=== PATIENT | female | born 1955 | race Caucasian/White ===

== ENCOUNTER 2024-08-12 08:19 | Inpatient (IN) | payer MEDICARE, MEDICAID, SELFPAY ==
[2024-08-12] VITALS (15 sets, daily range): BP systolic 136–162; BP diastolic 64–93; PULSE 72–91; RESP 16–100; TEMP 36.2–39.1; O2SAT 92–100; BMI 40.4
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
--- NOTE | 2024-08-12 08:38 | EKG_ITS ---
[facility] Test Date: 2024-08-12 Pat Name: LUCILLE BLANCO Department: Room: - Gender: Female Insurance Claims Clerk: : 1955 Requested By: Siva Cornejo Order Number: [id number] Reading MD: Siva Cornejo Measurements Intervals [place] Rate: 79 P: 49 CO: 168 QRS: 55 QRSD: 128 T: 1 QT: 400 QTc: 460 Interpretive Statements SINUS RHYTHM RIGHT BUNDLE BRANCH BLOCK [120+ ms QRS DURATION, UPRIGHT V1, 40+ ms S IN I/aVL/V4/V5/V6] MODERATE T-WAVE ABNORMALITY, CONSIDER LATERAL ISCHEMIA [-0.1+ mV T-WAVE IN I/aVL/V5/V6] Compared to ECG 12/31/2023 14:56:40 T-wave abnormality now present Possible ischemia now present /store/S0/[id number]/[id number].pdf
--- NOTE | 2024-08-12 08:55 | XR_ITS ---
Examination: AP chest single view Technique one AP portable upright chest single view Exam date and time: August 12, 2024 0929 hrs. Comparison April 22, 2020 Indications: Chest pain beginning one week ago Findings: Mild to moderate CHF Mild enlargement cardiac contour Prominent vascular congestion Perihilar edema Prominent osteopenia Impression: Mild to moderate CHF
--- NOTE | 2024-08-12 09:15 | PD.EDSYNC ---
ED Syncope RME/HPI General Chief Complaint: Syncope / Near Syncope Stated Complaint: SYNCOPAL, HYPOTENSION WHILE SEATED Arrival date/time: 08/12/24 08:19 RME / HPI RME / HPI narrative: 69 year old female with history of cerebral palsy, seizures, CHF, hypertension presents to the ED BIBA from detention for evaluation of syncopal episode today. Per wafer line worker, the patient was found slumped over in the chair. Evidently blood pressure was taken at that time and was 65/40. 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 Per medics report, on scene patients blood pressure had normalized SBP 135. No falls or trauma reported. Caregiver denies any history of syncope although does report previous episodes of lethargy. Additionally reports they consulted with patients PCP last week for vaginal pain and was prescribed antibiotics for UTI although no urine was collected. Related Data Home Medications ?Medication ?Instructions ?Recorded ?Confirmed carbamazepine 200 mg tablet 200 mg PO BID \ days ##0 04/04/09 12/31/23 (Tegretol) furosemide 40 mg tablet (Lasix) 20 mg PO QAM ##0 04/04/09 12/31/23 simvastatin 20 mg tablet 20 mg PO QDAY ##0 04/04/09 12/31/23 docusate sodium 100 mg capsule 100 mg PO BID ##0 06/05/17 12/31/23 levetiracetam 500 mg tablet 500 mg PO BID Seizures ##0 06/05/17 12/31/23 potassium chloride 8 mEq 8 PO QAM 02/23/20 04/21/20 tablet,extended release acetaminophen 325 mg tablet 650 mg PO Q4H PRN pain/fever 04/21/20 12/31/23 bisacodyl 10 mg rectal suppository 10 mg AR Q8H PRN Constipation 04/21/20 12/31/23 calcium carbonate 600 mg PO BID 04/21/20 12/31/23 cholecalciferol (vitamin D3) 10 400 unit PO BID 04/21/20 12/31/23 mcg (400 unit) tablet (Vitamin D3) ferrous sulfate 325 mg (65 mg 325 mg PO QDAY 04/21/20 12/31/23 iron) tablet ketoconazole 2 % topical cream 1 applic topical PRN PRN Rash 04/21/20 12/31/23 lactulose 10 gram/15 mL oral 30 ml PO QDAY 04/21/20 12/31/23 solution metoprolol succinate 25 mg 25 mg PO QDAY 12/31/23 12/31/23 tablet,extended release 24 hr omeprazole 20 mg tablet,delayed 20 mg PO QDAY 12/31/23 12/31/23 release Previous Rx's ?Medication ?Instructions ?Recorded apixaban 2.5 mg tablet (Eliquis) 2.5 mg PO BID #70 tabs 02/26/20 hydralazine 25 mg tablet 25 mg PO TID #90 tabs 01/03/24 losartan 100 mg tablet 100 mg PO QDAY #30 tabs 01/03/24 Allergies Allergy/AdvReac Type Severity Reaction Status Date / Time theophylline Allergy Intermediate unknown Verified 04/21/20 19:56 promethazine Allergy Unknown UNKNOWN Verified 04/17/17 11:12 amoxicillin Allergy Verified 04/21/20 19:56 ciprofloxacin (From Cipro) Allergy Verified 04/21/20 19:56 Review of Systems Review of Systems ROS Unobtainable: unobtainable due to medical condition Past Medical History Past Medical History NEUROLOGIC: Positive Neurological Disorders, Seizures and Cerebral Palsy CARDIAC: Positive Cardiac Disorders, Peripheral Vascular Disease, Hypercholesterolemia, Edema and Hypertension GASTROINTESTINAL: Positive Gastrointestinal Disorders GENITOURINARY: Negative Genitourinary Disorders MUSCULOSKELETAL: Positive Musculoskeletal Disorders and Fractures ENDOCRINE: Positive Endocrine Disorders and Hypoglycemia Surgical History SURGICAL: Positive Abdominal Surgery Social History SMOKING STATUS: Unknown if ever smoked SECOND HAND EXPOSURE: No SUBSTANCE USE: does not use ED Exam Narrative Physical exam: Physical Exam: General: The vital signs were reviewed. Has audible wheezes obvious developmental delays cordial and talks with her usual self. The patient is non-toxic, in no apparent distress and appears healthy with a patent airway, no respiratory distress and has no apparent circulatory problems. Head & Scalp: Normocephalic, atraumatic. Face: Appears normal and is without lesions, deformity. Ears: Left external pinna appears normal. Right external pinna appears normal. Eyes: The sclera is anicteric. No obvious photophobia. The Left and Right Orbit/Lid/Conjunctiva appears normal without swelling, discoloration or injection. Nose: The nose is without deformity, discharge or tenderness; Throat: Appears normal. The mucous membranes are pink and moist without exudates, redness or mass seen. The tongue appears normal. Neck: The neck is supple and no apparent mass or adenopathy. Chest: The chest wall is normal in size and symmetry and has no chest wall tenderness or crepitus. The patient displays normal ventilator effort without retractions, accessory muscle use and has adequate air movement bilaterally with bilateral wheezes and no rales. Cardiovascular: Regular rate and rhythm; No murmurs, rubs, or gallops; Gastrointestinal: The abdomen appears normal. No obvious hernias or mass. The abdomen is soft and benign, non-distended, with no pain, no guarding and no rebound tenderness. Bowel sounds are present and normal sounding. No CVA tenderness. Genitourinary: Back/Spine: Normal inspection Extremities/Musculoskeletal/lymphatic: The bilateral upper and lower extremities are warm. There is no evidence of arterial insufficiency. There is no evidence of venous insufficiency/edema. The patient spontaneously moves bilateral upper and lower extremities with no pain and no limitation of movement. There is no apparent, injury or trauma. Skin: The skin is warm, dry and intact. No rashes. No petechia. No purpura. No abnormal bruising. The color is appropriate with no cyanosis. Mental status/Psychiatric: Mental status is baseline with cognitive delays but is verbal follows commands Neurological: The patient is awake, alert, interactive, cordial, cooperative and is oriented to name and situation. The patient follows commands and answers historical question with no impairment. There is no visual disturbance apparent. The pupils are equal and reactive bilaterally with normal eye movements and no diplopia The bilateral upper and lower extremities have normal strength, normal range of motion and normal functioning. The gait, station and balance were not tested due to acuity Course Course Course Narrative: chest xray ordered to help determine etiology of cough. Quality Measures Current suspected stage: sepsis Possible source: unknown Blood cultures ordered: completed in ED Antibiotic ordered: Yes Pertinent labs: 08/12/24 08/12/24 09:25 12:50 Lactic Acid 2.7 H mMol/L 3.3 H mMol/L (0.4-2.0) (0.4-2.0) Procalcitonin 0.11 ng/ml (0.0-0.49) sepsis Orders Category Date Time Status Admit to Inpatient Status Routine Admission 08/12/24 13:00 Active Patient Condition Routine Admission 08/12/24 13:00 Ordered Activity as Tolerated Routine Care 08/12/24 13:01 Ordered Bedside COVID-19 Antigen Test NOW Care 08/12/24 09:24 Active Bedside Influenza A&B Antigen Test NOW Care 08/12/24 09:23 Completed EKG (ED ONLY) *Do not use* NOW Care 08/12/24 08:38 Completed Miscellaneous Nursing Order X1 Care 08/12/24 09:57 Active Miscellaneous Nursing Order X1 Care 08/12/24 10:17 Active Neuro Check Q4H Care 08/12/24 12:59 Active Notify provider NEEDED Care 08/12/24 13:00 Active Obtain weight daily Care 08/12/24 13:01 Active Vital Signs, Non-Routine Q4H Care 08/12/24 13:00 Ordered Vital Signs, Non-Routine Q4H Care 08/12/24 17:00 Ordered Vital Signs, Non-Routine Q4H Care 08/12/24 21:[address] chest abdomen pelvis w con SEPSIS PROTOCOL Stat Exams 08/12/24 12:22 Taken EKG (ED Only) Stat Exams 08/12/24 08:38 Draft XR chest 1V portable Stat Exams 08/12/24 08:55 Completed B-Type Natriuretic Peptide Stat Lab 08/12/24 09:25 Completed Blood Culture (Lab) Stat Lab 08/12/24 09:25 Received CBC AM DRAW Lab 08/13/24 05:00 Ordered CBC AM DRAW Lab 08/14/24 05:00 Ordered CBC AM DRAW Lab 08/15/24 05:00 Ordered CBC Stat Lab 08/12/24 09:25 Completed Comprehensive Metabolic Panel AM DRAW Lab 08/13/24 05:00 Ordered Comprehensive Metabolic Panel AM DRAW Lab 08/14/24 05:00 Ordered Comprehensive Metabolic Panel AM DRAW Lab 08/15/24 05:00 Ordered Comprehensive Metabolic Panel Stat Lab 08/12/24 09:25 Completed Lactate (Lactic Acid) Stat Lab 08/12/24 09:25 Completed Lactic Acid, 3 HR Stat Lab 08/12/24 12:50 Completed Lipase Stat Lab 08/12/24 09:25 Completed Magnesium AM DRAW Lab 08/13/24 05:00 Ordered Magnesium AM DRAW Lab 08/14/24 05:00 Ordered Magnesium AM DRAW Lab 08/15/24 05:00 Ordered Magnesium Stat Lab 08/12/24 09:25 Completed Procalcitonin Stat Lab 08/12/24 09:25 Completed RSV [Respiratory Syncytial Virus Ag] Stat Lab 08/12/24 09:24 Ordered Thyroid Stimulating Hormone Routine Lab 08/13/24 13:02 Ordered Troponin I Stat Lab 08/12/24 09:25 Completed Urinalysis Stat Lab 08/12/24 09:14 Completed Urinalysis, C/S if Indicated Stat Lab 08/12/24 09:14 Completed Venous Blood Gas Stat Lab 08/12/24 09:25 Completed ALBUTEROL RT 0.5ml [Proventil Rt 0.5ml] Med 08/12/24 09:22 Discontinued 5 mg INH X1 ONE Acetaminophen Tab [Tylenol ES Tab] Med 08/12/24 10:26 Discontinued 1,000 mg PO X1 ONE Acetaminophen Tab [Tylenol Tab] Med 08/12/24 12:59 Active 650 mg PO Q6H PRN Acetaminophen Tab [Tylenol Tab] Med 08/12/24 12:59 Discontinued 650 mg PO Q6H PRN Docusate Sod [Colace] Med 08/13/24 09:00 Active 100 mg PO DAILY Enoxaparin [Lovenox] Med 08/13/24 09:00 Discontinued 40 mg SC QDAY Meropenem Inj [Merrem Inj] 1,000 mg Med 08/12/24 09:59 Discontinued SODIUM CHLORIDE 0.9% (Popper) [NS 0.9% (Popper)] 50 ml IV X1 MethylPREDNISolone.* [SoluMEDROL Inj] Med 08/12/24 09:22 Discontinued 125 mg IVP X1 ONE Milk Of Magnesia Susp [Mom Susp] Med 08/12/24 12:59 Active 30 ml PO QDAY PRN Ondansetron Inj [Zofran Inj] Med 08/12/24 12:59 Active 4 mg IV Q6H PRN Pantoprazole [Protonix] Med 08/13/24 09:00 Active 20 mg PO DAILY Sodium Chloride 0.9% 1000 ml [Ns] 1,000 ml Med 08/12/24 10:19 Discontinued IV 999 mls/hr Sodium Chloride Rt Luba 0.9% [NS Rt Luba 0.9%] Med 08/12/24 09:22 Active 3 ml INH PRN PRN Vancomycin/Ns 1 gm Ivpb 200 ml Med 08/12/24 13:15 Discontinued IV X1 Code Status Routine Oth 08/12/24 12:59 Ordered Oxygen Delivery PRN RT 08/12/24 12:59 Active Vital Signs Vital signs: Vital Signs Temperature 99.8 F 08/12/24 08:28 Pulse Rate 77 08/12/24 08:28 Respiratory Rate 27 H 08/12/24 08:28 Blood Pressure 139/73 H 08/12/24 08:28 Pulse Oximetry (%) 95 08/12/24 08:28 Oxygen Delivery Method Room Air 08/12/24 08:28 Pulse ox is 95% on room air which is adequate. Syncope MDM Narrative MDM Narrative:: Patient is a 69-year-old developmentally from a boarding care facility comes in because she was found slumped over and hypotensive at the facility. When EMS arrived they did a blood pressure blood pressure was evidently normalized but she was also alert and engaging again. They have noted that she is coughing has a history of congestive heart failure On arrival patient has acrocyanosis of her feet with some pitting edema which evidently is chronic for this patient. She is alert and interacting. O2 sats are 95% on room air. She denied any belly pain on my initial evaluation but she was wheezing and we gave her breathing treatments which she is much improved on recheck at 1225 hrs. Labs came back with an elevated white count of 21,000 with 89% neutrophils hemoglobin is 14.2 platelet count was 274,000. Venous blood gas pH is 7 3 a pCO2 of 48. Sodium 132 potassium 3.7 chloride 96 CO2 27.3 BUN 12 creatinine is 0.5. Glucose is 132 lactic acid elevated 2.7. BNP came back at 271. Procalcitonin came back negative. Urinalysis came back negative. Chest x-ray reveals some mild cardiomegaly and there is diffuse interstitial lung markings most likely consistent with congestive heart failure. Couple hours after arrival she spiked a temperature which was checked rectally and was 102.7. And a septic alert was called. The source of the patient's fever is unclear at this time as the urine has no obvious infection a chest x-ray has diffuse interstitial increased fluid most likely. There is no history of neoplasm. Her leg edema is chronic and present and does not appear to be acutely changed per the caregiver. Note there is no evidence of skin infection on her body that was found. In her throat had no complaints of pain or erythema. Should be noted when I came back and rechecked at 1225 hrs. she was complaining of belly pain at that time and her lower diffuse fashion. At this time we will get a CAT scan of her chest abdomen pelvis to see if we can find a source for her fever and further workup her belly Because of the fever tachycardia and leukocytosis we went ahead and gave her meropenem and I just added on vancomycin to extend coverage. Her blood pressures have been normal so far she just got a single fluid bolus as of 1230 hrs. Note this patient is is acrocyanosis elevated lactic acid fever tachycardic leukocytosis present at greater risk. Hospitalist was contacted and Dr. Funk will be admitting. Patient data External records reviewed:: [facility] previous records (I reviewed admission from 12/31/2023 through 01/03/2024) and EMS form Clinical information provided by:: wafer line worker Social determinants that could affect healthcare access:: housing (detention resident ) Patient has the following chronic illnesses:: cerebral palsy, seizures, CHF, hypertension How is presenting disease/condition affected by chronic disease/condition?: exacerbated by Evaluation data The following diagnostics were reviewed and interpreted by me:: lab results, radiology exam(s) and EKG tracing(s) (Sinus rhythm, rate 79, no STEMI. ) Lab and/or radiology exams considered but not ordered:: None Interpretation Summary: Ordering Physician: Siva Cornejo MD Date of Service: 08/12/24 Procedure(s): XR chest 1V portable Accession Number(s): [id number] cc: Solomon Dickson MD; Siva Cornejo MD; Aguila Waldron MD~ Examination: AP chest single view Technique one AP portable upright chest single view Exam date and time: August 12, 2024 0929 hrs. Comparison April 22, 2020 Indications: Chest pain beginning one week ago Findings: Mild to moderate CHF Mild enlargement cardiac contour Prominent vascular congestion Perihilar edema Prominent osteopenia Impression: Mild to moderate CHF Dictated By: Agulia Waldron MD Signed By: <Electronically signed by Aguila Waldron MD in OV> 08/12/24 0943 Medications / Prescriptions Medications or Prescriptions considered but not ordered:: None Medication administrations:: Medication Administration History Acetaminophen (Acetaminophen 325 Mg Tablet) 650 mg PO Q6H PRN PRN Reason: PAIN SCALE 1-3 (mild Stop: 09/11/24 12:58 Acetaminophen (Acetaminophen 500 Mg Tablet) 1,000 mg PO Q6H PRN PRN Reason: Fever >100 Stop: 09/11/24 12:58 Albuterol (Albuterol Inh 8 Gm) 2 puff INH Q2HR PRN; Protocol PRN Reason: wheezing, SOB Stop: 09/11/24 13:59 Albuterol/Ipratropium (Albuterol/Ipratropium (Duoneb) Rt Luba 3 Ml Nebu) 3 ml INH Q4HRRT PRN; Protocol PRN Reason: sob/wheezing Stop: 09/11/24 14:59 Apixaban (Apixaban 2.5 Mg Tablet) 2.5 mg PO BID BHARAT Stop: 09/11/24 20:59 Atorvastatin Calcium (Atorvastatin Calcium 20 Mg Tablet) 20 mg PO HS BHARAT Stop: 09/11/24 20:59 Carbamazepine (Carbamazepine 100 Mg Chew) 200 mg PO BID BHARAT Stop: 09/11/24 20:59 Docusate Sodium (Docusate Sod 100 Mg Capsule) 100 mg PO DAILY BHARAT; Protocol Stop: 09/12/24 08:59 Lactulose (Lactulose Syrup 20 Gm/30 Ml Udc) 20 gm PO DAILY BHARAT; Protocol Stop: 09/12/24 08:59 Levetiracetam (Levetiracetam 250 Mg Tablet) 500 mg PO BID BHARAT Stop: 09/11/24 20:59 Magnesium Hydroxide (Milk Of Magnesia Susp 30 Ml Udc) 30 ml PO QDAY PRN; Protocol PRN Reason: CONSTIPATION Stop: 09/11/24 12:58 Metoprolol Succinate (Metoprolol Succinate Xl 25 Mg Tabcr) 50 mg PO DAILY BHARAT Stop: 09/12/24 08:59 Ondansetron HCl (Ondansetron Inj 2 Mg/Ml Inj 2 Ml) 4 mg IV Q6H PRN; Protocol PRN Reason: NAUSEA OR VOMITING Stop: 09/11/24 12:58 Pantoprazole Sodium (Pantoprazole 20 Mg Tablet) 20 mg PO DAILY [facility] Stop: 09/12/24 08:59 Sodium Chloride (Sodium Chloride Rt [place] 0.9% 3 Ml Nebu) 3 ml INH PRN PRN PRN Reason: SOLN Stop: 09/11/24 09:21 Last Admin: 08/12/24 09:35 Dose: 3 ml Documented By: AA Discontinued Medications Acetaminophen (Acetaminophen 500 Mg Tablet) 1,000 mg PO X1 ONE Stop: 08/12/24 10:27 Last Admin: 08/12/24 10:29 Dose: 1,000 mg Documented By: GM Acetaminophen (Acetaminophen 325 Mg Tablet) 650 mg PO Q6H PRN PRN Reason: Fever >101.5 Stop: 09/11/24 12:58 Albuterol (Albuterol Rt 2.5 Mg/0.5 Ml Nebu) 5 mg INH X1 ONE Stop: 08/12/24 09:23 Last Admin: 08/12/24 09:34 Dose: 5 mg Documented By: AA Enoxaparin Sodium (Enoxaparin Sod Inj 40 Mg/0.4 Ml Syringe) 40 mg SC QDAY BHARAT Stop: 08/27/24 08:59 Meropenem 1,000 mg/ Sodium (Chloride) 50 mls @ 100 mls/hr IV X1 ONE Stop: 08/12/24 10:00 Last Infusion: 08/12/24 10:42 Dose: Infused Documented By: Admin: 08/12/24 10:11 Dose: 100 mls/hr Documented By: GM Sodium Chloride (Ns) 1,000 mls @ 999 mls/hr IV .Q1H1M ONE Stop: 08/12/24 11:19 Last Infusion: 08/12/24 13:29 Dose: Infused Documented By: Admin: 08/12/24 10:33 Dose: 999 mls/hr Documented By: GM Vancomycin/Sodium Chloride (Vancomycin/Ns 1 Gm Ivpb) 200 mls @ 120 mls/hr IV X1 ONE Stop: 08/12/24 14:54 Last Admin: 08/12/24 13:36 Dose: 120 mls/hr Documented By: GM Methylprednisolone Sodium Succinate (Methylprednisolone Sod Succ 62.5 Mg/Ml 2ml Vial) 125 mg IVP X1 ONE Stop: 08/12/24 09:23 Last Admin: 08/12/24 09:44 Dose: 125 mg Documented By: GM See above Consultations Consultation(s) initiated? (list below): Yes Consultation #1 (Physician, Specialty, Details): I spoke with hospitalist Dr. Funk. Discussed patients PMHx, HPI, ED course, exam findings, labs, and radiology results. The hospitalist agree to accept the patient for admission. Diagnosis Syncope Differential Diagnosis: syncope due to orthostatic hypotension, vasovagal syncope and dehydration Most likely diagnosis given after review of the tests above:: shortness of breath congestive heart failure sepsis fever closed intertrochanteric fracture of left femur leukocytosis elevated lactic acid level acrocyanosis Admission Indicated Admission indicated?: indicated Admission Request Was there a request for admission?: Yes Admission Attestation Admission request attestation: Discussed case with [] from Hospitalist service regarding admission. Discussed patients ED course, exam findings, labs, and radiology results. The Hospitalist [agrees,declines] to accept the patient for admission. Disposition Plan Disposition Plan: Admit Critical Care Time Critical Care Time Critical Care Time: Yes Total Critical Care Time (min.): 45 Attestation: The high probability of sudden, clinically significant deterioration in the patient's condition required the highest level of my preparedness to intervene urgently. The services I provided to this patient were to treat and/or prevent clinically significant deterioration. Services included the following: chart data review, reviewing nursing notes and/or old charts, documentation time, product management consultant collaboration regarding findings and treatment options, medication orders and management, direct patient care, vital sign assessments and ordering, interpreting and reviewing diagnostic studies and lab tests. Aggregate critical care time includes only time during which I was engaged in work directly related to the patient's care, as described above, whether at bedside or elsewhere in the Emergency Department. It did not include time spent performing other reported procedures or the services of residents, students, nurses or physician assistants. Discharge Plan Plan Patient Disposition: Admit Acute Care w/in Hospital Disposition Comment: Hospitalist Problem List Clinical Impression: Shortness of breath, Congestive heart failure, Sepsis, Fever, Closed intertrochanteric fracture of left femur, Leukocytosis, Elevated lactic acid level, Acrocyanosis
[2024-08-12 09:31] LABS: Lactate (Lactic Acid) 2.7 mMol/L (0.4-2.0)
[2024-08-12 09:31] LABS: Collection Type, Urine Clean Catch
[2024-08-12 09:32] LABS: Base Excess, Venous 2 (-3-3); O2 Saturation, Venous 45 % (96-97); PCO2, Venous 48 mmHg (36-56); PO2, Venous 26 mmHg (15-58); pH, Venous 7.38 (7.33-7.66)
[2024-08-12] MEDS: ALBUTEROL RT 2.5 MG/0.5 ML NEBU 5 MG INH (09:34)
[2024-08-12 09:35] LABS: Basophils % (Auto) 0 % (0-2.5); Eosinophils # (Auto) 0.1 Thou/mm3 (0.0-0.5); Eosinophils % (Auto) 1 % (0-10); Hematocrit 41.6 % (36.0-46.0); Hemoglobin 14.2 g/dL (12.0-16.0); Immature Granulocytes % (Auto) 1 % (0-0); Immature Granulocytes Auto 0.12 Thou/mm3 (0.00-0.00); Lymphocytes # (Auto) 0.5 Thou/mm3 (1.0-4.8); Lymphocytes % (Auto) 2 % (10-50); Mean Corpuscular HGB Conc 34.1 g/dl (31.0-37.0); Mean Corpuscular Hemoglobin 31.2 pg (25.0-35.0); Mean Corpuscular Volume 91 fL (80-100); Monocytes # (Auto) 1.5 Thou/mm3 (0.0-0.8); Monocytes % (Auto) 7 % (0-12); Neutrophils # (Auto) 18.8 Thou/mm3 (1.8-7.7); Neutrophils % (Auto) 89 % (37-80); Nucleated Red Blood Cell % 0 /100 WBC (0); Platelet Count 274 Thou/mm3 (140-440); RDW Standard Deviation 41.5 fL (36.4-46.3); Red Blood Count 4.55 Miln/mm3 (4.00-5.20); White Blood Count 21.1 Thou/mm3 (3.6-11.0)
[2024-08-12] MEDS: SODIUM CHLORIDE RT SOL 0.9% 3 ML NEBU INH (09:35)
[2024-08-12 09:43] LABS: Bilirubin,Urine Negative (Negative); Blood,Urine Negative (Negative); Clarity,Urine Clear (Clear/Hazy); Color,Urine Yellow (Lt Yel-Yel); Culture Indicated,Urine Not Indicated; Glucose, Urine Negative (Negative); Ketones,Urine Negative (Negative); Leukocyte Esterase,Urine Negative (Negative); Nitrite,Urine Negative (Negative); Protein,Urine Negative (Neg - Trace); RBC,Urine 1 /hpf (0-3); Specific Gravity,Urine 1.016 (1.001-1.035); Squamous Epithelial Cell,Urine < 1 /hpf (0-5); Urobilinogen,Urine Negative mg/dL (0.0-1.0); WBC,Urine 1 /hpf (0-5)
[2024-08-12] MEDS: MethylPREDNISolone SOD SUCC 62.5 MG/ML 2ML VIAL 125 MG IVP (09:44)
[2024-08-12 09:50] LABS: B-Type Natriuretic Peptide 271 pg/mL (0-100)
[2024-08-12] MEDS: MEROPENEM INJ 1,000 MG in SODIUM CHLORIDE 0.9% (Popper) 50 ML 100 MG IV (10:11)
--- NOTE | 2024-08-12 10:20 | PC.NURSE ---
ICE PACKS APPLIED UNDER PT'S KNEES BILATERALLY AND UNDER PT'S AXILLARY BILATERALLY AT THIS TIME.
[2024-08-12 10:29] LABS: Alanine Aminotransferase 16 U/L (10-49); Albumin, Serum 4.5 gm/dL (3.4-4.8); Albumin/Globulin Ratio 1.8 (1.2-2.2); Anion Gap 9 (7-16); Aspartate Amino Transferase 15 U/L (0-34); BUN/Creatinine Ratio 24 Ratio (12-20); Bilirubin,Total 0.5 mg/dL (0.3-1.2); Blood Urea Nitrogen 12 mg/dL (9-23); Calcium 9.3 mg/dL (8.3-10.6); Calcium (Corrected) 9.3 mg/dL (8.5-10.1); Carbon Dioxide 27.3 mMol/L (20.0-31.0); Chloride 96 mMol/L (98-107); Creatinine (Component) 0.5 mg/dL (0.6-1.3); Estimated Creatinine Clearance 89.8 mL/min (>60); Globulin 2.5 gm/dL (2.3-3.5); Glucose 132 mg/dL (74-106); Lipase 31 U/L (12-53); Osmolality,Calculated 266 (275-295); Potassium 3.7 mMol/L (3.4-5.1); Procalcitonin 0.11 ng/ml (0.0-0.49); Sodium 132 mMol/L (136-145); Troponin I < 0.020 ng/mL (0.0-0.045); eGFR > 60 See Note
[2024-08-12] MEDS: ACETAMINOPHEN 500 MG TABLET 1000 MG PO (10:29)
[2024-08-12] MEDS: SODIUM CHLORIDE 0.9% 1000 ML 1,000 ML 999 ML IV (10:33)
[2024-08-12 10:48] LABS: Alkaline Phosphatase 163 U/L (46-116)
--- NOTE | 2024-08-12 12:22 | XR_ITS ---
Examination: CT chest with intravenous contrast CT abdomen with intravenous contrast CT pelvis with intravenous contrast 2-D coronal and sagittal reconstructions Time of exam: August 12, 2024 1447 hrs. Indications: Sepsis alert shortness of breath chest abdominal pain today CTDI: vol (mGy) : 9.01 DLP: (mGycm): 633 Technique: Multiple axial images of the chest, abdomen and pelvis with intravenous contrast, 3.0 mm slice thickness. Images obtained post intravenous injection Isovue 370 60 cc. 2-D sagittal and coronal reconstructions. Low dose protocols were performed. One or more of the following dose reduction techniques were used; automated exposure control, adjustment of the mA and/or KV according to patient size, use of iterative reconstruction technique. Findings: 4 mm right thyroid nodule No thoracic aortic aneurysm dilatation No pulmonary artery emboli on this non-CTA study Mild bilateral hilar lymphadenopathy 4 mm pulmonary nodule right upper lobe image 141 10 mm pulmonary nodule lingular segment image 146 Moderate vascular congestion No lobar pneumonia Tiny low-density anterior right lobe liver lesions image 126 which may represent cysts Gallstones Spleen not enlarged Septated low-density mass, irregular margins, head of the pancreas, 4.3 x 2.2 cm Minimal left hydronephrosis, no renal or ureteral calculi Aortic calcification no aneurysmal dilatation Atrophic calcified uterus Distended urinary bladder with irregular margins Moderate stool in the rectum Impression: 4 mm right thyroid nodule Mild bilateral hilar lymphadenopathy No pneumonia or pulmonary edema Moderate vascular congestion Cholelithiasis Septated low-density mass irregular margins pancreatic head, recommend MRI abdomen pancreas follow-up pre and postcontrast No abdominal or pelvic abscess
[2024-08-12 12:30] LABS: Reflex Lactate? Y
[2024-08-12 13:00] LABS: Lactic Acid, 3 HR 3.3 mMol/L (0.4-2.0)
[2024-08-12] MEDS: VANCOMYCIN/NS 1 GM IVPB 200 ML IV (13:36)
--- NOTE | 2024-08-12 15:05 | ESHP_ITS ---
Documentation for date of: 08/12/24 HPI History of Present Illness History of present illness: HPI is limited as patient is poor historian. History was obtained through chart review and also speaking directly with shelter Emmanuelle is a 69 y/o female with PMHx of cerebral palsy, developmental delay, hypertension, seizures, bedbound since 2020 (takes Eliquis DVT prophylaxis) comes in for an evaluation of generalized weakness and fatigue. When speaking of the shelter, it was noted that patient was having trouble getting out of the shower this morning. She was also complaining of some fatigue, and required assistance to get up from the shower and she usually does not. Of note, her blood pressure had measured while she was at home was 78/62. She says for the past week has been complaining of some pelvic/abdominal pain in which she went to go see her PCP. Her PCP gave her an antibiotic course of Macrobid in which she finished today. She has not been complaining of chest pain or shortness of breath at this time. He has bowel movements every 2 days. She denies any sick contacts patient or recent travel. She has been living in the group since 2020. She is conserved by [facility]. She sees her pig sticker, Dr. Jennings, and was supposed to have a visit today. No other complaints at this time. ED course: Patient arrived with a temperature of 90.8, heart rate of 77, respiratory rate of 27, blood pressure of 137/73, saturating 95% on room air. She was worked up and was found to have a sodium 132, potassium of 3.7, bicarb of 27, BUN/creatinine 12 and 0.5 respectively, glucose of 132, white count of 21, hemoglobin of 14.2. VBG showed pH of 7.38, pCO2 of 48. Chest x-ray was done and showed mild to moderate CHF. Lactate was also done and was initially 2.7 and transfer 3.3. BNP showed 271, Pro-Miguel negative, lipase negative, UA was negative as well. EKG showed bundle branch block was present on previous EKGs. Was given albuterol x 1, Solu-Medrol 125 x1, meropenem 1000 mg x1, Tylenol x 1, normal saline bolus 1L x1, vancomycin x 1. Medicine was consulted and patient was admitted to the floors. Past medical history: As above Surgical history: No known surgeries Allergies: Theophylline, promethazine, amoxicillin, ciprofloxacin Meds: Tylenol, milk of mag, Dulcolax, carbamazepine, Eliquis 5, Lasix 20 mg (as needed for edema) losartan, Keppra, hydralazine, metoprolol succinate 25, omeprazole 20 mg, simvastatin 20 mg Family History: No family history on patient, patient is conserved Social history: Has lived in this moment since 2020, used to be ambulatory, however is mostly bedbound after a fall. She is able to get up at times. No history history of drug use, alcohol use or smoking history. Unsure if patient was born in [place] and is not involved at this point. Review of Systems Review of Systems Narrative Review of Systems: Constitutional: No fever, chills, fatigue, weakness, weight loss HEENT: No eye pain, vision loss, ear pain, hearing loss, dysphagia, Cardiovascular: No chest pain, palpitations, edema, pain with walking Respiratory: No cough, shortness of breath, wheezing GI: No NVD, + abdominal pain, no constipation, blood in stool, loss of appetite, heartburn Extremities: No presence of pitting edema MSK: No back pain, joint pain, joint swelling Neuro: No dizziness, numbness, weakness, headaches, seizures, tremors Psych: No anxiety, depression Exam Vital Signs Temp Pulse Resp BP Pulse Ox O2 Del Method O2 Flow Rate 98.4 F 78 16 157/83 H 97 Room Air 8 08/12/24 14:22 08/12/24 15:00 08/12/24 14:22 08/12/24 14:22 08/12/24 14:22 08/12/24 14:22 08/12/24 10:04 Narrative Exam General: AAOx2, poor historian, developmentally delayed, does not look at you when speaking to her, obese family, bed-bound HEENT: Dry mucous membranes, poor dentition, inward deviation of eyes bilat, Cardiovascular: S1, S2, radial pulses +2 bilat, RRR Pulmonary: + cough, + wheezing mainly in L lung GI: + tenderness to palpitation in lower abdomen, slightly distended, no guarding, rigidity, rebound tenderness or distension Extremities: No presence of trace or pitting edema in lower extremities bilaterally, dorsalis pedis pulses +2 bilaterally Neuro: AAO23, no focal motor or sensory deficits in the UE or LE bilat Psych: Slightly cooperative Results: Labs 08/12/24 09:25 08/12/24 09:25 Labs: Short CBC 08/12/24 Range/Units 09:25 WBC 21.1 H (3.6-11.0) Thou/mm3 Hgb 14.2 (12.0-16.0) g/dL Hct 41.6 (36.0-46.0) % Plt Count 274 (140-440) Thou/mm3 BMP 08/12/24 09:25 Sodium 132 L Potassium 3.7 Chloride 96 L Carbon Dioxide 27.3 BUN 12 Creatinine 0.5 L Glucose 132 H Calcium 9.3 Cardiac Enzymes 08/12/24 Range/Units 09:25 Troponin I < 0.020 (0.0-0.045) ng/mL Liver Function 08/12/24 Range/Units 09:25 Total Bilirubin 0.5 (0.3-1.2) mg/dL AST 15 (0-34) U/L ALT 16 (10-49) U/L Alkaline Phosphatase 163 H (46-116) U/L Albumin 4.5 (3.4-4.8) gm/dL Urine 08/12/24 Range/Units 09:14 Urine Color Yellow (Lt Yel-Yel) Urine Clarity Clear (Clear/Hazy) Urine pH 7.0 (5.0-7.0) Ur Specific [place] 1.016 (1.001-1.035) Urine Protein Negative (Neg - Trace) Urine Glucose (UA) Negative (Negative) ABG Interpretation ABG results: 08/12/24 09:25 VBG pH 7.38 VBG pCO2 48 VBG pO2 26 VBG Base Excess 2 Quality Measures Quality Measures sepsis Current suspected stage: severe sepsis Possible source: GI tract/intra- abdominal Blood cultures ordered: completed in ED Antibiotic ordered: Yes Advance care planning discussed with:: patient Medications Home Medications and Allergies Home Medications ?Medication ?Instructions ?Recorded ?Confirmed ?Type carbamazepine 200 mg tablet 200 mg PO BID \ days ##0 1 12/31/23 History (Tegretol) furosemide 40 mg tablet (Lasix) 20 mg PO QAM ##0 04/0412/31/23 History simvastatin 20 mg tablet 20 mg PO QDAY ##0 04/04/09 0 12/31/23 History docusate sodium 100 mg capsule 100 mg PO BID ##0 06/0512/31/23 History levetiracetam 500 mg tablet 500 mg PO BID Seizures ##0 06/05/17 12/31/23 History potassium chloride 8 mEq 8 PO QAM 02/23/20 04/21/20 H istory tablet,extended release acetaminophen 325 mg tablet 650 mg PO Q4H PRN pain/fev er 04/21/20 12/31/23 History bisacodyl 10 mg rectal suppository 10 mg MO Q8H PRN Co nstipation 04/21/20 12/31/23 History calcium carbonate 600 mg PO BID 04/21/2012/30 History cholecalciferol (vitamin D3) 10 400 unit PO BID 12/31/23 History mcg (400 unit) tablet (Vitamin D3) ferrous sulfate 325 mg (65 mg 325 mg PO QDAY 04/21/20 12/31/23 History iron) tablet ketoconazole 2 % topical cream 1 applic topical PRN MO N Rash 04/21/20 12/31/23 History lactulose 10 gram/15 mL oral 30 ml PO QDAY 04/21/20 History solution metoprolol succinate 25 mg 25 mg PO QDAY 12/31/2312/15 History tablet,extended release 24 hr omeprazole 20 mg tablet,delayed 20 mg PO QDAY 12/31/23 12/31/23 History release Allergies Allergy/AdvReac Type Severity Reaction Status Date / Time theophylline Allergy Intermediate unknown Verified 04/21/20 19:56 promethazine Allergy Unknown UNKNOWN Verified 04/17/17 11:12 amoxicillin Allergy Verified 04/21/20 19:56 ciprofloxacin (From Cipro) Allergy Verified 04/21/20 19:56 Visit Medications Acetaminophen (Acetaminophen 325 Mg Tablet) 650 mg PO Q6H PRN PRN Reason: PAIN SCALE 1-3 (mild Stop: 09/11/24 12:58 Acetaminophen (Acetaminophen 500 Mg Tablet) 1,000 mg PO Q6H PRN PRN Reason: Fever >100 Stop: 09/11/24 12:58 Albuterol (Albuterol Inh 8 Gm) 2 puff INH Q2HR PRN; Protocol PRN Reason: wheezing, SOB Stop: 09/11/24 13:59 Albuterol/Ipratropium (Albuterol/Ipratropium (Duoneb) Rt [place] 3 Ml Nebu) 3 ml INH Q4HRRT PRN; Protocol PRN Reason: sob/wheezing Stop: 09/11/24 14:59 Apixaban (Apixaban 2.5 Mg Tablet) 2.5 mg PO BID BHARAT Stop: 09/11/24 20:59 Atorvastatin Calcium (Atorvastatin Calcium 20 Mg Tablet) 20 mg PO HS BHARAT Stop: 09/11/24 20:59 Carbamazepine (Carbamazepine 100 Mg Chew) 200 mg PO BID BHARAT Stop: 09/11/24 20:59 Docusate Sodium (Docusate Sod 100 Mg Capsule) 100 mg PO DAILY BHARAT; Protocol Stop: 09/12/24 08:59 Lactulose (Lactulose Syrup 20 Gm/30 Ml Udc) 20 gm PO DAILY BHARAT; Protocol Stop: 09/12/24 08:59 Levetiracetam (Levetiracetam 250 Mg Tablet) 500 mg PO BID BHARAT Stop: 09/11/24 20:59 Magnesium Hydroxide (Milk Of Magnesia Susp 30 Ml Udc) 30 ml PO QDAY PRN; Protocol PRN Reason: CONSTIPATION Stop: 09/11/24 12:58 Metoprolol Succinate (Metoprolol Succinate Xl 25 Mg Tabcr) 50 mg PO DAILY [facility] Stop: 09/12/24 08:59 Ondansetron HCl (Ondansetron Inj 2 Mg/Ml Inj 2 Ml) 4 mg IV Q6H PRN; Protocol PRN Reason: NAUSEA OR VOMITING Stop: 09/11/24 12:58 Pantoprazole Sodium (Pantoprazole 20 Mg Tablet) 20 mg PO DAILY [facility] Stop: 09/12/24 08:59 Sodium Chloride (Sodium Chloride Rt [place] 0.9% 3 Ml Nebu) 3 ml INH PRN PRN PRN Reason: SOLN Stop: 09/11/24 09:21 Last Admin: 08/12/24 09:35 Dose: 3 ml Discontinued Medications Acetaminophen (Acetaminophen 500 Mg Tablet) 1,000 mg PO X1 ONE Stop: 08/12/24 10:27 Last Admin: 08/12/24 10:29 Dose: 1,000 mg Acetaminophen (Acetaminophen 325 Mg Tablet) 650 mg PO Q6H PRN PRN Reason: Fever >101.5 Stop: 09/11/24 12:58 Albuterol (Albuterol Rt 2.5 Mg/0.5 Ml Nebu) 5 mg INH X1 ONE Stop: 08/12/24 09:23 Last Admin: 08/12/24 09:34 Dose: 5 mg Enoxaparin Sodium (Enoxaparin Sod Inj 40 Mg/0.4 Ml Syringe) 40 mg SC QDAY BHARAT Stop: 08/27/24 08:59 Meropenem 1,000 mg/ Sodium (Chloride) 50 mls @ 100 mls/hr IV X1 ONE Stop: 08/12/24 10:00 Last Infusion: 08/12/24 10:42 Dose: Infused Sodium Chloride (Ns) 1,000 mls @ 999 mls/hr IV .Q1H1M ONE Stop: 08/12/24 11:19 Last Infusion: 08/12/24 13:29 Dose: Infused Vancomycin/Sodium Chloride (Vancomycin/Ns 1 Gm Ivpb) 200 mls @ 120 mls/hr IV X1 ONE Stop: 08/12/24 14:54 Last Admin: 08/12/24 13:36 Dose: 120 mls/hr Methylprednisolone Sodium Succinate (Methylprednisolone Sod Succ 62.5 Mg/Ml 2ml Vial) 125 mg IVP X1 ONE Stop: 08/12/24 09:23 Last Admin: 08/12/24 09:44 Dose: 125 mg Assessment & Plan Plan Assessment Emmanuelle is a 69 y/o female with PMHx of cerebral palsy, developmental delay, hypertension, seizures, bedbound since 2020 (takes Eliquis DVT prophylaxis) comes in for an evaluation of sepsis. Assessment Emmanuelle is a 69 y/o female with PMHx of cerebral palsy, developmental delay, hypertension, seizures, bedbound since 2020 (takes Eliquis DVT prophylaxis) comes in for an evaluation of sepsis. #?Sepsis, however no source of infection identified as of yet #Urinary retention #Abdominal pain qSOFA: 1 point, not high risk Source: Likely abdomen Patient did have a fever of 102 rectally, tachycardic Lactate 2.7 -> 3.3 White count of 21 Unsure why patient did not have some abdominal flexion at this time No recent surgeries No abdominal wounds visualized on physical exam Will need to further workup Patient was given meropenem in the ED Spoke with care at home, denies any recent sick contacts Patient appears to be distended from a bladder standpoint, could be contributing to abdominal pain Pending to put abx until CT is done Plan: ?Tylenol as needed for fever ?Follow-up blood cultures ?Trend lactate every 6 hours ?CT chest abdomen pelvis ?MRSA ?Follow-up RSV ?Ca catheter #History of hypertension #Hypotension #History of hyperlipidemia Blood pressure was measured to 70 systolic at home [employer] Dr. Jennings Plan: ?Will resume home blood pressure medicines of blood pressure improves ?Will consider doing orthostatics once blood pressure improves ?Resumed Lipitor 20 mg at at bedtime ?Resumed home metoprolol XL 50 mg #History of seizures Chronic Patient did not have seizure in the ED Plan: ?Resumed home Keppra 500 mg twice daily by mouth ?Resumed home carbamazepine 200 mg twice daily by mouth ?Seizure precautions ?Neurochecks every 4 hours #Bedbound #History of cerebral palsy #Developmental delay Patient is conserved, takes Eliquis she is mainly bedbound for DVT prophylaxis Plan: ?Will consider geriatric social worker referral ?Resumed home Eliquis 2.5 mg twice daily #Health Maintenance Disposition: MedSurg DVT prophylaxis: Eliquis 2.5 mg BID GI prophylaxis: Protonix Diet: Cardiac CODE STATUS: Full code Patient seen and care discussed with my senior resident, Dr. Jaffe, and my attending physician, Dr. Good Sanchse, PGY-1 Patient examined and case discussed with the team including attending physician. Note reviewed, I agree with the care plan as documented. Ms Handley is a 69 y/o female with PMHx of cerebral palsy, developmental delay, hypertension, seizures, bedbound since 2020 (takes Eliquis DVT prophylaxis) comes in for severe sepsis secondary to unknown etiology. CT abdomen/pelvis showed distended urinary bladder, pending final read. She had a temp of 102 and WBC 21 on work up. LA 3.3 at the time of admission. Patient was given Meropenem x1 in the ED. Plan: - Follow up CT abdo/pelvis read - Will consider IV Zosyn 3.3 q6H to be started after final CT read - Trend LA, follow up MRSA Deepak Jaffe MD, PGY 2 Disclaimer: The document below may not be free of grammatical/phonetic/typographic errors due to use of voice recognition software. This does not dissuade from the commitment to providing health care with the patient's best interest in mind. L Attending Provider Attestation/Addendum I have discussed and was present for the essential components of the history, physical examination, diagnosis, and treatment plan with the resident. I agree with the patient's care as documented by the resident and amended herein by me. Donald Funk, . Although this document has been carefully reviewed, there may still be some phonetic and other typographical errors. These errors are purely grammatical due to imperfections in the software program and should not be construed in any way to compromise the substance of the patient's medical care during this visit.
[2024-08-12] MEDS: ALBUTEROL/IPRATROPIUM (Duoneb) RT SOL 3 ML NEBU INH (15:59)
[2024-08-12] MEDS: HALOPERIDOL LACT INJ 5 MG/ML VIAL IV (16:41)
[2024-08-12 17:41] LABS: Amphetamine/Methamp Scrn,U Negative (Negative); Barbiturate Screen,Urine Negative (Negative); Benzodiazepines Screen,Urine Negative (Negative); Benzoylecgonine Screen, Ur Negative (Negative); Fentanyl Screen,Urine Negative (Negative); Opiate Screen,Urine Negative (Negative); THC Screen,Urine Negative (Negative)
[2024-08-12 17:48] LABS: Collection Type, Urine Clean Catch
[2024-08-12] MEDS: cefTRIAXone 1,000 MG in SODIUM CHLORIDE 0.9% (Popper) 50 ML 100 MG IV (17:53)
[2024-08-12] MEDS: metroNIDAZOLE/NS 500 MG IVPB 500 MG/100 ML BAG 200 MG IV (17:53)
[2024-08-12] MEDS: DILTIAZEM CD 180 MG CAPCR PO (17:54)
[2024-08-12] MEDS: PANTOPRAZOLE INJ 40 MG VIAL IV (17:54)
[2024-08-12] MEDS: TAMSULOSIN HCL 0.4 MG CAPSULE PO (17:54)
[2024-08-12 18:45] LABS: Bilirubin,Urine Negative (Negative); Blood,Urine Negative (Negative); Clarity,Urine Clear (Clear/Hazy); Color,Urine Yellow (Lt Yel-Yel); Glucose, Urine Trace (Negative); Ketones,Urine Negative (Negative); Leukocyte Esterase,Urine Negative (Negative); Nitrite,Urine Negative (Negative); Protein,Urine Trace (Neg - Trace); RBC,Urine < 1 /hpf (0-3); Specific Gravity,Urine 1.029 (1.001-1.035); Squamous Epithelial Cell,Urine < 1 /hpf (0-5); Urobilinogen,Urine Negative mg/dL (0.0-1.0); WBC,Urine 1 /hpf (0-5)
--- NOTE | 2024-08-12 19:24 | PC.NURSE ---
Contacted hospitalist and spoke to Dr. Pinto regarding patient. Per MD, bladder scan patient before inerting a in and out cath and if the results are more than 500, notify him regarding the results.
[2024-08-12 19:41] LABS: Lactate (Lactic Acid) 3.5 mMol/L (0.4-2.0)
[2024-08-12] MEDS: carBAMazepine 100 MG CHEW 200 MG PO (21:01)
[2024-08-12] MEDS: levETIRAcetam 250 MG TABLET 500 MG PO (21:01)
[2024-08-12] MEDS: APIXABAN 2.5 MG TABLET PO (21:01)
[2024-08-12 22:36] LABS: Reflex Lactate? Y
[2024-08-12 23:12] LABS: Lactic Acid, 3 HR 1.1 mMol/L (0.4-2.0)
[2024-08-13] VITALS (12 sets, daily range): BP systolic 111–155; BP diastolic 61–85; PULSE 66–94; RESP 17–96; TEMP 36.1–36.4; O2SAT 94–97; BMI 37.4; BMI 12.0
--- NOTE | 2024-08-13 | XR_ITS ---
Examination: MRI abdomen with intravenous contrast. MRI abdomen without intravenous contrast. Date and time of exam: August 13, 2024 1658 hrs. Comparison January 01, 2019 Indications: CT abdomen August 12, 2024 septated low-density mass irregular margins pancreatic head, 4.3 x 3.2 cm which is Technique: Multiple axial, sagittal and coronal sections of the abdomen obtained. Transverse images, TR 6020, TE 107. T1 weighted transverse images, TR 582, TE 9.5. T2-weighted sagittal images, TR 4000, TE 105. T2-weighted sagittal images, TR 4000, TE 5. Coronal images, TR 4210, TE 107. Axial and coronal images are obtained post 19 cc intravenous injection, gadolinium. Findings: Multiple cystic areas in the anterior liver, the largest cystic mass 17 mm Complex cystic mass in the pancreatic head and body at least 8 8 x 4.2 cm This mass shows subtle irregular enhancement on the postcontrast images No abdominal lymphadenopathy No ascites No common hepatic or common bile duct stones Spleen is not enlarged Impression: Complex cystic mass in the pancreatic head and body This mass is amenable to ultrasound-guided fine-needle aspiration for assessment of malignant cytology
[2024-08-13] MEDS: metroNIDAZOLE/NS 500 MG IVPB 500 MG/100 ML BAG 200 MG IV ×3 (05:27→22:54)
[2024-08-13 05:55] LABS: Basophils % (Auto) 0 % (0-2.5); Eosinophils # (Auto) 0.4 Thou/mm3 (0.0-0.5); Eosinophils % (Auto) 4 % (0-10); Hematocrit 31.2 % (36.0-46.0); Hemoglobin 10.8 g/dL (12.0-16.0); Immature Granulocytes % (Auto) 0 % (0-0); Immature Granulocytes Auto 0.04 Thou/mm3 (0.00-0.00); Lymphocytes # (Auto) 0.9 Thou/mm3 (1.0-4.8); Lymphocytes % (Auto) 9 % (10-50); Mean Corpuscular HGB Conc 34.6 g/dl (31.0-37.0); Mean Corpuscular Hemoglobin 31.7 pg (25.0-35.0); Mean Corpuscular Volume 92 fL (80-100); Monocytes # (Auto) 1.1 Thou/mm3 (0.0-0.8); Monocytes % (Auto) 10 % (0-12); Neutrophils # (Auto) 8.3 Thou/mm3 (1.8-7.7); Neutrophils % (Auto) 77 % (37-80); Nucleated Red Blood Cell % 0 /100 WBC (0); Platelet Count 190 Thou/mm3 (140-440); Red Blood Count 3.41 Miln/mm3 (4.00-5.20); White Blood Count 10.7 Thou/mm3 (3.6-11.0)
[2024-08-13 06:28] LABS: Alanine Aminotransferase 12 U/L (10-49); Albumin, Serum 3.4 gm/dL (3.4-4.8); Albumin/Globulin Ratio 1.6 (1.2-2.2); Alkaline Phosphatase 106 U/L (46-116); Anion Gap 9 (7-16); Aspartate Amino Transferase 11 U/L (0-34); BUN/Creatinine Ratio 50 Ratio (12-20); Bilirubin,Total 0.3 mg/dL (0.3-1.2); Blood Urea Nitrogen 15 mg/dL (9-23); Calcium 8.6 mg/dL (8.3-10.6); Calcium (Corrected) 9.1 mg/dL (8.5-10.1); Carbon Dioxide 26.1 mMol/L (20.0-31.0); Chloride 102 mMol/L (98-107); Creatinine (Component) 0.3 mg/dL (0.6-1.3); Estimated Creatinine Clearance 143.4 mL/min (>60); Globulin 2.1 gm/dL (2.3-3.5); Glucose 114 mg/dL (74-106); Magnesium 2.2 mg/dL (1.6-2.6); Osmolality,Calculated 275 (275-295); Potassium 3.4 mMol/L (3.4-5.1); Sodium 137 mMol/L (136-145); Thyroid Stimulating Hormone 2.24 uIU/mL (0.55-4.78); Total Protein 5.5 gm/dL (5.7-8.2); eGFR > 60 See Note
--- NOTE | 2024-08-13 08:28 | ECHO_ITS ---
Transthoracic Echo Report Ht (in): 54 Wt (lb): 155 Exam Location: Echo Lab Status: Inpatient Log Hooker: JILL Castro^^^^ Indications: Procedure Performed: BP: 134 / 73 HR: 85 Technical Quality: Very technically difficult study MEASUREMENTS (Male / Female) Normal Values 2D ECHO LV Diastolic Diameter PLAX 4.6 cm 4.2 - 5.9 / 3.9 - 5.3 cm LV Systolic Diameter PLAX 3.1 cm IVS Diastolic Thickness 1.0 cm 0.6 - 1.0 / 0.6 - 0.9 cm LVPW Diastolic Thickness 0.9 cm 0.6 - 1.0 / 0.6 - 0.9 cm LV Relative Wall Thickness 0.4 LVOT Diameter 2.0 cm Aortic Root Diameter 3.1 cm LA Systolic Diameter LX 3.0 cm 3.0 - 4.0 / 2.7 - 3.8 cm LV Ejection Fraction MOD BP 64.7 % >= 55 % LV Cardiac Index MOD BP 2144.4 cm?/min?m? LV Ejection Fraction MOD 4C 62.5 % LV Cardiac Index MOD 4C 2407.4 cm?/min?m? LV Ejection Fraction 4C AL 63.2 % LV Cardiac Index 4C AL 2511.4 cm?/min?m? LV Ejection Fraction MOD 2C 66.1 % LV Cardiac Index MOD 2C 1810.6 cm?/min?m? LV Ejection Fraction 2C AL 67.6 % LV Cardiac Index 2C AL 1884.8 cm?/min?m? LA Volume Index 16.1 cm?/m? 16 - 28 cm?/m? Ascending Aorta Diameter 3.7 cm DOPPLER AV Peak Velocity 153.0 cm/s AV Peak Gradient 9.4 mmHg AV Mean Gradient 5.0 mmHg AV Velocity Time Integral 32.1 cm LVOT Peak Velocity 135.0 cm/s LVOT Peak Gradient 7.3 mmHg LVOT Velocity Time Integral 22.4 cm LVOT Cardiac Index 3559.0 cm?/min?m? AV Area Cont Eq vti 2.2 cm? AV Area Cont Eq pk 2.8 cm? TR Peak Velocity 251.0 cm/s TR Peak Gradient 25.2 mmHg FINDINGS Left Ventricle Normal left ventricular size, wall thickness, systolic function with no obvious regional wall motion abnormalities. Normal left ventricular diastolic filling pattern for age. The ejection fraction is visually estimated at 55-60 %. Right Ventricle The right ventricle is normal in size and systolic function. The estimated right ventricular systolic pressure, 25 mmHg. Left Atrium The left atrium is normal by two-dimensional, color flow and Doppler imaging with no structural abnormalities, no thrombus formation present. Right Atrium The right atrium is normal by two-dimensional imaging, color flow and Doppler imaging with no structural abnormalities, no thrombus formation present. Atrial Septum The interatrial septum appears normal with no evidence of a shunt. Aorta The aorta is normal by two-dimensional, color flow and Doppler interrogation. Mitral Valve Structurally normal mitral valve. Aortic Valve The aortic valve is trileaflet and normal to two-dimensional, color flow and Doppler interrogation. Tricuspid Valve There is mild tricuspid valve regurgitation. Pulmonic Valve The pulmonic valve is not well visualized. Vessels The pulmonary artery appears normal. The inferior vena cava pulmonary and hepatic veins appear normal. Pericardium The pericardium is normal by two-dimensional imaging. There is no significant pericardial effusion. CONCLUSIONS Indication: CHF Poor quality images. Overall suboptimal study Normal LV size and function. Estimated LVEF 55 to 60%. Diastolic function indeterminate Normal RV size and function. Mild TR. Mild aortic valve sclerosis without stenosis Wade Walker (Electronically Signed) Final Date: 14 August 2024 05:00
[2024-08-13 08:52] LABS: AFP Non-Pregnant < 0.00 ng/mL (<8.10)
[2024-08-13] MEDS: levETIRAcetam 250 MG TABLET 500 MG PO ×2 (09:37→22:53)
[2024-08-13] MEDS: carBAMazepine 100 MG CHEW 200 MG PO ×2 (09:37→22:54)
[2024-08-13] MEDS: APIXABAN 2.5 MG TABLET PO ×2 (09:37→22:53)
[2024-08-13] MEDS: TAMSULOSIN HCL 0.4 MG CAPSULE PO (09:37)
[2024-08-13] MEDS: PANTOPRAZOLE INJ 40 MG VIAL IV (09:38)
[2024-08-13] MEDS: cefTRIAXone 1,000 MG in SODIUM CHLORIDE 0.9% (Popper) 50 ML 100 MG IV (09:38)
[2024-08-13] MEDS: LACTULOSE SYRUP 20 GM/30 ML UDC PO (09:38)
[2024-08-13] MEDS: DILTIAZEM CD 180 MG CAPCR PO (09:38)
[2024-08-13] MEDS: DOCUSATE SOD 100 MG CAPSULE PO (09:39)
[2024-08-13] MEDS: METOPROLOL SUCCINATE XL 25 MG TABCR 50 MG PO (09:39)
--- NOTE | 2024-08-13 12:00 | PC.NURSE ---
Bladder scan done, 250 ml in bladder.
--- NOTE | 2024-08-13 12:08 | PC.SS ---
Patient is alert. She was admitted for syncopal episodes and hypotension. Patient has Cerebral Palsy and devel. delayed. She is bedbound and has hx: seizures. SS confirmed patient resides at [facility] and has 24 hour care. Patient is not conserved per CV. However, they make all healthcare decisions. D/c plan is to return home. PCP: Dr. Dickson @ [facility]. [place] [facility] [place] for further history.
--- NOTE | 2024-08-13 12:25 | PD.ONCCONS ---
HPI Data of Consult Requesting Physician: Blayne Funk DO Primary Care Provider: Solomon Dickson MD Consult Narrative Reason for consult: Suspected pancreatic malignancy History of present illness: 69-year-old development delay cerebral palsy bedbound since 2020 admitted with pelvic abdominal pain. CT chest abdomen pelvis 08/12/2024 reveals septated low-density mass irregular margins pancreatic head. Also noted 4 mm right thyroid nodule mild bilateral hilar lymphadenopathy cholelithiasis. WBC elevated 21.1 LFTs not elevated lactic acid 3.5 which has since come down to 1.1 within several hours. CEA 2.0 CA 19?9 pending. Patient now referred for oncological consultation. cc:: cc: Blayne Funk DO Past Medical History Social History SOCIAL: Lives in a assisted fdc nondrinker non smoker Past Medical History Comments PMH COMMENT: Development delay cerebral palsy history of seizures bedbound. On Eliquis for DVT prophylaxis. Hypertension Meds Home Medications and Allergies Home Medications ?Medication ?Instructions ?Recorded ?Confirmed ?Type carbamazepine 200 mg tablet 200 mg PO BID \ days ##0 04/04/09 12/31/23 History (Tegretol) furosemide 40 mg tablet (Lasix) 20 mg PO QAM ##0 04/04/09 12/31/23 History simvastatin 20 mg tablet 20 mg PO QDAY ##0 04/04/09 12/31/23 History docusate sodium 100 mg capsule 100 mg PO BID ##0 06/05/17 12/31/23 History levetiracetam 500 mg tablet 500 mg PO BID Seizures ##0 06/05/17 12/31/23 History potassium chloride 8 mEq 8 PO QAM 02/23/20 04/21/20 History tablet,extended release acetaminophen 325 mg tablet 650 mg PO Q4H PRN pain/fever 04/21/20 12/31/23 History bisacodyl 10 mg rectal suppository 10 mg NV Q8H PRN Constipation 04/21/20 12/31/23 History calcium carbonate 600 mg PO BID 04/21/20 12/31/23 History cholecalciferol (vitamin D3) 10 400 unit PO BID 04/21/20 12/31/23 History mcg (400 unit) tablet (Vitamin D3) ferrous sulfate 325 mg (65 mg 325 mg PO QDAY 04/21/20 12/31/23 History iron) tablet ketoconazole 2 % topical cream 1 applic topical PRN PRN Rash 04/21/20 12/31/23 History lactulose 10 gram/15 mL oral 30 ml PO QDAY 04/21/20 12/31/23 History solution metoprolol succinate 25 mg 25 mg PO QDAY 12/31/23 12/31/23 History tablet,extended release 24 hr omeprazole 20 mg tablet,delayed 20 mg PO QDAY 12/31/23 12/31/23 History release Allergies Allergy/AdvReac Type Severity Reaction Status Date / Time theophylline Allergy Intermediate unknown Verified 04/21/20 19:56 promethazine Allergy Unknown UNKNOWN Verified 04/17/17 11:12 amoxicillin Allergy Verified 04/21/20 19:56 ciprofloxacin (From Cipro) Allergy Verified 04/21/20 19:56 Exam Vital Signs Temp Pulse Resp BP Pulse Ox O2 Del Method O2 Flow Rate 97.2 F 94 18 132/70 H 96 Room Air 8 08/13/24 11:37 08/13/24 11:37 08/13/24 11:37 08/13/24 11:37 08/13/24 11:37 08/13/24 11:37 08/12/24 10:04 Narrative Exam Appears comfortable sitting up answering basic questions Results Labs 08/13/24 04:33 08/13/24 04:33 Labs: Short CBC 08/13/24 Range/Units 04:33 WBC 10.7 D (3.6-11.0) Thou/mm3 Hgb 10.8 L D (12.0-16.0) g/dL Hct 31.2 L D (36.0-46.0) % Plt Count 190 D (140-440) Thou/mm3 BMP 08/13/24 04:33 Sodium 137 Potassium 3.4 Chloride 102 Carbon Dioxide 26.1 BUN 15 Creatinine 0.3 L Glucose 114 H Calcium 8.6 Liver Function 08/13/24 Range/Units 04:33 Total Bilirubin 0.3 (0.3-1.2) mg/dL AST 11 (0-34) U/L ALT 12 (10-49) U/L Alkaline Phosphatase 106 D (46-116) U/L Albumin 3.4 D (3.4-4.8) gm/dL Urine 08/12/24 Range/Units 17:08 Urine Color Yellow (Lt Yel-Yel) Urine Clarity Clear (Clear/Hazy) Urine pH 7.0 (5.0-7.0) Ur Specific [place] 1.029 (1.001-1.035) Urine Protein Trace (Neg - Trace) Urine Glucose (UA) Trace (Negative) ABG Interpretation ABG results: 08/12/24 09:25 VBG pH 7.38 VBG pCO2 48 VBG pO2 26 VBG Base Excess 2 Assessment and Plan Additional Assessment & Plan Additional Plan: 1. Development disabled cerebral palsy patient admitted with abdominal pain possible sepsis. Receiving antibiotics and supportive care. 2. CT scan abdomen shows irregular margins pancreatic head. CA 19?9 pending. 3. Will check MRI abdomen pancreas prepostcontrast
--- NOTE | 2024-08-13 13:51 | ESPR_ITS ---
<Statement entered by Scotty Walker MD - 08/14/24 08:55> Senior Resident Attestation: I supervised/discussed management plan with manager intern physician Dr. Sanches, and was involved in the care of this patient. I personally saw and examined the patient and discussed the assessment and plan with the entire medicine team, including my attending. I agree with the assessment and plan as documented. Patient's care was discussed with attending physician, Dr. Funk. Scotty Walker MD PGY-2. Documentation for date of: 08/13/24 Subjective Subjective Interval history: Patient examined at bedside today. No acute overnight events. Patient appears to be more awake and alert today and is responding to questions. She does not complain of any abdominal pain at this time. She has no other complaints at this time Exam Vital Signs Temp Pulse Resp BP Pulse Ox O2 Del Method O2 Flow Rate 97.2 F 75 18 132/70 H 95 Room Air 8 08/13/24 11:37 08/13/24 12:53 08/13/24 12:53 08/13/24 11:37 08/13/24 12:53 08/13/24 11:37 08/12/24 10:04 Narrative Exam General: AAOx2, poor historian, developmentally delayed, does not look at you when speaking to her, obese family, bed-bound HEENT: Dry mucous membranes, poor dentition, inward deviation of eyes bilat, Cardiovascular: S1, S2, radial pulses +2 bilat, RRR Pulmonary: + cough, + wheezing mainly in L lung GI: + tenderness to palpitation in lower abdomen, slightly distended, no guarding, rigidity, rebound tenderness or distension Extremities: No presence of trace or pitting edema in lower extremities bilaterally, dorsalis pedis pulses +2 bilaterally Neuro: AAO23, no focal motor or sensory deficits in the UE or LE bilat Psych: Slightly cooperative Objective Labs 08/13/24 04:33 08/13/24 04:33 Labs: Laboratory Results - last 24 hr 08/12/24 08/12/24 08/12/24 17:08 19:17 22:52 WBC RBC Hgb Hct MCV MCH MCHC RDW Std Deviation Plt Count Neut % (Auto) Lymph % (Auto) Andrews % (Auto) Eos % (Auto) Baso % (Auto) Neut # (Auto) Lymph # (Auto) Andrews # (Auto) Eos # (Auto) Baso # (Auto) Immature Gran # (Auto) Absolute Nucleated RBC Immature Gran % Nucleated RBC % Sodium Potassium Chloride Carbon Dioxide Anion Gap BUN Creatinine Estim Creat Clear Calc eGFR BUN/Creatinine Ratio Glucose Calculated Osmolality Lactic Acid 3.5 H 1.1 Calcium Corrected Calcium Magnesium Total Bilirubin AST ALT Alkaline Phosphatase Total Protein Albumin Globulin Albumin/Globulin Ratio Tumor Marker AFP Carcinoembryonic Ag TSH Ur Collection Type Clean Catch Urine Color Yellow Urine Clarity Clear Urine pH 7.0 Ur Specific [place] 1.029 Urine Protein Trace Urine Glucose (UA) Trace Urine Ketones Negative Urine Blood Negative Urine Nitrite Negative Urine Bilirubin Negative Urine Urobilinogen (Auto) Negative Ur Leukocyte Esterase Negative Urine RBC < 1 Urine WBC 1 Ur Squamous Epith Cells < 1 Urine Bacteria None Urine Opiates Screen Negative Urine Fentanyl Screen Negative Ur Barbiturates Screen Negative U Amphetamin/Meth Scrn Negative U Benzodiazepines Scrn Negative U Cocaine Metab Screen Negative U Marijuana (THC) Screen Negative 08/13/24 04:33 WBC 10.7 D RBC 3.41 L Hgb 10.8 L D Hct 31.2 L D MCV 92 MCH 31.7 MCHC 34.6 RDW Std Deviation 42.0 Plt Count 190 D Neut % (Auto) 77 Lymph % (Auto) 9 L Andrews % (Auto) 10 Eos % (Auto) 4 Baso % (Auto) 0 Neut # (Auto) 8.3 H Lymph # (Auto) 0.9 L Andrews # (Auto) 1.1 H Eos # (Auto) 0.4 Baso # (Auto) 0.0 Immature Gran # (Auto) 0.04 H Absolute Nucleated RBC 0.00 Immature Gran % 0 Nucleated RBC % 0 Sodium 137 Potassium 3.4 Chloride 102 Carbon Dioxide 26.1 Anion Gap 9 BUN 15 Creatinine 0.3 L Estim Creat Clear Calc 143.4 eGFR > 60 BUN/Creatinine Ratio 50 H Glucose 114 H Calculated Osmolality 275 Lactic Acid Calcium 8.6 Corrected Calcium 9.1 Magnesium 2.2 Total Bilirubin 0.3 AST 11 ALT 12 Alkaline Phosphatase 106 D Total Protein 5.5 L Albumin 3.4 D Globulin 2.1 L Albumin/Globulin Ratio 1.6 Tumor Marker AFP < 0.00 L Carcinoembryonic Ag 2.0 TSH 2.24 Ur Collection Type Urine Color Urine Clarity Urine pH Ur Specific [place] Urine Protein Urine Glucose (UA) Urine Ketones Urine Blood Urine Nitrite Urine Bilirubin Urine Urobilinogen (Auto) Ur Leukocyte Esterase Urine RBC Urine WBC Ur Squamous Epith Cells Urine Bacteria Urine Opiates Screen Urine Fentanyl Screen Ur Barbiturates Screen U Amphetamin/Meth Scrn U Benzodiazepines Scrn U Cocaine Metab Screen U Marijuana (THC) Screen ABG Interpretation ABG results: 08/12/24 09:25 VBG pH 7.38 VBG pCO2 48 VBG pO2 26 VBG Base Excess 2 Quality Measures Quality Measures sepsis Current suspected stage: ruled out Possible source: GI tract/intra- abdominal Blood cultures ordered: completed in ED Antibiotic ordered: Yes Advance care planning discussed with:: patient Assessment & Plan Assessment Current Active Medications: Generic Name Dose Route Start Last Admin Trade Name Freq PRN Reason Stop Dose Admin Acetaminophen 650 mg 08/12/24 12:59 Acetaminophen 325 Mg Tablet PO 09/11/24 12:58 Q6H PRN PAIN SCALE 1-3 (mild Acetaminophen 1,000 mg 08/12/24 14:27 Acetaminophen 500 Mg Tablet PO 09/11/24 12:58 Q6H PRN Fever >100 Albuterol 2 puff 08/12/24 13:51 Albuterol Inh 8 Gm INH 09/11/24 13:59 Q2HR PRN wheezing, SOB Protocol Albuterol/Ipratropium 3 ml 08/12/24 13:51 08/12/24 15:59 Albuterol/Ipratropium (Duoneb) Rt Luba 3 Ml Nebu INH 09/11/24 14:59 3 ml Q4HRRT PRN Administration sob/wheezing Protocol Apixaban 2.5 mg 08/12/24 21:00 08/13/24 09:37 Apixaban 2.5 Mg Tablet PO 09/11/24 20:59 2.5 mg BID BHARAT Administration Carbamazepine 200 mg 08/12/24 21:00 08/13/24 09:37 Carbamazepine 100 Mg Chew PO 09/11/24 20:59 200 mg BID BHARAT Administration Diltiazem HCl 180 mg 08/12/24 17:30 08/13/24 09:38 Diltiazem Cd 180 Mg Capcr PO 09/11/24 17:29 180 mg QDAY BHARAT Administration Docusate Sodium 100 mg 08/13/24 09:00 08/13/24 09:39 Docusate Sod 100 Mg Capsule PO 09/12/24 08:59 100 mg DAILY BHARAT Administration Protocol Furosemide 40 mg 08/12/24 17:15 08/12/24 17:44 Furosemide Inj 10 Mg/Ml 4ml Vial IVP 09/11/24 17:14 Not Given QDAY BHARAT Haloperidol Lactate 5 mg 08/12/24 17:40 Haloperidol Lact Inj 5 Mg/Ml Vial IM 09/11/24 17:39 X1 PRN AGITATION Ceftriaxone Sodium 1,000 mg/ 50 mls @ 100 mls/hr 08/12/24 16:49 08/13/24 09:38 Sodium Chloride IV 08/19/24 16:48 100 mls/hr QDAY BHARAT Administration Metronidazole 500 mg in 100 mls @ 200 mls/hr 08/12/24 16:49 08/13/24 05:27 Flagyl 500 Mg Iv IV 08/19/24 16:48 200 mls/hr Q8HR BHARAT Administration Lactulose 20 gm 08/13/24 09:00 08/13/24 09:38 Lactulose Syrup 20 Gm/30 Ml Udc PO 09/12/24 08:59 20 gm DAILY BHARAT Administration Protocol Levetiracetam 500 mg 08/12/24 21:00 08/13/24 09:37 Levetiracetam 250 Mg Tablet PO 09/11/24 20:59 500 mg BID BHARAT Administration Magnesium Hydroxide 30 ml 08/12/24 12:59 Milk Of Magnesia Susp 30 Ml Udc PO 09/11/24 12:58 QDAY PRN CONSTIPATION Protocol Metoprolol Succinate 50 mg 08/13/24 09:00 08/13/24 09:39 Metoprolol Succinate Xl 25 Mg Tabcr PO 09/12/24 08:59 50 mg DAILY BHARAT Administration Ondansetron HCl 4 mg 08/12/24 12:59 Ondansetron Inj 2 Mg/Ml Inj 2 Ml IV 09/11/24 12:58 Q6H PRN NAUSEA OR VOMITING Protocol Pantoprazole Sodium 40 mg 08/12/24 17:00 08/13/24 09:38 Pantoprazole Inj 40 Mg Vial IV 09/11/24 16:59 40 mg QDAY BHARAT Administration Sodium Chloride 3 ml 08/12/24 09:22 08/12/24 09:35 Sodium Chloride Rt Luba 0.9% 3 Ml Nebu INH 09/11/24 09:21 3 ml PRN PRN Administration SOLN Tamsulosin HCl 0.4 mg 08/12/24 17:45 08/13/24 09:37 Tamsulosin Hcl 0.4 Mg Capsule PO 09/11/24 17:44 0.4 mg QDAY BHARAT Administration Plan Assessment Emmanuelle is a 69 y/o female with PMHx of cerebral palsy, developmental delay, hypertension, seizures, bedbound since 2020 (takes Eliquis DVT prophylaxis) comes in for an evaluation of sepsis. # Sepsis, ruled out #Urinary retention #Abdominal pain qSOFA: 1 point, not high risk Source: Likely abdomen Patient did have a fever of 102 rectally, tachycardic Lactate 2.7 -> 3.3 White count of 21 Unsure why patient did not have some abdominal flexion at this time No recent surgeries No abdominal wounds visualized on physical exam Will need to further workup Patient was given meropenem in the ED Spoke with care at home, denies any recent sick contacts Patient appears to be distended from a bladder standpoint, could be contributing to abdominal pain Pending to put abx until CT is done Patient came in and found to have 2 or more SIRS criteria and was evaluated for sepsis. 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 Oncology consulted, appreciate recs ? Consider ultrasound-guided FNA #History of hypertension #Hypotension #History of hyperlipidemia Blood pressure was measured to 70 systolic at home Manager Wound Care Dr. Jennings Plan: ?Will resume home blood pressure medicines of blood pressure improves ?Will consider doing orthostatics once blood pressure improves ?Continue Lipitor 20 mg at at bedtime ?Continue home metoprolol XL 50 mg ?Continue with home Cardizem 180 CD #History of seizures Chronic Patient did not have seizure in the ED Plan: ?Continue home Keppra 500 mg twice daily by mouth ?Continue home carbamazepine 200 mg twice daily by mouth ?Seizure precautions ?Neurochecks every 4 hours #Bedbound #History of cerebral palsy #Developmental delay Patient is conserved, takes Eliquis she is mainly bedbound for DVT prophylaxis Plan: ?Will consider social worker aide referral ?Continue home Eliquis 2.5 mg twice daily #Health Maintenance Disposition: MedSurg DVT prophylaxis: Eliquis 2.5 mg BID GI prophylaxis: Protonix Diet: Cardiac CODE STATUS: Full code Patient seen and care discussed with my senior resident, Dr. Jaffe, and my attending physician, Dr. Good Sanches, PGY-1 Attending Provider Attestation/Addendum I have discussed and was present for the essential components of the history, physical examination, diagnosis, and treatment plan with the resident. I agree with the patient's care as documented by the resident and amended herein by me. Donald Funk, DO. Patient seen and evaluated this AM. No acute events overnight, vital signs stable, patient afebrile, patient continues to receive straight caths, I/O20 425/4365. Patient started on tamsulosin yesterday. Large drop in hemoglobin, 10.8 today, WBC also down trended to 10.7. Fecal occult ordered and pending, will continue ceftriaxone and Flagyl for now for possible intra-abdominal infection versus pneumonia. Oncology, Dr. Bhakta also consulted for suspicious mass on the pancreatic head, MRI ordered and pending, of note, pancreatic mass is also found in 2019 and were likely present per radiology notes in 2016 or sooner. Will compare results once imaging has resulted. Appreciate specialist recommendations. Urine and blood cultures also pending, will continue to monitor closely. Although this document has been carefully reviewed, there may still be some phonetic and other typographical errors. These errors are purely grammatical due to imperfections in the software program and should not be construed in any way to compromise the substance of the patient's medical care during this visit.
--- NOTE | 2024-08-13 15:46 | PC.NURSE ---
notified Dr. Brown [id number] that pt's occult stool was negative. Slip sent to lab and charted.
--- NOTE | 2024-08-13 18:05 | PC.NURSE ---
bladder scanned pt, 350 ml noted.
[2024-08-14] VITALS (13 sets, daily range): BP systolic 158–173; BP diastolic 78–98; PULSE 65–79; RESP 16–98; TEMP 36.1–36.6; O2SAT 94–98; BMI 37.5
--- NOTE | 2024-08-14 05:36 | PC.NURSE ---
mrsa nasal swab specimen sent to lab.
[2024-08-14] MEDS: metroNIDAZOLE/NS 500 MG IVPB 500 MG/100 ML BAG 200 MG IV ×3 (05:40→21:14)
[2024-08-14 06:57] LABS: Basophils % (Auto) 0 % (0-2.5); Eosinophils # (Auto) 0.9 Thou/mm3 (0.0-0.5); Eosinophils % (Auto) 14 % (0-10); Hematocrit 32.8 % (36.0-46.0); Hemoglobin 11.2 g/dL (12.0-16.0); Immature Granulocytes % (Auto) 0 % (0-0); Immature Granulocytes Auto 0.01 Thou/mm3 (0.00-0.00); Lymphocytes # (Auto) 1.2 Thou/mm3 (1.0-4.8); Lymphocytes % (Auto) 19 % (10-50); Mean Corpuscular HGB Conc 34.1 g/dl (31.0-37.0); Mean Corpuscular Hemoglobin 30.8 pg (25.0-35.0); Mean Corpuscular Volume 90 fL (80-100); Monocytes # (Auto) 0.7 Thou/mm3 (0.0-0.8); Monocytes % (Auto) 11 % (0-12); Neutrophils # (Auto) 3.6 Thou/mm3 (1.8-7.7); Neutrophils % (Auto) 56 % (37-80); Nucleated Red Blood Cell % 0 /100 WBC (0); Platelet Count 239 Thou/mm3 (140-440); RDW Standard Deviation 42.2 fL (36.4-46.3); Red Blood Count 3.64 Miln/mm3 (4.00-5.20); White Blood Count 6.5 Thou/mm3 (3.6-11.0)
[2024-08-14 07:20] LABS: Alanine Aminotransferase 13 U/L (10-49); Albumin, Serum 3.8 gm/dL (3.4-4.8); Albumin/Globulin Ratio 1.7 (1.2-2.2); Alkaline Phosphatase 106 U/L (46-116); Anion Gap 8 (7-16); Aspartate Amino Transferase 13 U/L (0-34); BUN/Creatinine Ratio 47 Ratio (12-20); Bilirubin,Total 0.3 mg/dL (0.3-1.2); Blood Urea Nitrogen 14 mg/dL (9-23); Calcium 8.9 mg/dL (8.3-10.6); Calcium (Corrected) 9.1 mg/dL (8.5-10.1); Carbon Dioxide 25.9 mMol/L (20.0-31.0); Chloride 101 mMol/L (98-107); Creatinine (Component) 0.3 mg/dL (0.6-1.3); Estimated Creatinine Clearance 143.8 mL/min (>60); Globulin 2.2 gm/dL (2.3-3.5); Glucose 91 mg/dL (74-106); Magnesium 1.9 mg/dL (1.6-2.6); Osmolality,Calculated 270 (275-295); Potassium 3.6 mMol/L (3.4-5.1); Sodium 135 mMol/L (136-145); eGFR > 60 See Note
[2024-08-14] MEDS: cefTRIAXone 1,000 MG in SODIUM CHLORIDE 0.9% (Popper) 50 ML 100 MG IV (09:17)
[2024-08-14] MEDS: DOCUSATE SOD 100 MG CAPSULE PO (09:20)
[2024-08-14] MEDS: APIXABAN 2.5 MG TABLET PO ×2 (09:20→21:14)
[2024-08-14] MEDS: METOPROLOL SUCCINATE XL 25 MG TABCR 50 MG PO (09:21)
[2024-08-14] MEDS: carBAMazepine 100 MG CHEW 200 MG PO ×2 (09:21→21:15)
[2024-08-14] MEDS: TAMSULOSIN HCL 0.4 MG CAPSULE PO (09:22)
[2024-08-14] MEDS: PANTOPRAZOLE INJ 40 MG VIAL IV (09:25)
[2024-08-14] MEDS: LACTULOSE SYRUP 20 GM/30 ML UDC PO (09:26)
[2024-08-14] MEDS: DILTIAZEM CD 180 MG CAPCR PO (09:27)
[2024-08-14] MEDS: ACETAMINOPHEN 325 MG TABLET 650 MG PO (09:29)
--- NOTE | 2024-08-14 10:55 | PD.RESPRO ---
Documentation for date of: 08/14/24 Subjective Subjective Interval history: Patient seen at bedside. Overnight, bladder scan said to have shown, 500 cc of urine in a straight catheter was used to drain bladder. Evaluated by oncologist Dr. Bhakta yesterday, recommended to follow pancreatic mass with MRI. Abdominal MRI was done and showed a complex cystic mass in the pancreatic head and body. To follow-up with radiology/oncology on mass. Echocardiogram was done and showed normal LV size and function ejection fraction 55 to 60%. Otherwise, patient is doing well and has no complaints at this time. Exam Vital Signs Temp Pulse Resp BP Pulse Ox O2 Del Method O2 Flow Rate 97.0 F 70 19 167/89 H 95 Room Air 8 08/14/24 07:38 08/14/24 09:27 08/14/24 07:38 08/14/24 09:27 08/14/24 07:38 08/14/24 07:38 08/13/24 16:00 Narrative Exam GENERAL: Developmentally delayed, answers simple questions and follows simple commands NEURO: Able to move all extremities, no focal neurologic deficits HEENT: Moist mucosa. Eyes open, symmetrical, & clear CARDIO: No chest pain on palpation. Heart RRR, no obvious murmurs PULM: No noted coughing/dyspnea. Lungs CTA B/L GI: Abdomen soft, nondistended, no pain on palpation. BSx4 URO/CO TEACHER:: No further abnormalities noted. SKIN/MSK/EXT: No wounds/rashes/edema/amputations, no pain on palpation. Pedal pulses present B/L Objective Labs 08/14/24 05:05 08/14/24 05:05 Labs: Laboratory Results - last 24 hr 08/14/24 05:05 WBC 6.5 RBC 3.64 L Hgb 11.2 L Hct 32.8 L MCV 90 MCH 30.8 MCHC 34.1 RDW Std Deviation 42.2 Plt Count 239 D Neut % (Auto) 56 Lymph % (Auto) 19 [place] % (Auto) 11 Eos % (Auto) 14 H Baso % (Auto) 0 Neut # (Auto) 3.6 Lymph # (Auto) 1.2 [place] # (Auto) 0.7 Eos # (Auto) 0.9 H Baso # (Auto) 0.0 Immature Gran # (Auto) 0.01 H Absolute Nucleated RBC 0.00 Immature Gran % 0 Nucleated RBC % 0 Sodium 135 L Potassium 3.6 Chloride 101 Carbon Dioxide 25.9 Anion Gap 8 BUN 14 Creatinine 0.3 L Estim Creat Clear Calc 143.8 eGFR > 60 BUN/Creatinine Ratio 47 H Glucose 91 Calculated Osmolality 270 L Calcium 8.9 Corrected Calcium 9.1 Magnesium 1.9 Total Bilirubin 0.3 AST 13 ALT 13 Alkaline Phosphatase 106 Total Protein 6.0 Albumin 3.8 Globulin 2.2 L Albumin/Globulin Ratio 1.7 ABG Interpretation ABG results: 08/12/24 09:25 VBG pH 7.38 VBG pCO2 48 VBG pO2 26 VBG Base Excess 2 Quality Measures Quality Measures sepsis Current suspected stage: ruled out Possible source: GI tract/intra-abdominal Blood cultures ordered: completed in ED Antibiotic ordered: No Advance care planning discussed with:: other Assessment & Plan Assessment Current Active Medications: Generic Name Dose Route Start Last Admin Trade Name Freq PRN Reason Stop Dose Admin Acetaminophen 650 mg 08/12/24 12:59 08/14/24 09:29 Acetaminophen 325 Mg Tablet PO 09/11/24 12:58 650 mg Q6H PRN Administration PAIN SCALE 1-3 (mild Acetaminophen 1,000 mg 08/12/24 14:27 Acetaminophen 500 Mg Tablet PO 09/11/24 12:58 Q6H PRN Fever >100 Albuterol 2 puff 08/12/24 13:51 Albuterol Inh 8 Gm INH 09/11/24 13:59 Q2HR PRN wheezing, SOB Protocol Albuterol/Ipratropium 3 ml 08/12/24 13:51 08/12/24 15:59 Albuterol/Ipratropium (Duoneb) Rt Luba 3 Ml Nebu INH 09/11/24 14:59 3 ml Q4HRRT PRN Administration sob/wheezing Protocol Apixaban 2.5 mg 08/12/24 21:00 08/14/24 09:20 Apixaban 2.5 Mg Tablet PO 09/11/24 20:59 2.5 mg BID BHARAT Administration Carbamazepine 200 mg 08/12/24 21:00 08/14/24 09:21 Carbamazepine 100 Mg Chew PO 09/11/24 20:59 200 mg BID BHARAT Administration Diltiazem HCl 180 mg 08/12/24 17:30 08/14/24 09:27 Diltiazem Cd 180 Mg Capcr PO 09/11/24 17:29 180 mg QDAY BHARAT Administration Docusate Sodium 100 mg 08/13/24 09:00 08/14/24 09:20 Docusate Sod 100 Mg Capsule PO 09/12/24 08:59 100 mg DAILY BHARAT Administration Protocol Furosemide 40 mg 08/12/24 17:15 08/12/24 17:44 Furosemide Inj 10 Mg/Ml 4ml Vial IVP 09/11/24 17:14 Not Given QDAY BHARAT Haloperidol Lactate 5 mg 08/12/24 17:40 Haloperidol Lact Inj 5 Mg/Ml Vial IM 09/11/24 17:39 X1 PRN AGITATION Ceftriaxone Sodium 1,000 mg/ 50 mls @ 100 mls/hr 08/12/24 16:49 08/14/24 09:17 Sodium Chloride IV 08/19/24 16:48 100 mls/hr QDAY BHARAT Administration Metronidazole 500 mg in 100 mls @ 200 mls/hr 08/12/24 16:49 08/14/24 05:40 Flagyl 500 Mg Iv IV 08/19/24 16:48 200 mls/hr Q8HR BHARAT Administration Lactulose 20 gm 08/13/24 09:00 08/14/24 09:26 Lactulose Syrup 20 Gm/30 Ml Udc PO 09/12/24 08:59 20 gm DAILY BHARAT Administration Protocol Levetiracetam 1,500 mg 08/14/24 21:00 Levetiracetam 250 Mg Tablet PO 09/13/24 20:59 BID BHARAT Magnesium Hydroxide 30 ml 08/12/24 12:59 Milk Of Magnesia Susp 30 Ml Udc PO 09/11/24 12:58 QDAY PRN CONSTIPATION Protocol Metoprolol Succinate 50 mg 08/13/24 09:00 08/14/24 09:21 Metoprolol Succinate Xl 25 Mg Tabcr PO 09/12/24 08:59 50 mg DAILY BHARAT Administration Ondansetron HCl 4 mg 08/12/24 12:59 Ondansetron Inj 2 Mg/Ml Inj 2 Ml IV 09/11/24 12:58 Q6H PRN NAUSEA OR VOMITING Protocol Pantoprazole Sodium 40 mg 08/12/24 17:00 08/14/24 09:25 Pantoprazole Inj 40 Mg Vial IV 09/11/24 16:59 40 mg QDAY BHARAT Administration Sodium Chloride 3 ml 08/12/24 09:22 08/12/24 09:35 Sodium Chloride Rt Luba 0.9% 3 Ml Nebu INH 09/11/24 09:21 3 ml PRN PRN Administration SOLN Tamsulosin HCl 0.4 mg 08/12/24 17:45 08/14/24 09:22 Tamsulosin Hcl 0.4 Mg Capsule PO 09/11/24 17:44 0.4 mg QDAY BHARAT Administration Plan Summary: The patient is a 69 y/o female with PMHx of cerebral palsy, developmental delay, hypertension, seizures, bedbound since 2020 (takes Eliquis DVT prophylaxis) comes in for an evaluation of sepsis. #Sepsis, ruled out #Urinary retention #Abdominal pain On admission, Patient did have a fever of 102 taken rectally, she was also tachycardic. Significant labs showed Lactate 2.7 -> 3.3 with a WBC of 21.1 No recent surgeries No abdominal wounds visualized on physical exam Will need to further workup Patient was given meropenem in the ED Spoke with care at home, denies any recent sick contacts .Patient appears to be distended from a bladder standpoint, could be contributing to abdominal pain Patient came in and found to have 2 or more SIRS criteria and was evaluated for sepsis. 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 Unlikely to require biopsy at this time. Plan: ? Oncology consulted, appreciate recs #History of hypertension #Hypotension #History of hyperlipidemia Blood pressure was measured to 70 systolic at home Medical Administrative Specialist Dr. Jennings 08/14: Blood pressure currently elevated, in the 160s, currently holding off on additional antihypertensives will continue metoprolol and Cardizem. Plan: ?Continue Lipitor 20 mg at at bedtime ?Continue home metoprolol XL 50 mg ?Continue with home Cardizem 180 CD #History of seizures Chronic Patient did not have seizure in the ED Plan: ?Continue home Keppra 500 mg twice daily by mouth ?Continue home carbamazepine 200 mg twice daily by mouth ?Seizure precautions ?Neurochecks every 4 hours #Bedbound #History of cerebral palsy #Developmental delay Patient is conserved, takes Eliquis she is mainly bedbound for DVT prophylaxis Plan: ?Will consider certified social workers in health care referral ?Continue home Eliquis 2.5 mg twice daily #Health Maintenance Disposition: MedSurg DVT prophylaxis: Eliquis 2.5 mg BID GI prophylaxis: Protonix Diet: Cardiac CODE STATUS: Full code Case was discussed with Dr Jaffe PGY-2 and attending physician, Dr Good Humphrey MD PGY-1 Disclaimer: This note was dictated by speech recognition. Minor errors in mechanical expert may be present due to voice recognition software. Attending Provider Attestation/Addendum I have discussed and was present for the essential components of the history, physical examination, diagnosis, and treatment plan with the resident. I agree with the patient's care as documented by the resident and amended herein by me. Donald Funk, DO. Patient seen and evaluated this AM. No acute events overnight, vital signs stable, patient afebrile this morning. I/O20 590/575. 1 BM recorded. Significant labs include a hemoglobin stable 11.2, BMP largely unremarkable. Patient appears to be at baseline. Echo performed on 08/13 was a suboptimal study however normal LV size and function, EF 50 to 55%. The abdominal MRI did demonstrate a complex cystic mass in the pancreatic head and body however this was also demonstrated in images from 2019 in reference back to 2016. It does appear as if the mass is grown, and FNA has been ordered for the patient, oncology consulted, Dr. Bhakta. Cancer markers were ordered on admission, CEA within normal limits, CA 19-9/pending, AFP negative. Blood cultures demonstrating NGTD, urine cultures also NGTD. The patient is full code is verified with her facility. The patient did come in with urinary retention, her bladder was significantly distended as demonstrated on imaging. The patient would not tolerate a Ca catheter, several attempts were made to place 1 however she has been tolerating straight caths which has been ordered every 6 hours. We also started the patient on tamsulosin which may help a bit. I do think the patient may need straight catheterizations [facility], we did call today to find out if they could accommodate straight cathing going forward and they would speak to their physician. The social work will follow-up with that query however we have not heard anything back yet. The patient may need SNF placement until she can follow-up with an outpatient urologist. Will continue to monitor closely while she is here. Although this document has been carefully reviewed, there may still be some phonetic and other typographical errors. These errors are purely grammatical due to imperfections in the software program and should not be construed in any way to compromise the substance of the patient's medical care during this visit.
--- NOTE | 2024-08-14 16:14 | PD.ONCPROG ---
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 This mass showed irregular enhancement on the postcontrast images with no abdominal lymphadenopathy ascites. CA 19?9 pending Exam Vital Signs Temp Pulse Resp BP Pulse Ox O2 Del Method O2 Flow Rate 96.9 F 65 17 158/96 H 94 L Room Air 8 08/14/24 15:26 08/14/24 15:26 08/14/24 15:26 08/14/24 15:26 08/14/24 15:26 08/14/24 15:26 08/14/24 15:26 Objective Objective Narrative Objective Narrative: Appears comfortable this p.m. Labs 08/14/24 05:05 08/14/24 05:05 Labs: Laboratory Results - last 24 hr 08/14/24 05:05 WBC 6.5 RBC 3.64 L Hgb 11.2 L Hct 32.8 L MCV 90 MCH 30.8 MCHC 34.1 RDW Std Deviation 42.2 Plt Count 239 D Neut % (Auto) 56 Lymph % (Auto) 19 [place] % (Auto) 11 Eos % (Auto) 14 H Baso % (Auto) 0 Neut # (Auto) 3.6 Lymph # (Auto) 1.2 [place] # (Auto) 0.7 Eos # (Auto) 0.9 H Baso # (Auto) 0.0 Immature Gran # (Auto) 0.01 H Absolute Nucleated RBC 0.00 Immature Gran % 0 Nucleated RBC % 0 Sodium 135 L Potassium 3.6 Chloride 101 Carbon Dioxide 25.9 Anion Gap 8 BUN 14 Creatinine 0.3 L Estim Creat Clear Calc 143.8 eGFR > 60 BUN/Creatinine Ratio 47 H Glucose 91 Calculated Osmolality 270 L Calcium 8.9 Corrected Calcium 9.1 Magnesium 1.9 Total Bilirubin 0.3 AST 13 ALT 13 Alkaline Phosphatase 106 Total Protein 6.0 Albumin 3.8 Globulin 2.2 L Albumin/Globulin Ratio 1.7 ABG Interpretation ABG results: 08/12/24 09:25 VBG pH 7.38 VBG pCO2 48 VBG pO2 26 VBG Base Excess 2 Assessment & Plan A&P Narrative 1. Development disabled cerebral palsy patient admitted with abdominal pain urinary tension possible sepsis. Receiving antibiotics and supportive care. 2. MRI of abdomen shows a large and growing pancreatic mass compared to the one done several years ago. 3. Ultrasound-guided FNA ordered since this appears significantly larger than previous, clearly not the typical malignancy at the site but still may cause increasing symptoms with further growth despite the indolent nature. Time Spent With Patient Time: Total time spent is greater than 50% in coordination of care (as documented) at patient's floor/unit and/or counseling patient:
[2024-08-14] MEDS: levETIRAcetam 250 MG TABLET 1500 MG PO (21:14)
[2024-08-15] VITALS (16 sets, daily range): BP systolic 143–170; BP diastolic 75–91; PULSE 61–77; RESP 16–98; TEMP 36.2–36.5; O2SAT 95–99; BMI 38.0
--- NOTE | 2024-08-15 00:15 | PC.NURSE ---
Notify MD of pt's BP. MD will check chart. No orders made at this time.
[2024-08-15] MEDS: hydrALAZINE HCL 25 MG TABLET PO ×4 (00:54→21:09)
[2024-08-15] MEDS: metroNIDAZOLE/NS 500 MG IVPB 500 MG/100 ML BAG 200 MG IV ×3 (05:13→21:09)
[2024-08-15 06:06] LABS: Basophils % (Auto) 0 % (0-2.5); Eosinophils # (Auto) 0.8 Thou/mm3 (0.0-0.5); Eosinophils % (Auto) 15 % (0-10); Hematocrit 34.9 % (36.0-46.0); Immature Granulocytes % (Auto) 0 % (0-0); Immature Granulocytes Auto 0.01 Thou/mm3 (0.00-0.00); Lymphocytes # (Auto) 1.3 Thou/mm3 (1.0-4.8); Lymphocytes % (Auto) 26 % (10-50); Mean Corpuscular HGB Conc 34.4 g/dl (31.0-37.0); Mean Corpuscular Hemoglobin 31.3 pg (25.0-35.0); Mean Corpuscular Volume 91 fL (80-100); Monocytes # (Auto) 0.5 Thou/mm3 (0.0-0.8); Monocytes % (Auto) 11 % (0-12); Neutrophils # (Auto) 2.4 Thou/mm3 (1.8-7.7); Neutrophils % (Auto) 47 % (37-80); Nucleated Red Blood Cell % 0 /100 WBC (0); Platelet Count 237 Thou/mm3 (140-440); RDW Standard Deviation 41.3 fL (36.4-46.3); Red Blood Count 3.84 Miln/mm3 (4.00-5.20)
[2024-08-15 06:31] LABS: Alanine Aminotransferase 12 U/L (10-49); Albumin, Serum 3.6 gm/dL (3.4-4.8); Albumin/Globulin Ratio 1.6 (1.2-2.2); Alkaline Phosphatase 102 U/L (46-116); Anion Gap 7 (7-16); Aspartate Amino Transferase 14 U/L (0-34); BUN/Creatinine Ratio 27 Ratio (12-20); Bilirubin,Total 0.3 mg/dL (0.3-1.2); Blood Urea Nitrogen 8 mg/dL (9-23); Calcium 8.7 mg/dL (8.3-10.6); Carbon Dioxide 26.1 mMol/L (20.0-31.0); Chloride 104 mMol/L (98-107); Creatinine (Component) 0.3 mg/dL (0.6-1.3); Estimated Creatinine Clearance 144.4 mL/min (>60); Globulin 2.3 gm/dL (2.3-3.5); Glucose 94 mg/dL (74-106); Magnesium 1.9 mg/dL (1.6-2.6); Osmolality,Calculated 272 (275-295); Potassium 3.6 mMol/L (3.4-5.1); Sodium 137 mMol/L (136-145); Total Protein 5.9 gm/dL (5.7-8.2); eGFR > 60 See Note
--- NOTE | 2024-08-15 07:05 | ESPR_ITS ---
Documentation for date of: 08/15/24 Subjective Subjective Interval history: Not overnight acute events This morning at the bedside, saturating well on room air, responding questions properly, tolerating p.o. denies any acute complaints at the moment Oncology was consulted Dr. Bhakta who recommended ultrasound-guided biopsy of pancreas, pending CA 19-9 we will continue to monitor closely. Exam Vital Signs Temp Pulse Resp BP Pulse Ox O2 Del Method O2 Flow Rate 97.3 F 72 16 168/83 H 95 Room Air 8 08/15/24 04:00 08/15/24 05:20 08/15/24 04:00 08/15/24 05:20 08/15/24 04:00 08/15/24 04:00 08/14/24 15:26 Narrative Exam General: No acute distress, developmental delay patient HEENT: NC/AT, moist mucous membranes Neck: Supple, No masses, No adenopathy, carotid pulse 2+ bilaterally without bruits, No JVD, normal range of motion. Chest: Symmetrical, atraumatic, and with equal expansion , Nontender on palpation no deformity and no crepitus. CVS: S1 and S2 present, Regular rate and rhythm, No murmurs, rubs or gallops perceived during auscultation. Lungs: Normal respiratory effort, CTAB, no wheezing, rhonchi or rales perceived during auscultation, No intercostal or subcostal retraction. Abdomen : Soft, no tenderness to palpation, no guarding ,no rebound, +BS Extremities: No edema, warm well perfused, normal tone and ROM, strength and sensation intact, cap refill less than 2, +2 dp equal bilaterally, able to move all 4 extremities spontaneously. Skin: Intact, no rashes, no lesions, no erythema or jaundice noted Neuro: Difficult to assess due to patient mentation baseline Psych: Appropriate mood and affect. Objective Labs 08/15/24 05:15 08/15/24 05:15 Labs: Laboratory Results - last 24 hr 08/14/24 08/15/24 05:05 05:15 WBC 6.5 5.0 RBC 3.64 L 3.84 L Hgb 11.2 L 12.0 Hct 32.8 L 34.9 L MCV 90 91 MCH 30.8 31.3 MCHC 34.1 34.4 RDW Std Deviation 42.2 41.3 Plt Count 239 D 237 Neut % (Auto) 56 47 Lymph % (Auto) 19 26 [place] % (Auto) 11 11 Eos % (Auto) 14 H 15 H Baso % (Auto) 0 0 Neut # (Auto) 3.6 2.4 Lymph # (Auto) 1.2 1.3 [place] # (Auto) 0.7 0.5 Eos # (Auto) 0.9 H 0.8 H Baso # (Auto) 0.0 0.0 Immature Gran # (Auto) 0.01 H 0.01 H Absolute Nucleated RBC 0.00 0.00 Immature Gran % 0 0 Nucleated RBC % 0 0 Sodium 135 L 137 Potassium 3.6 3.6 Chloride 101 104 Carbon Dioxide 25.9 26.1 Anion Gap 8 7 BUN 14 8 L Creatinine 0.3 L 0.3 L Estim Creat Clear Calc 143.8 144.4 eGFR > 60 > 60 BUN/Creatinine Ratio 47 H 27 H Glucose 91 94 Calculated Osmolality 270 L 272 L Calcium 8.9 8.7 Corrected Calcium 9.1 9.0 Magnesium 1.9 1.9 Total Bilirubin 0.3 0.3 AST 13 14 ALT 13 12 Alkaline Phosphatase 106 102 Total Protein 6.0 5.9 Albumin 3.8 3.6 Globulin 2.2 L 2.3 Albumin/Globulin Ratio 1.7 1.6 ABG Interpretation ABG results: 08/12/24 09:25 VBG pH 7.38 VBG pCO2 48 VBG pO2 26 VBG Base Excess 2 Quality Measures Quality Measures sepsis Current suspected stage: ruled out Possible source: GI tract/intra- abdominal Blood cultures ordered: completed in ED Antibiotic ordered: No Advance care planning discussed with:: legal surragate Assessment & Plan Assessment Current Active Medications: Generic Name Dose Route Start Last Admin Trade Name Freq PRN Reason Stop Dose Admin Acetaminophen 650 mg 08/12/24 12:59 08/14/24 09:29 Acetaminophen 325 Mg Tablet PO 09/11/24 12:58 650 mg Q6H PRN Administration PAIN SCALE 1-3 (mild Acetaminophen 1,000 mg 08/12/24 14:27 Acetaminophen 500 Mg Tablet PO 09/11/24 12:58 Q6H PRN Fever >100 Albuterol 2 puff 08/12/24 13:51 Albuterol Inh 8 Gm INH 09/11/24 13:59 Q2HR PRN wheezing, SOB Protocol Albuterol/Ipratropium 3 ml 08/12/24 13:51 08/12/24 15:59 Albuterol/Ipratropium (Duoneb) Rt [place] 3 Ml Nebu INH 09/11/24 14:59 3 ml Q4HRRT PRN Administration sob/wheezing Protocol Apixaban 2.5 mg 08/12/24 21:00 08/14/24 21:14 Apixaban 2.5 Mg Tablet PO 09/11/24 20:59 2.5 mg BID BHARAT Administration Carbamazepine 200 mg 08/12/24 21:00 08/14/24 21:15 Carbamazepine 100 Mg Chew PO 09/11/24 20:59 200 mg BID BHARAT Administration Diltiazem HCl 180 mg 08/12/24 17:30 08/14/24 09:27 Diltiazem Cd 180 Mg Capcr PO 09/11/24 17:29 180 mg QDAY BHARAT Administration Docusate Sodium 100 mg 08/13/24 09:00 08/14/24 09:20 Docusate Sod 100 Mg Capsule PO 09/12/24 08:59 100 mg DAILY BHARAT Administration Protocol Furosemide 40 mg 08/12/24 17:15 08/12/24 17:44 Furosemide Inj 10 Mg/Ml 4ml Vial IVP 09/11/24 17:14 Not Given QDAY BHARAT Haloperidol Lactate 5 mg 08/12/24 17:40 Haloperidol Lact Inj 5 Mg/Ml Vial IM 09/11/24 17:39 X1 PRN AGITATION Hydralazine HCl 25 mg 08/15/24 00:30 08/15/24 05:20 Hydralazine Hcl 25 Mg Tablet PO 09/14/24 00:29 25 mg TID BHARAT Administration Ceftriaxone Sodium 1,000 mg/ 50 mls @ 100 mls/hr 08/12/24 16:49 08/14/24 09:17 Sodium Chloride IV 08/19/24 16:48 100 mls/hr QDAY BHARAT Administration Metronidazole 500 mg in 100 mls @ 200 mls/hr 08/12/24 16:49 08/15/24 05:13 Flagyl 500 Mg Iv IV 08/19/24 16:48 200 mls/hr Q8HR BHARAT Administration Lactulose 20 gm 08/13/24 09:00 08/14/24 09:26 Lactulose Syrup 20 Gm/30 Ml Udc PO 09/12/24 08:59 20 gm DAILY BHARAT Administration Protocol Levetiracetam 1,500 mg 08/14/24 21:00 08/14/24 21:14 Levetiracetam 250 Mg Tablet PO 09/13/24 20:59 1,500 mg BID BHARAT Administration Magnesium Hydroxide 30 ml 08/12/24 12:59 Milk Of Magnesia Susp 30 Ml Udc PO 09/11/24 12:58 QDAY PRN CONSTIPATION Protocol Metoprolol Succinate 50 mg 08/13/24 09:00 08/14/24 09:21 Metoprolol Succinate Xl 25 Mg Tabcr PO 09/12/24 08:59 50 mg DAILY BHARAT Administration Ondansetron HCl 4 mg 08/12/24 12:59 Ondansetron Inj 2 Mg/Ml Inj 2 Ml IV 09/11/24 12:58 Q6H PRN NAUSEA OR VOMITING Protocol Pantoprazole Sodium 40 mg 08/12/24 17:00 08/14/24 09:25 Pantoprazole Inj 40 Mg Vial IV 09/11/24 16:59 40 mg QDAY BHARAT Administration Sodium Chloride 3 ml 08/12/24 09:22 08/12/24 09:35 Sodium Chloride Rt [place] 0.9% 3 Ml Nebu INH 09/11/24 09:21 3 ml PRN PRN Administration SOLN Tamsulosin HCl 0.4 mg 08/12/24 17:45 08/14/24 09:22 Tamsulosin Hcl 0.4 Mg Capsule PO 09/11/24 17:44 0.4 mg QDAY BHARAT Administration Plan The patient is a 69 y/o female with PMHx of cerebral palsy, developmental delay, hypertension, seizures, bedbound since 2020 (takes Eliquis DVT prophylaxis) comes in for an evaluation of sepsis. #Sepsis, ruled out #Urinary retention #Abdominal pain On admission, Patient did have a fever of 102 taken rectally, she was also tachycardic. Significant labs showed Lactate 2.7 -> 3.3 with a WBC of 21.1 No recent surgeries No abdominal wounds visualized on physical exam Will need to further workup Patient was given meropenem in the ED Spoke with care at home, denies any recent sick contacts .Patient appears to be distended from a bladder standpoint, could be contributing to abdominal pain Patient came in and found to have 2 or more SIRS criteria and was evaluated for sepsis. However, based upon further work-up, sepsis was ruled out Blood and urine cultures were negative CT showed no abscesses, no renal or ureter stones at this point Plan: -Patient will likely benefit from intermittent straight cath upon discharge -Continue tamsulosin #Pancreatic mass MRI shows complex cystic mass in pancreatic head and body Will consider ultrasound-guided fine-needle aspiration for possible malignancy This was also seen on previous scans in 2019 08/14: Following up with radiology/oncology on cystic mass as this really has been present since 2019. Unlikely to require biopsy at this time. Oncology consulted who recommended ultrasound-guided biopsy of pancreas Plan: ? Pending ultrasound-guided biopsy of pancreas #History of hypertension #Hypotension #History of hyperlipidemia Blood pressure was measured to 70 systolic at home [employer] Dr. Jennings 08/14: Blood pressure currently elevated, in the 160s, currently holding off on additional antihypertensives will continue metoprolol and Cardizem. Plan: ?Continue Lipitor 20 mg at at bedtime ?Continue home metoprolol XL 50 mg ?Continue with home Cardizem 180 CD #History of seizures Chronic Patient did not have seizure in the ED Plan: ?Continue home Keppra 500 mg twice daily by mouth ?Continue home carbamazepine 200 mg twice daily by mouth ?Seizure precautions ?Neurochecks every 4 hours #Bedbound #History of cerebral palsy #Developmental delay Patient is conserved, takes Eliquis she is mainly bedbound for DVT prophylaxis Plan: ?Will consider child protective services social worker referral ?Continue home Eliquis 2.5 mg twice daily #Health Maintenance Disposition: MedSurg DVT prophylaxis: Eliquis 2.5 mg BID GI prophylaxis: Protonix Diet: Cardiac CODE STATUS: Full code Patient discussed with my attending Dr Lenora Hines MD PGY-3 Disclaimer: Despite multiple revisions, due to the dictation software being used, the document bellow may not be free of grammatical errors including phonetic/typographic errors. However, this does not deter from our commitment to providing health care in the patient's best interest in mind. Attending Provider Attestation/Addendum Patient was admitted for abdominal pain. She has enlarging pancreatic mass. Cancer markers pending. Patient is being followed with Dr. Mainor Bhakta oncologist. I discussed with and supervised the resident physician who took care of this patient. I agree with the assessment and plan as above.
[2024-08-15] MEDS: TAMSULOSIN HCL 0.4 MG CAPSULE PO (08:42)
[2024-08-15] MEDS: APIXABAN 2.5 MG TABLET PO ×2 (08:43→20:09)
[2024-08-15] MEDS: levETIRAcetam 250 MG TABLET 1500 MG PO ×2 (08:43→20:08)
[2024-08-15] MEDS: DILTIAZEM CD 180 MG CAPCR PO (08:43)
[2024-08-15] MEDS: METOPROLOL SUCCINATE XL 25 MG TABCR 50 MG PO (08:44)
[2024-08-15] MEDS: carBAMazepine 100 MG CHEW 200 MG PO ×2 (08:44→20:08)
[2024-08-15] MEDS: DOCUSATE SOD 100 MG CAPSULE PO (08:44)
[2024-08-15] MEDS: LACTULOSE SYRUP 20 GM/30 ML UDC PO (08:45)
[2024-08-15] MEDS: PANTOPRAZOLE INJ 40 MG VIAL IV (08:45)
[2024-08-15] MEDS: cefTRIAXone 1,000 MG in SODIUM CHLORIDE 0.9% (Popper) 50 ML 100 MG IV (08:45)
[2024-08-16] VITALS (16 sets, daily range): BP systolic 124–172; BP diastolic 63–89; PULSE 66–76; RESP 16–99; TEMP 36.1–36.4; O2SAT 94–99
[2024-08-16] MEDS: metroNIDAZOLE/NS 500 MG IVPB 500 MG/100 ML BAG 200 MG IV ×3 (05:23→21:08)
[2024-08-16] MEDS: hydrALAZINE HCL 25 MG TABLET PO ×3 (05:23→21:06)
[2024-08-16 05:42] LABS: Alanine Aminotransferase 18 U/L (10-49); Albumin, Serum 3.5 gm/dL (3.4-4.8); Albumin/Globulin Ratio 1.6 (1.2-2.2); Alkaline Phosphatase 103 U/L (46-116); Anion Gap 9 (7-16); Aspartate Amino Transferase 18 U/L (0-34); BUN/Creatinine Ratio 20 Ratio (12-20); Bilirubin,Total 0.4 mg/dL (0.3-1.2); Blood Urea Nitrogen 6 mg/dL (9-23); Calcium 8.6 mg/dL (8.3-10.6); Carbon Dioxide 26.2 mMol/L (20.0-31.0); Chloride 103 mMol/L (98-107); Creatinine (Component) 0.3 mg/dL (0.6-1.3); Estimated Creatinine Clearance 144.4 mL/min (>60); Globulin 2.2 gm/dL (2.3-3.5); Glucose 92 mg/dL (74-106); Osmolality,Calculated 273 (275-295); Potassium 3.4 mMol/L (3.4-5.1); Sodium 138 mMol/L (136-145); Total Protein 5.7 gm/dL (5.7-8.2); eGFR > 60 See Note
[2024-08-16 05:53] LABS: Basophils % (Auto) 1 % (0-2.5); Eosinophils # (Auto) 0.7 Thou/mm3 (0.0-0.5); Eosinophils % (Auto) 11 % (0-10); Hematocrit 35.4 % (36.0-46.0); Immature Granulocytes % (Auto) 0 % (0-0); Immature Granulocytes Auto 0.02 Thou/mm3 (0.00-0.00); Lymphocytes # (Auto) 1.4 Thou/mm3 (1.0-4.8); Lymphocytes % (Auto) 21 % (10-50); Mean Corpuscular HGB Conc 33.9 g/dl (31.0-37.0); Mean Corpuscular Hemoglobin 30.9 pg (25.0-35.0); Mean Corpuscular Volume 91 fL (80-100); Monocytes # (Auto) 0.8 Thou/mm3 (0.0-0.8); Monocytes % (Auto) 12 % (0-12); Neutrophils # (Auto) 3.6 Thou/mm3 (1.8-7.7); Neutrophils % (Auto) 55 % (37-80); Nucleated Red Blood Cell % 0 /100 WBC (0); Platelet Count 268 Thou/mm3 (140-440); Red Blood Count 3.88 Miln/mm3 (4.00-5.20); White Blood Count 6.6 Thou/mm3 (3.6-11.0)
[2024-08-16] MEDS: levETIRAcetam 250 MG TABLET 1500 MG PO ×2 (08:21→20:23)
[2024-08-16] MEDS: LACTULOSE SYRUP 20 GM/30 ML UDC PO (08:21)
[2024-08-16] MEDS: carBAMazepine 100 MG CHEW 200 MG PO ×2 (08:21→20:23)
[2024-08-16] MEDS: cefTRIAXone 1,000 MG in SODIUM CHLORIDE 0.9% (Popper) 50 ML 100 MG IV (08:22)
[2024-08-16] MEDS: APIXABAN 2.5 MG TABLET PO ×2 (08:22→20:22)
[2024-08-16] MEDS: DOCUSATE SOD 100 MG CAPSULE PO (08:22)
[2024-08-16] MEDS: DILTIAZEM CD 180 MG CAPCR PO (08:22)
[2024-08-16] MEDS: PANTOPRAZOLE INJ 40 MG VIAL IV (08:23)
[2024-08-16] MEDS: METOPROLOL SUCCINATE XL 25 MG TABCR 50 MG PO (08:23)
[2024-08-16] MEDS: TAMSULOSIN HCL 0.4 MG CAPSULE PO (08:24)
[2024-08-16] MEDS: POTASSIUM CHLORIDE 20 mEq TABCR 40 MEQ PO (09:13)
--- NOTE | 2024-08-16 10:36 | ESPR_ITS ---
Documentation for date of: 08/16/24 Subjective Subjective Interval history: Patient seen today at the bedside. No overnight events reported. Vital signs stable at this time, continues to be hypertensive, losartan 25 mg daily. labs unremarkable. Patient is pending biopsy of pancreatic mass. And CA 19-9 levels Exam Vital Signs Temp Pulse Resp BP Pulse Ox O2 Del Method O2 Flow Rate 97.0 F 70 18 172/80 H 99 Room Air 8 08/16/24 08:00 08/16/24 09:23 08/16/24 08:00 08/16/24 08:23 08/16/24 08:00 08/16/24 08:00 08/14/24 15:26 Narrative Exam Physical Exam GENERAL: NAD, AAOx3 HEENT: Moist mucosa. Eyes open, symmetrical, & clear CARDIO: Heart RRR, no obvious murmurs PULM: No noted coughing/dyspnea CTA B/L, no R/W/R GI: Abdomen soft, nondistended, no pain on palpation. BSx4 SKIN/MSK/EXT: No wounds/rashes/edema/amputations, no pain on palpation. Pedal pulses present B/L NEURO: AAOx3, no focal neuro deficits, able to move all 4 extremities Objective Labs 08/16/24 04:37 08/16/24 04:37 Labs: Laboratory Results - last 24 hr 08/16/24 04:37 WBC 6.6 RBC 3.88 L Hgb 12.0 Hct 35.4 L MCV 91 MCH 30.9 MCHC 33.9 RDW Std Deviation 42.0 Plt Count 268 D Neut % (Auto) 55 Lymph % (Auto) 21 [place] % (Auto) 12 Eos % (Auto) 11 H Baso % (Auto) 1 Neut # (Auto) 3.6 Lymph # (Auto) 1.4 [place] # (Auto) 0.8 Eos # (Auto) 0.7 H Baso # (Auto) 0.0 Immature Gran # (Auto) 0.02 H Absolute Nucleated RBC 0.00 Immature Gran % 0 Nucleated RBC % 0 Sodium 138 Potassium 3.4 Chloride 103 Carbon Dioxide 26.2 Anion Gap 9 BUN 6 L Creatinine 0.3 L Estim Creat Clear Calc 144.4 eGFR > 60 BUN/Creatinine Ratio 20 Glucose 92 Calculated Osmolality 273 L Calcium 8.6 Corrected Calcium 9.0 Total Bilirubin 0.4 AST 18 ALT 18 Alkaline Phosphatase 103 Total Protein 5.7 Albumin 3.5 Globulin 2.2 L Albumin/Globulin Ratio 1.6 ABG Interpretation ABG results: 08/12/24 09:25 VBG pH 7.38 VBG pCO2 48 VBG pO2 26 VBG Base Excess 2 Quality Measures Quality Measures sepsis Current suspected stage: sepsis Possible source: GI tract/intra-abdominal Blood cultures ordered: completed in ED Antibiotic ordered: Yes Advance care planning discussed with:: patient Assessment & Plan Assessment Current Active Medications: Generic Name Dose Route Start Last Admin Trade Name Freq PRN Reason Stop Dose Admin Acetaminophen 650 mg 08/12/24 12:59 08/14/24 09:29 Acetaminophen 325 Mg Tablet PO 09/11/24 12:58 650 mg Q6H PRN Administration PAIN SCALE 1-3 (mild Acetaminophen 1,000 mg 08/12/24 14:27 Acetaminophen 500 Mg Tablet PO 09/11/24 12:58 Q6H PRN Fever >100 Albuterol 2 puff 08/12/24 13:51 Albuterol Inh 8 Gm INH 09/11/24 13:59 Q2HR PRN wheezing, SOB Protocol Albuterol/Ipratropium 3 ml 08/12/24 13:51 08/12/24 15:59 Albuterol/Ipratropium (Duoneb) Rt [place] 3 Ml Nebu INH 09/11/24 14:59 3 ml Q4HRRT PRN Administration sob/wheezing Protocol Apixaban 2.5 mg 08/12/24 21:00 08/16/24 08:22 Apixaban 2.5 Mg Tablet PO 09/11/24 20:59 2.5 mg BID BHARAT Administration Carbamazepine 200 mg 08/12/24 21:00 08/16/24 08:21 Carbamazepine 100 Mg Chew PO 09/11/24 20:59 200 mg BID BHARAT Administration Diltiazem HCl 180 mg 08/12/24 17:30 08/16/24 08:22 Diltiazem Cd 180 Mg Capcr PO 09/11/24 17:29 180 mg QDAY BHARAT Administration Docusate Sodium 100 mg 08/13/24 09:00 08/16/24 08:22 Docusate Sod 100 Mg Capsule PO 09/12/24 08:59 100 mg DAILY BHARAT Administration Protocol Haloperidol Lactate 5 mg 08/12/24 17:40 Haloperidol Lact Inj 5 Mg/Ml Vial IM 09/11/24 17:39 X1 PRN AGITATION Hydralazine HCl 25 mg 08/15/24 00:30 08/16/24 05:23 Hydralazine Hcl 25 Mg Tablet PO 09/14/24 00:29 25 mg TID BHARAT Administration Ceftriaxone Sodium 1,000 mg/ 50 mls @ 100 mls/hr 08/12/24 16:49 08/16/24 08:22 Sodium Chloride IV 08/19/24 16:48 100 mls/hr QDAY BHARAT Administration Metronidazole 500 mg in 100 mls @ 200 mls/hr 08/12/24 16:49 08/16/24 05:23 Flagyl 500 Mg Iv IV 08/19/24 16:48 200 mls/hr Q8HR BHARAT Administration Lactulose 20 gm 08/13/24 09:00 08/16/24 08:21 Lactulose Syrup 20 Gm/30 Ml Udc PO 09/12/24 08:59 20 gm DAILY BHARAT Administration Protocol Levetiracetam 1,500 mg 08/14/24 21:00 08/16/24 08:21 Levetiracetam 250 Mg Tablet PO 09/13/24 20:59 1,500 mg BID BHARAT Administration Magnesium Hydroxide 30 ml 08/12/24 12:59 Milk Of Magnesia Susp 30 Ml Udc PO 09/11/24 12:58 QDAY PRN CONSTIPATION Protocol Metoprolol Succinate 50 mg 08/13/24 09:00 08/16/24 08:23 Metoprolol Succinate Xl 25 Mg Tabcr PO 09/12/24 08:59 50 mg DAILY BHARAT Administration Ondansetron HCl 4 mg 08/12/24 12:59 Ondansetron Inj 2 Mg/Ml Inj 2 Ml IV 09/11/24 12:58 Q6H PRN NAUSEA OR VOMITING Protocol Pantoprazole Sodium 40 mg 08/12/24 17:00 08/16/24 08:23 Pantoprazole Inj 40 Mg Vial IV 09/11/24 16:59 40 mg QDAY BHARAT Administration Sodium Chloride 3 ml 08/12/24 09:22 08/12/24 09:35 Sodium Chloride Rt [place] 0.9% 3 Ml Nebu INH 09/11/24 09:21 3 ml PRN PRN Administration SOLN Tamsulosin HCl 0.4 mg 08/12/24 17:45 08/16/24 08:24 Tamsulosin Hcl 0.4 Mg Capsule PO 09/11/24 17:44 0.4 mg QDAY BHARAT Administration Plan The patient is a 69 y/o female with PMHx of cerebral palsy, developmental delay, hypertension, seizures, bedbound since 2020 (takes Eliquis DVT prophylaxis) comes in for an evaluation of sepsis. #Sepsis, ruled out #Urinary retention #Abdominal pain On admission, Patient did have a fever of 102 taken rectally, she was also tachycardic. Significant labs showed Lactate 2.7 -> 3.3 with a WBC of 21.1 No recent surgeries No abdominal wounds visualized on physical exam Will need to further workup Patient was given meropenem in the ED Spoke with care at home, denies any recent sick contacts .Patient appears to be distended from a bladder standpoint, could be contributing to abdominal pain Patient came in and found to have 2 or more SIRS criteria and was evaluated for sepsis. 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 Unlikely to require biopsy at this time. Oncology consulted who recommended ultrasound-guided biopsy of pancreas ? Pending ultrasound-guided biopsy of pancreas ? Pending CA-19-9 #History of hypertension #Hypotension #History of hyperlipidemia Blood pressure was measured to 70 systolic at home Engineering Team Supervisor Dr. Jennings 08/14: Blood pressure currently elevated, in the 160s, currently holding off on additional antihypertensives will continue metoprolol and Cardizem. ?Continue Lipitor 20 mg at at bedtime ?Continue home metoprolol XL 50 mg ? Started on losartan 25 mg ?Continue with home Cardizem 180 CD #History of seizures Chronic Patient did not have seizure in the ED ?Continue home Keppra 500 mg twice daily by mouth ?Continue home carbamazepine 200 mg twice daily by mouth ?Seizure precautions ?Neurochecks every 4 hours #Bedbound #History of cerebral palsy #Developmental delay Patient is conserved, takes Eliquis she is mainly bedbound for DVT prophylaxis ?Will consider social insurance administrator referral ?Continue home Eliquis 2.5 mg twice daily Case discussed with my attending Dr. Tommy Dickson MD PGY-1 Disposition: MedSurg DVT prophylaxis: Eliquis 2.5 mg BID GI prophylaxis: Protonix Diet: Cardiac CODE STATUS: Full code Attending Provider Attestation/Addendum Patient was admitted for abdominal pain. She has enlarging pancreatic mass. Pending biopsy of pancreatic mass cancer markers pending. Patient is being followed with Dr. Mainor Bhakta oncologist. I discussed with and supervised the resident physician who took care of this patient. I agree with the assessment and plan as above.
--- NOTE | 2024-08-16 16:26 | PC.SS ---
Rounding: Pending BX
[2024-08-16] MEDS: LOSARTAN POTASSIUM 25 MG TABLET PO (16:38)
[2024-08-17] VITALS (16 sets, daily range): BP systolic 139–174; BP diastolic 68–93; PULSE 58–82; RESP 16–99; TEMP 35.9–36.3; O2SAT 92–99
[2024-08-17] MEDS: metroNIDAZOLE/NS 500 MG IVPB 500 MG/100 ML BAG 200 MG IV ×3 (05:24→21:06)
[2024-08-17] MEDS: hydrALAZINE HCL 25 MG TABLET PO ×3 (05:29→21:06)
[2024-08-17] MEDS: DILTIAZEM CD 180 MG CAPCR PO (08:04)
[2024-08-17] MEDS: levETIRAcetam 250 MG TABLET 1500 MG PO ×2 (08:04→20:21)
[2024-08-17] MEDS: TAMSULOSIN HCL 0.4 MG CAPSULE PO (08:06)
[2024-08-17] MEDS: APIXABAN 2.5 MG TABLET PO ×2 (08:06→20:21)
[2024-08-17] MEDS: LACTULOSE SYRUP 20 GM/30 ML UDC PO (08:06)
[2024-08-17] MEDS: DOCUSATE SOD 100 MG CAPSULE PO (08:06)
[2024-08-17] MEDS: LOSARTAN POTASSIUM 25 MG TABLET PO (08:06)
[2024-08-17] MEDS: METOPROLOL SUCCINATE XL 25 MG TABCR 50 MG PO (08:07)
[2024-08-17] MEDS: cefTRIAXone 1,000 MG in SODIUM CHLORIDE 0.9% (Popper) 50 ML 100 MG IV (08:07)
[2024-08-17] MEDS: PANTOPRAZOLE 40 MG TABLET PO (08:07)
[2024-08-17] MEDS: carBAMazepine 100 MG CHEW 200 MG PO ×2 (08:07→20:21)
--- NOTE | 2024-08-17 10:23 | PC.NURSE ---
Per Carline Little diesel stationary engineer at home all consents should be obtained from Dr Arango [facility] medical records auditor at [phone]. Update on todays pts status given to Carline over the phone.
[2024-08-17 10:50] LABS: Basophils % (Auto) 0 % (0-2.5); Eosinophils # (Auto) 0.6 Thou/mm3 (0.0-0.5); Eosinophils % (Auto) 6 % (0-10); Hematocrit 37.9 % (36.0-46.0); Immature Granulocytes % (Auto) 1 % (0-0); Immature Granulocytes Auto 0.05 Thou/mm3 (0.00-0.00); Lymphocytes # (Auto) 1.2 Thou/mm3 (1.0-4.8); Lymphocytes % (Auto) 14 % (10-50); Mean Corpuscular HGB Conc 34.3 g/dl (31.0-37.0); Mean Corpuscular Hemoglobin 31.4 pg (25.0-35.0); Mean Corpuscular Volume 92 fL (80-100); Monocytes # (Auto) 0.7 Thou/mm3 (0.0-0.8); Monocytes % (Auto) 8 % (0-12); Neutrophils # (Auto) 6.3 Thou/mm3 (1.8-7.7); Neutrophils % (Auto) 71 % (37-80); Nucleated Red Blood Cell % 0 /100 WBC (0); Platelet Count 286 Thou/mm3 (140-440); RDW Standard Deviation 41.8 fL (36.4-46.3); Red Blood Count 4.14 Miln/mm3 (4.00-5.20); White Blood Count 8.9 Thou/mm3 (3.6-11.0)
[2024-08-17 11:05] LABS: INR 1.2 (0.9-1.3); Partial Thromboplastin Time 29.5 Seconds (22.0-36.0); Prothrombin Time 12.8 Seconds (9.0-12.2)
[2024-08-17 11:10] LABS: Alanine Aminotransferase 42 U/L (10-49); Albumin, Serum 3.9 gm/dL (3.4-4.8); Albumin/Globulin Ratio 1.7 (1.2-2.2); Alkaline Phosphatase 120 U/L (46-116); Anion Gap 8 (7-16); Aspartate Amino Transferase 44 U/L (0-34); BUN/Creatinine Ratio 20 Ratio (12-20); Bilirubin,Total 0.3 mg/dL (0.3-1.2); Blood Urea Nitrogen 6 mg/dL (9-23); Calcium 8.8 mg/dL (8.3-10.6); Calcium (Corrected) 8.9 mg/dL (8.5-10.1); Carbon Dioxide 26.1 mMol/L (20.0-31.0); Chloride 102 mMol/L (98-107); Creatinine (Component) 0.3 mg/dL (0.6-1.3); Estimated Creatinine Clearance 145.6 mL/min (>60); Globulin 2.3 gm/dL (2.3-3.5); Glucose 85 mg/dL (74-106); Osmolality,Calculated 268 (275-295); Potassium 3.5 mMol/L (3.4-5.1); Sodium 136 mMol/L (136-145); Total Protein 6.2 gm/dL (5.7-8.2); eGFR > 60 See Note
--- NOTE | 2024-08-17 11:25 | ESPR_ITS ---
<Statement entered by Leona Loya MD - 08/17/24 16:56> Patient is a 69-year-old female with past medical history of cerebral palsy, developmental delay, hypertension, seizures, bedbound since 2020 who presented to the ED with urinary retention and abdominal pain and was admitted for further management for rule out sepsis. Patient blood culture and urine culture came back negative. Will continue with tamsulosin for her urinary retention and intermittent straight cath. Patient also found to have a pancreatic mass as seen on MRI. Ultrasound guided biopsy was planned for today to rule out possible malignancy, however after speaking with the radiologist, believes the mass is most likely benign, and can follow-up outpatient within 3 to 6 months including tumor marker CA?19?19 results. Restarted patient's home medications, and patient is stable for discharge tomorrow back to her residential. Otherwise, no acute overnight events reported, and patient is calm at bedside. I discussed with and supervised the international guest coordinator physician who took care of this patient. I personally saw and examined the patient and discussed the assessment and plan with the entire medicine team, including my attending , I agree with most of the assessment and plan as documented below Leona Loya M.D. PGY-2 Disclaimer: Despite multiple revisions, due to the dictation software being used, the document bellow may not be free of grammatical errors including phonetic/typographic errors. However, this does not deter from our commitment to providing health care in the patient's best interest in mind. Documentation for date of: 08/17/24 Subjective Subjective Interval history: Patient evaluated today at the bedside. No overnight events reported. Vital signs stable at this time. Labs unremarkable. Patient still pending CTA 19?9 levels. Patient was scheduled to have pancreatic biopsy today however upon review with radiology department stated mass is most likely benign and can follow-up as outpatient with repeat imaging within 3 to 6 months. Anticipate discharge in the next 24 to 48 hours. Exam Vital Signs Temp Pulse Resp BP Pulse Ox O2 Del Method O2 Flow Rate 96.9 F 71 16 157/93 H 95 Room Air 8 08/17/24 08:00 08/17/24 08:07 08/17/24 08:00 08/17/24 08:07 08/17/24 08:00 08/17/24 08:00 08/14/24 15:26 Narrative Exam Physical Exam GENERAL: NAD, AAOx3 HEENT: Moist mucosa. Eyes open, symmetrical, & clear CARDIO: Heart RRR, no obvious murmurs PULM: No noted coughing/dyspnea CTA B/L, no R/W/R GI: Abdomen soft, nondistended, no pain on palpation. BSx4 SKIN/MSK/EXT: No wounds/rashes/edema/amputations, no pain on palpation. Pedal pulses present B/L NEURO: AAOx3, no focal neuro deficits, able to move all 4 extremities Objective Labs 08/18/24 04:55 08/18/24 04:55 Labs: Laboratory Results - last 24 hr 08/17/24 09:51 WBC 8.9 RBC 4.14 Hgb 13.0 Hct 37.9 MCV 92 MCH 31.4 MCHC 34.3 RDW Std Deviation 41.8 Plt Count 286 Neut % (Auto) 71 Lymph % (Auto) 14 [place] % (Auto) 8 Eos % (Auto) 6 Baso % (Auto) 0 Neut # (Auto) 6.3 Lymph # (Auto) 1.2 [place] # (Auto) 0.7 Eos # (Auto) 0.6 H Baso # (Auto) 0.0 Immature Gran # (Auto) 0.05 H Absolute Nucleated RBC 0.00 Immature Gran % 1 H Nucleated RBC % 0 PT 12.8 H INR 1.2 APTT 29.5 Sodium 136 Potassium 3.5 Chloride 102 Carbon Dioxide 26.1 Anion Gap 8 BUN 6 L Creatinine 0.3 L Estim Creat Clear Calc 145.6 eGFR > 60 BUN/Creatinine Ratio 20 Glucose 85 Calculated Osmolality 268 L Calcium 8.8 Corrected Calcium 8.9 Total Bilirubin 0.3 AST 44 H ALT 42 Alkaline Phosphatase 120 H Total Protein 6.2 Albumin 3.9 Globulin 2.3 Albumin/Globulin Ratio 1.7 ABG Interpretation ABG results: 08/12/24 09:25 VBG pH 7.38 VBG pCO2 48 VBG pO2 26 VBG Base Excess 2 Quality Measures Quality Measures sepsis Current suspected stage: sepsis Possible source: GI tract/intra-abdominal Blood cultures ordered: completed in ED Antibiotic ordered: Yes Advance care planning discussed with:: patient Assessment & Plan Assessment Current Active Medications: Generic Name Dose Route Start Last Admin Trade Name Freq PRN Reason Stop Dose Admin Acetaminophen 650 mg 08/12/24 12:59 08/14/24 09:29 Acetaminophen 325 Mg Tablet PO 09/11/24 12:58 650 mg Q6H PRN Administration PAIN SCALE 1-3 (mild Acetaminophen 1,000 mg 08/12/24 14:27 Acetaminophen 500 Mg Tablet PO 09/11/24 12:58 Q6H PRN Fever >100 Albuterol 2 puff 08/12/24 13:51 Albuterol Inh 8 Gm INH 09/11/24 13:59 Q2HR PRN wheezing, SOB Protocol Albuterol/Ipratropium 3 ml 08/12/24 13:51 08/12/24 15:59 Albuterol/Ipratropium (Duoneb) Rt Luba 3 Ml Nebu INH 09/11/24 14:59 3 ml Q4HRRT PRN Administration sob/wheezing Protocol Apixaban 2.5 mg 08/12/24 21:00 08/17/24 08:06 Apixaban 2.5 Mg Tablet PO 09/11/24 20:59 2.5 mg BID BHARAT Administration Carbamazepine 200 mg 08/12/24 21:00 08/17/24 08:07 Carbamazepine 100 Mg Chew PO 09/11/24 20:59 200 mg BID BHARAT Administration Diltiazem HCl 180 mg 08/12/24 17:30 08/17/24 08:04 Diltiazem Cd 180 Mg Capcr PO 09/11/24 17:29 180 mg QDAY BHARAT Administration Docusate Sodium 100 mg 08/13/24 09:00 08/17/24 08:06 Docusate Sod 100 Mg Capsule PO 09/12/24 08:59 100 mg DAILY BHARAT Administration Protocol Haloperidol Lactate 5 mg 08/12/24 17:40 Haloperidol Lact Inj 5 Mg/Ml Vial IM 09/11/24 17:39 X1 PRN AGITATION Hydralazine HCl 25 mg 08/15/24 00:30 08/17/24 05:29 Hydralazine Hcl 25 Mg Tablet PO 09/14/24 00:29 25 mg TID BHARAT Administration Ceftriaxone Sodium 1,000 mg/ 50 mls @ 100 mls/hr 08/12/24 16:49 08/17/24 08:07 Sodium Chloride IV 08/19/24 16:48 100 mls/hr QDAY BHARAT Administration Metronidazole 500 mg in 100 mls @ 200 mls/hr 08/12/24 16:49 08/17/24 05:24 Flagyl 500 Mg Iv IV 08/19/24 16:48 200 mls/hr Q8HR BHARAT Administration Lactulose 20 gm 08/13/24 09:00 08/17/24 08:06 Lactulose Syrup 20 Gm/30 Ml Udc PO 09/12/24 08:59 20 gm DAILY BHARAT Administration Protocol Levetiracetam 1,500 mg 08/14/24 21:00 08/17/24 08:04 Levetiracetam 250 Mg Tablet PO 09/13/24 20:59 1,500 mg BID BHARAT Administration Losartan Potassium 25 mg 08/16/24 15:15 08/17/24 08:06 Losartan Potassium 25 Mg Tablet PO 09/15/24 15:14 25 mg QDAY BHARAT Administration Magnesium Hydroxide 30 ml 08/12/24 12:59 Milk Of Magnesia Susp 30 Ml Udc PO 09/11/24 12:58 QDAY PRN CONSTIPATION Protocol Metoprolol Succinate 50 mg 08/13/24 09:00 08/17/24 08:07 Metoprolol Succinate Xl 25 Mg Tabcr PO 09/12/24 08:59 50 mg DAILY BHARAT Administration Ondansetron HCl 4 mg 08/12/24 12:59 Ondansetron Inj 2 Mg/Ml Inj 2 Ml IV 09/11/24 12:58 Q6H PRN NAUSEA OR VOMITING Protocol Pantoprazole Sodium 40 mg 08/17/24 09:00 08/17/24 08:07 Pantoprazole 40 Mg Tablet PO 09/16/24 08:59 40 mg QDAY BHARAT Administration Sodium Chloride 3 ml 08/12/24 09:22 08/12/24 09:35 Sodium Chloride Rt Luba 0.9% 3 Ml Nebu INH 09/11/24 09:21 3 ml PRN PRN Administration SOLN Tamsulosin HCl 0.4 mg 08/12/24 17:45 08/17/24 08:06 Tamsulosin Hcl 0.4 Mg Capsule PO 09/11/24 17:44 0.4 mg QDAY BHARAT Administration Plan The patient is a 69 y/o female with PMHx of cerebral palsy, developmental delay, hypertension, seizures, bedbound since 2020 (takes Eliquis DVT prophylaxis) comes in for an evaluation of sepsis. #Sepsis, ruled out #Urinary retention #Abdominal pain On admission, Patient did have a fever of 102 taken rectally, she was also tachycardic. Significant labs showed Lactate 2.7 -> 3.3 with a WBC of 21.1 No recent surgeries No abdominal wounds visualized on physical exam Will need to further workup Patient was given meropenem in the ED Spoke with care at home, denies any recent sick contacts .Patient appears to be distended from a bladder standpoint, could be contributing to abdominal pain Patient came in and found to have 2 or more SIRS criteria and was evaluated for sepsis. 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 Unlikely to require biopsy at this time. Oncology consulted who recommended ultrasound-guided biopsy of pancreas Spoke to radiology they believe mass is most likely benign and patient should follow-up as outpatient with repeat imaging with 3 within 3 to 6 months. ? Pending CA-19-9 #History of hypertension #Hypotension #History of hyperlipidemia Blood pressure was measured to 70 systolic at home Supervisor Clam Bed Dr. Jennings 08/14: Blood pressure currently elevated, in the 160s, currently holding off on additional antihypertensives will continue metoprolol and Cardizem. ?Continue Lipitor 20 mg at at bedtime ?Continue home metoprolol XL 50 mg ? Started on losartan 25 mg ?Continue with home Cardizem 180 CD #History of seizures Chronic Patient did not have seizure in the ED ?Continue home Keppra 500 mg twice daily by mouth ?Continue home carbamazepine 200 mg twice daily by mouth ?Seizure precautions ?Neurochecks every 4 hours #Bedbound #History of cerebral palsy #Developmental delay Patient is conserved, takes Eliquis she is mainly bedbound for DVT prophylaxis ?Will consider social service agency director referral ?Continue home Eliquis 2.5 mg twice daily Case discussed with my senior Dr. Loya PGY-[address] Indira Dickson MD PGY-1 Disposition: MedSurg DVT prophylaxis: Eliquis 2.5 mg BID GI prophylaxis: Protonix Diet: Cardiac CODE STATUS: Full code Attending Provider Attestation/Addendum I have examined the patient, reviewed labs and imaging findings, discussed the case with the resident(s), and reviewed entered orders. I agree with the plan of care as outlined in this note, with these additional summaries/recommendations: Patient seen at bedside. No acute overnight events. Patient was planned for biopsy of pancreatic mass today although was not completed. Case discussed with radiology and although mass is complex cystic it is unchanged from previous imaging and low suspicion for malignancy at this time. Radiology recommends repeat imaging in 4 to 6 months. Case management notified that patient no longer requires biopsy and arranging placement back to [facility]. Continue home antihypertensives. Continue home antiepileptics carbamazepine & keppra. Dr. Indira MD
--- NOTE | 2024-08-17 11:27 | PC.NURSE ---
Per Doctor Waldron patients pancreatic lesion has not changed since 2019 and most likely benign. No biopsy is needed at this time.
[2024-08-18] VITALS (10 sets, daily range): BP systolic 150–163; BP diastolic 68–82; PULSE 67–77; RESP 18–20; TEMP 36.1–36.7; O2SAT 96–97; BMI 38.5
[2024-08-18] MEDS: metroNIDAZOLE/NS 500 MG IVPB 500 MG/100 ML BAG 200 MG IV ×2 (05:06→14:07)
[2024-08-18] MEDS: hydrALAZINE HCL 25 MG TABLET PO ×2 (05:07→14:11)
[2024-08-18 05:39] LABS: Basophils % (Auto) 1 % (0-2.5); Eosinophils # (Auto) 0.6 Thou/mm3 (0.0-0.5); Eosinophils % (Auto) 7 % (0-10); Hematocrit 34.7 % (36.0-46.0); Hemoglobin 11.8 g/dL (12.0-16.0); Immature Granulocytes % (Auto) 1 % (0-0); Immature Granulocytes Auto 0.04 Thou/mm3 (0.00-0.00); Lymphocytes # (Auto) 1.3 Thou/mm3 (1.0-4.8); Lymphocytes % (Auto) 18 % (10-50); Mean Corpuscular Hemoglobin 31.1 pg (25.0-35.0); Mean Corpuscular Volume 91 fL (80-100); Monocytes # (Auto) 0.6 Thou/mm3 (0.0-0.8); Monocytes % (Auto) 9 % (0-12); Neutrophils # (Auto) 4.8 Thou/mm3 (1.8-7.7); Neutrophils % (Auto) 65 % (37-80); Nucleated Red Blood Cell % 0 /100 WBC (0); Platelet Count 253 Thou/mm3 (140-440); RDW Standard Deviation 41.4 fL (36.4-46.3); White Blood Count 7.4 Thou/mm3 (3.6-11.0)
[2024-08-18 06:38] LABS: CA 19-9 Antigen* 57 U/mL (<34)
[2024-08-18 06:39] LABS: Alanine Aminotransferase 43 U/L (10-49); Albumin, Serum 3.4 gm/dL (3.4-4.8); Albumin/Globulin Ratio 1.5 (1.2-2.2); Alkaline Phosphatase 106 U/L (46-116); Anion Gap 9 (7-16); Aspartate Amino Transferase 34 U/L (0-34); BUN/Creatinine Ratio 20 Ratio (12-20); Bilirubin,Total 0.3 mg/dL (0.3-1.2); Blood Urea Nitrogen 6 mg/dL (9-23); Calcium 8.4 mg/dL (8.3-10.6); Calcium (Corrected) 8.9 mg/dL (8.5-10.1); Carbon Dioxide 23.4 mMol/L (20.0-31.0); Chloride 103 mMol/L (98-107); Creatinine (Component) 0.3 mg/dL (0.6-1.3); Estimated Creatinine Clearance 145.5 mL/min (>60); Globulin 2.2 gm/dL (2.3-3.5); Glucose 86 mg/dL (74-106); Magnesium 1.9 mg/dL (1.6-2.6); Osmolality,Calculated 266 (275-295); Potassium 3.7 mMol/L (3.4-5.1); Sodium 135 mMol/L (136-145); Total Protein 5.6 gm/dL (5.7-8.2); eGFR > 60 See Note
[2024-08-18] MEDS: LACTULOSE SYRUP 20 GM/30 ML UDC PO (08:56)
[2024-08-18] MEDS: METOPROLOL SUCCINATE XL 25 MG TABCR 50 MG PO (08:56)
[2024-08-18] MEDS: cefTRIAXone 1,000 MG in SODIUM CHLORIDE 0.9% (Popper) 50 ML 100 MG IV (08:56)
[2024-08-18] MEDS: APIXABAN 2.5 MG TABLET PO (08:57)
[2024-08-18] MEDS: DILTIAZEM CD 180 MG CAPCR PO (08:57)
[2024-08-18] MEDS: LOSARTAN POTASSIUM 25 MG TABLET PO (08:57)
[2024-08-18] MEDS: DOCUSATE SOD 100 MG CAPSULE PO (08:57)
[2024-08-18] MEDS: levETIRAcetam 250 MG TABLET 1500 MG PO (08:57)
[2024-08-18] MEDS: PANTOPRAZOLE 40 MG TABLET PO (08:58)
[2024-08-18] MEDS: carBAMazepine 100 MG CHEW 200 MG PO (08:58)
[2024-08-18] MEDS: TAMSULOSIN HCL 0.4 MG CAPSULE PO (08:58)
--- NOTE | 2024-08-18 10:29 | ESDS_ITS ---
<Statement entered by Indigo Lebron DO - 08/19/24 09:18> I, Indigo Lebron DO, attest that I was physically present for the marie portions of the service and evaluated the patient with the resident and I reviewed and discussed the case with the resident and agree with the resident's findings and plans of care as documented above <Statement entered by Leona Loya MD - 08/19/24 04:37> I discussed with and supervised the geotechnical intern physician who took care of this patient. I personally saw and examined the patient and discussed the assessment and plan with the entire medicine team, including my attending Dr. Lebron, I agree with most of the assessment and plan as documented below Leona Loya M.D. PGY-2 Planned Discharge Date 08/18/24 DS: Providers Provider Date of admission: 08/12/24 13:21 Primary care physician: Solomon Dickson MD Admitting Provider: Blayne Funk DO Attending Provider on Admission: Blayne Funk DO Consults: 08/12/24 15:37 Referral Physical Therapy Routine Comment: Physician Instructions: 08/13/24 08:27 Consult to Oncology Routine Comment: Consulting Provider: Mainor Bhakta Attending Provider on DC: Indigo Lebron DO Discharging Provider: Gadiel Dickson MD Anticipated date of discharge: 08/18/24 DS: Diagnosis Problem List Completed Was Problem List Reviewed/Reconciled?: Yes Hospital Course Hospital Course Hospital course: 69-year-old female with past medical history of cerebral palsy, developmental delay, hypertension, seizures, bedbound since 2020 who presented to the ED with urinary retention and abdominal pain and was admitted for further management for rule out sepsis. Patient blood culture and urine culture came back negative and patient was treated with IVFs and IV antibiotic therapy. Patient came in with urinary retention at the time of admission and tamsulosin was started as well as intermittent straight cath. Patient was also found to have a pancreatic mass on MRI. Ultrasound guided biopsy was planned to rule out possible malignancy, however after speaking with the radiologist, believes the mass is most likely benign, and can follow-up outpatient within 3 to 6 months including tumor marker CA?19?19 results. Patient during admission was found to be hypotensive, however later came back to baseline with hypertension for which home BP medications were started. Patient has history of seizures for which home anti-epileptics were resumed as taken at home. At this time patient is medically stable for discharge. Recommended to follow-up with primary care physician Solomon Dicksno MD @ 3:45pm on 08[facility]20[facility]2024[facility] [address] [facility] [id number] Patient will benefit from daily straight In-N -Out cath for urinary retention as needed. Follow-up with urology for evaluation of urinary retention. Patient will require outpatient follow-up for pancreatic mass with imaging studies in 3 to 6 months. Patient should follow up with primary care physician regarding mild elevation in CA 19-9 as outpatient. Should any symptoms recur or worsen patient is instructed to return to the ED Problem List: #Sepsis-ruled out #Urinary retention #Abdominal pain #Pancreatic mass #History of hypertension #Hypotension #History of hyperlipidemia #History of seizures #Bedbound #History of cerebral palsy #Developmental delay Case discussed with my senior Dr. Loya PGY-[address] Vi Dickson MD PGY-1 Status at Discharge Functional status at discharge: bed bound Overall status at discharge: patient is back to baseline Time Spent with Patient Time attestation: Total time spent providing and/or coordinating discharge services: Time spent: Greater than 30 minutes Exam Vital Signs Temp Pulse Resp BP Pulse Ox O2 Del Method O2 Flow Rate 97.0 F 77 18 157/82 H 96 Room Air 8 08/18/24 07:26 08/18/24 08:57 08/18/24 07:26 08/18/24 08:57 08/18/24 07:26 08/18/24 07:26 08/18/24 04:00 Narrative Exam Physical Exam GENERAL: NAD, developmentally delayed HEENT: Moist mucosa. Eyes open, symmetrical, & clear CARDIO: Heart RRR, no obvious murmurs PULM: No noted coughing/dyspnea CTA B/L, no R/W/R GI: Abdomen soft, nondistended, no pain on palpation. BSx4 SKIN/MSK/EXT: No wounds/rashes/edema/amputations, no pain on palpation. Pedal pulses present B/L NEURO: Developmentally delayed, no focal neuro deficits Discharge Plan Plan Patient Disposition: Xfer Wrapper Counter Acute Disposition Comment: Hospitalist Care Plan Goals: Recommended to follow-up with primary care physician Solomon Dickson MD @ 3:45pm on 08/20/2024, [address] [facility] [id number] within 1 week of discharge Patient will benefit from daily straight In-N-Out cath for urinary retention as needed Follow-up with urology for evaluation of urinary retention Patient will require outpatient follow-up for pancreatic mass with imaging studies in 3 to 6 months Patient should follow up with primary care physician regarding mild elevation in CA 19-9 as outpatient Should any symptoms recur or worsen patient is instructed to return to the ED Prescriptions/Referrals Prescriptions/Med Rec: New tamsulosin [Flomax] 0.4 mg capsule 0.4 mg PO QDAY Qty: 30 0RF Continued furosemide [Lasix] 40 MG tablet 40 mg PO QAM Qty: 0 Rx Instructions: for edema carbamazepine [Tegretol] 200 MG tablet 200 mg PO BID \ Days Qty: 0 simvastatin 20 MG tablet 20 mg PO HS Qty: 0 levetiracetam 500 MG tablet 1,500 mg PO BID Qty: 0 acetaminophen 325 mg Tablet 650 mg PO Q4H PRN (Reason: temp 101 *F) bisacodyl 10 mg Suppository 10 mg ME PRN PRN (Reason: Constipation) Rx Instructions: If no bm in 2 days May repeat in 8 hr if no result ferrous sulfate 325 mg (65 mg iron) Tablet 325 mg PO QDAY cholecalciferol (vitamin D3) [Vitamin D3] 10 mcg (400 unit) Tablet 400 unit PO QDAY lactulose 10 gram/15 mL Solution 30 ml PO QDAY calcium carbonate 260 mg calcium (648 mg) tablet 600 mg PO BID potassium chloride 8 mEq tablet extended release 8 meq PO QAM Rx Instructions: for hypertension Eliquis 2.5 mg Tablet 2.5 mg PO BID Qty: 70 0RF omeprazole 20 mg Tablet,Delayed Release (Dr/Ec) 20 mg PO QDAY hydralazine 25 mg tablet 25 mg PO TID Qty: 90 0RF metoprolol succinate 50 mg tablet extended release 24 hr 50 mg PO QDAY ascorbic acid (vitamin C) [Vitamin C] 500 mg tablet 500 mg PO QDAY triamcinolone acetonide 0.1 % cream 1 applic TOPICAL PRN PRN (Reason: rash) acetaminophen 500 mg tablet 1,000 mg PO Q4H PRN (Reason: pain) dextromethorphan-guaifenesin 10-100 mg/5 mL syrup 10 ml PO Q6H PRN (Reason: cough/congestion) ipratropium-albuterol 0.5 mg-3 mg(2.5 mg base)/3 mL solution for nebulization 3 ml inhalation Q4H PRN (Reason: respiratory relief/congestion) Rx Instructions: q4-6hrs prn docusate sodium 250 mg capsule 250 mg PO BID losartan-hydrochlorothiazide [Hyzaar] 100-12.5 mg tablet 1 tab PO QDAY multivitamin,[id number]-min Tablet 1 tab PO QDAY Rx Instructions: multivitamins with minerals diltiazem HCl 180 mg capsule,extended release 24hr 180 mg PO HS No Action docusate sodium 100 MG capsule 100 mg PO BID Qty: 0 ketoconazole 2 % Cream 1 applic TOPICAL PRN PRN (Reason: Rash) metoprolol succinate 25 mg Tablet Extended Release 24 Hr 25 mg PO QDAY losartan 100 mg tablet 100 mg PO QDAY Qty: 30 0RF Referrals: Solomon Dickson MD [Primary Care Provider] - Patient/Caregiver Discharge Instructions Discharge Activity: resume usual activities Education Materials: Sepsis, Understanding Sepsis Print Language: Luxembourgish Stand Alone Forms: [employer] Award Info., Patient Portal Info Letter Discharge Order Discharge Orders: Discharge (Routine); Ordered 08/18/24 Ordered By: Gadiel Dickson Quality Discharge Quality Measures VTE prophylaxis
[2024-08-18] MEDS: LOSARTAN POTASSIUM 25 MG TABLET 50 MG PO (10:55)
--- NOTE | 2024-08-18 10:55 | PC.NURSE ---
gave pt 1 additional tablet for a total dose of 50 mg po losartan.
== END 2024-08-18 14:37 | DRG 439 ==
LOC: SERX 12:27 → SERHOLD 13:24 → S3NX 13:57
PROVIDERS: Radiology Diagnostic Radiology; Student in an Organized Health Care Education/Training Program; Admitting Provider Student in an Organized Health Care Education/Training Program; Emergency Provider Emergency Medicine; PCP Family Medicine; Visit Provider Student in an Organized Health Care Education/Training Program
DX: K86.9 Disease of pancreas, unspecified (principal); R71.0 Precipitous drop in hematocrit; I11.0 Hypertensive heart disease with heart failure; I50.9 Heart failure, unspecified; I45.4 Nonspecific intraventricular block; G80.9 Cerebral palsy, unspecified; R33.9 Retention of urine, unspecified; R97.0 Elevated carcinoembryonic antigen [CEA]; G40.909 Epilepsy, unspecified, not intractable, without status epilepticus; I95.9 Hypotension, unspecified; E04.1 Nontoxic single thyroid nodule; R59.0 Localized enlarged lymph nodes; I73.89 Other specified peripheral vascular diseases; R50.9 Fever, unspecified; K80.20 Calculus of gallbladder without cholecystitis without obstruction; E78.5 Hyperlipidemia, unspecified; Z74.01 Bed confinement status; Z79.899 Other long term (current) drug therapy; Z79.01 Long term (current) use of anticoagulants; Z88.1 Allergy status to other antibiotic agents; Z87.440 Personal history of urinary (tract) infections
CPT/HCPCS: 36415; 71045; 71260; 74177; 74183; 80053; 80307; 81001; 82105; 82378; 82803; 83605; 83690; 83735; 83880; 84145; 84443; 84484; 85025; 85610; 85730; 86301; 87040; 87081; 87086; 87400; 87634; 87811; 93005; 93225; 93306; 94640; 94644; 96361; 96365; 96366; 96367; 96375; 97162; 99291; A4649; A9270; A9579; J0696; J1630; J2185; J2470; J2919; J3370; J3490; J7030; J7050; Q9967; Z7610; J1836

== ENCOUNTER 2024-08-27 11:50 | Inpatient (IN) | payer MEDICARE, MEDICAID, SELFPAY ==
[2024-08-27 12:08] VITALS: PULSE 62; RESP 18; O2SAT 96; BMI 24.9
[2024-08-27 12:13] VITALS: BP 112/65; PULSE 60; RESP 18; TEMP 36.4; O2SAT 96
--- NOTE | 2024-08-27 12:28 | PD.EDSEIZ ---
ED Seizures RME/HPI General Chief Complaint: Seizure Stated Complaint: SEIZURE Time Seen by Provider: 08/27/24 12:14 Arrival date/time: 08/27/24 11:50 RME / HPI RME / HPI Narrative: 69-year-old female patient with significant history of seizure disorder, no cerebral palsy, developmental delay, hypertension, bedbound was brought in by EMS for witnessed tonic-clonic seizure. Lasting for 30 seconds. On my initial evaluation patient is alert and awake however nonverbal. Patient does not follow command. Patient is currently taking Keppra and Tegretol with good compliance. [facility]. According to EMS patient seizure happened while at the back of the van setting. Related Data Home Medications ?Medication ?Instructions ?Recorded ?Confirmed carbamazepine 200 mg tablet 200 mg PO BID \ days ##0 04/04/09 08/14/24 (Tegretol) furosemide 40 mg tablet (Lasix) 40 mg PO QAM ##0 04/04/09 08/14/24 simvastatin 20 mg tablet 20 mg PO HS ##0 04/04/09 08/14/24 docusate sodium 100 mg capsule 100 mg PO BID ##0 06/05/17 08/14/24 levetiracetam 500 mg tablet 1,500 mg PO BID Seizures ##0 06/05/17 08/14/24 potassium chloride 8 mEq 8 meq PO QAM 02/23/20 08/14/24 tablet,extended release acetaminophen 325 mg tablet 650 mg PO Q4H PRN temp 101 *F 04/21/20 08/14/24 bisacodyl 10 mg rectal suppository 10 mg AL PRN PRN Constipation 04/21/20 08/14/24 calcium carbonate 600 mg PO BID 04/21/20 08/14/24 cholecalciferol (vitamin D3) 10 400 unit PO QDAY 04/21/20 08/14/24 mcg (400 unit) tablet (Vitamin D3) ferrous sulfate 325 mg (65 mg 325 mg PO QDAY 04/21/20 08/14/24 iron) tablet ketoconazole 2 % topical cream 1 applic topical PRN PRN Rash 04/21/20 08/14/24 lactulose 10 gram/15 mL oral 30 ml PO QDAY 04/21/20 08/14/24 solution metoprolol succinate 25 mg 25 mg PO QDAY 12/31/23 08/14/24 tablet,extended release 24 hr omeprazole 20 mg tablet,delayed 20 mg PO QDAY 12/31/23 08/14/24 release acetaminophen 500 mg tablet 1,000 mg PO Q4H PRN pain 08/14/24 08/14/24 ascorbic acid (vitamin C) 500 mg 500 mg PO QDAY 08/14/24 08/14/24 tablet (Vitamin C) dextromethorphan-guaifenesin 10 10 ml PO Q6H PRN cough/congestion 08/14/24 08/14/24 mg-100 mg/5 mL oral syrup diltiazem HCl 180 mg 180 mg PO HS 08/14/24 08/14/24 capsule,extended release 24 hr docusate sodium 250 mg capsule 250 mg PO BID 08/14/24 08/14/24 ipratropium 0.5 mg-albuterol 3 mg 3 ml inhalation Q4H PRN 08/14/24 08/14/24 (2.5 mg base)/3 mL nebulization respiratory relief/congestion soln losartan 100 1 tab PO QDAY 08/14/24 08/14/24 mg-hydrochlorothiazide 12.5 mg tablet (Hyzaar) metoprolol succinate 50 mg 50 mg PO QDAY 08/14/24 08/14/24 tablet,extended release 24 hr multivitamin,ky-wqrf-Qf-FA-min 1 tab PO QDAY nutrition supplement 08/14/24 08/14/24 triamcinolone acetonide 0.1 % 1 applic topical PRN PRN rash 08/14/24 08/14/24 topical cream Previous Rx's ?Medication ?Instructions ?Recorded apixaban 2.5 mg tablet (Eliquis) 2.5 mg PO BID #70 tabs 02/26/20 hydralazine 25 mg tablet 25 mg PO TID #90 tabs 01/03/24 losartan 100 mg tablet 100 mg PO QDAY #30 tabs 01/03/24 tamsulosin 0.4 mg capsule (Flomax) 0.4 mg PO QDAY #30 caps 08/18/24 ibuprofen 600 mg tablet 600 mg PO TID PRN pain #30 tabs 08/27/24 nitrofurantoin 100 mg PO Q12H 7 days #14 caps 08/27/24 monohydrate/macrocrystals 100 mg capsule (Macrobid) Allergies Allergy/AdvReac Type Severity Reaction Status Date / Time theophylline Allergy Intermediate unknown Verified 08/14/24 03:48 promethazine Allergy Unknown UNKNOWN Verified 08/14/24 03:48 amoxicillin Allergy Verified 08/14/24 03:48 ciprofloxacin (From Cipro) Allergy Verified 08/14/24 03:48 Review of Systems Review of Systems Narrative Review of Systems: Review of system reviewed and within normal limits except mentioned in HPI ED Exam Narrative Physical exam: VITAL SIGNS: Reviewed. GENERAL APPEARANCE: Alert and awake, does not follows commands, no acute distress, HEAD AND FACE: Non-traumatic. ENT: PERRL, pink conjunctivitis, eyelid no trauma, Mucous membrane moist. NECK: Supple, nontender, no nuchal rigidity. CHEST: No tenderness, no crepitus, no paradoxical movement, no retractions. LUNGS: Clear, well ventilated, symmetric, no rales, no wheezing, no ronchi, no stridor, good breath sounds bilaterally. HEART: Regular rate, regular rhythm, no murmur, no gallops. ABDOMEN: Soft, positive bowel sounds, nondistended, no guarding, nontender, no rebound, no masses, RECTAL: Deferred. GENITAL: Deferred. NEUROLOGICAL: Gross motor function intact sensory function intact, Appropriate for age. MUSCULOSKELETAL: low back nontender, full range of motion. EXTREMITIES: Swelling noted of the proximal femur with tenderness on the right, limited range of motion. SKIN: Color pink, dry, no rash, no lacerations, no abrasions, no contusions. LYMPHATICS: Deferred. Course Quality Measures none Orders Category Date Time Status COVID-19 Screening Questionnaire NOW Care 08/27/24 21:36 Active Decision to Admit X1 Care 08/27/24 21:36 Active In and Out Catheter X1 Care 08/27/24 12:54 Completed Consult to Orthopedic Stat Cons 08/27/24 21:28 Ordered XR femur RT 2V Stat Exams 08/27/24 20:57 Completed XR knee limited RT 2V Stat Exams 08/27/24 17:24 Completed CBC [CBC] Stat Lab 08/27/24 12:35 Completed CMP [Comprehensive Metabolic Panel] Stat Lab 08/27/24 12:35 Completed UA, C/S IF [Urinalysis, C/S if Indicated] Stat Lab 08/27/24 13:27 Completed Urine Culture Stat Lab 08/27/24 13:27 Received Nitrofurantoin Macro [Macrobid] Med 08/27/24 16:03 Discontinued 100 mg PO X1 ONE Sodium Chloride 0.9% 1000 ml [Ns] 1,000 ml Med 08/27/24 12:47 Discontinued IV 999 mls/hr Vital Signs Vital signs: Vital Signs Temperature 97.6 F 08/27/24 12:13 Pulse Rate 60 08/27/24 12:13 Respiratory Rate 18 08/27/24 12:13 Blood Pressure 112/65 08/27/24 12:13 Pulse Oximetry (%) 96 08/27/24 12:13 Oxygen Delivery Method Room Air 08/27/24 12:13 Seizure MDM Narrative MDM Narrative:: 69-year-old female patient with significant history of seizure disorder, nonverbal, mental retardation, was brought in by EMS for witnessed tonic-clonic seizure. Lasting for 30 seconds. On my initial evaluation patient is alert and awake however nonverbal. Patient does not follow command. Patient is currently taking Keppra and Tegretol with good compliance. Patient lives in a jail. No recurrence of seizure noted in the emergency room. Laboratory Significant for UTI. X-ray of the right knee came back unremarkable. X-ray of the femur including hip showed subtrochanteric fracture of the femur Patient was given Macrobid and IV fluids in the emergency room. Spoke with Dr. Mancia, orthopedic surgeon on-call, who advised me to asked the hospitalist to admit the patient. Patient data External records reviewed:: None Clinical information provided by:: EMS Social determinants that could affect healthcare access:: none Patient has the following chronic illnesses:: Seizure disorder, developmental delayed How is presenting disease/condition affected by chronic disease/condition?: caused by Evaluation data The following diagnostics were reviewed and interpreted by me:: lab results and radiology exam(s) Lab and/or radiology exams considered but not ordered:: None Interpretation Summary: See results in MDM Medications / Prescriptions Medications or Prescriptions considered but not ordered:: None Medication administrations:: Medication Administration History Discontinued Medications Sodium Chloride (Ns) 1,000 mls @ 999 mls/hr IV .Q1H1M ONE Stop: 08/27/24 13:47 Last Infusion: 08/27/24 17:31 Dose: Infused Documented By: Admin: 08/27/24 14:25 Dose: 999 mls/hr Documented By: ARAMIS Nitrofurantoin Macrocrystals (Nitrofurantoin Macro 100 Mg Capsule) 100 mg PO X1 ONE Stop: 08/27/24 16:04 Last Admin: 08/27/24 17:40 Dose: 100 mg Documented By: JUSTIN Macrobid and IV fluids for hydration. Patient was also given morphine IM. Consultations Consultation(s) initiated? (list below): Yes Diagnosis Seizure Differential Diagnosis: focal seizure and generalized seizure Most likely diagnosis given after review of the tests above:: UTI, breakthrough seizure, subtrochanteric fracture femur Admission Indicated Admission indicated?: indicated Explain why admission is indicated or not indicated:: Patient is to be admitted for further management. Admission Request Was there a request for admission?: No Disposition Plan Disposition Plan: Admit Discharge Plan Plan Patient Disposition: Admit Acute Care w/in Hospital Disposition Comment: stable Prescriptions/Referrals Prescriptions/Med Rec: New nitrofurantoin monohyd/m-cryst [Macrobid] 100 mg capsule 100 mg PO Q12H 7 Days Qty: 14 0RF Rx Instructions: must administer with a meal/food ibuprofen 600 mg tablet 600 mg PO TID PRN (Reason: pain) Qty: 30 0RF No Action furosemide [Lasix] 40 MG tablet 40 mg PO QAM Qty: 0 Rx Instructions: for edema carbamazepine [Tegretol] 200 MG tablet 200 mg PO BID \ Days Qty: 0 simvastatin 20 MG tablet 20 mg PO HS Qty: 0 levetiracetam 500 MG tablet 1,500 mg PO BID Qty: 0 docusate sodium 100 MG capsule 100 mg PO BID Qty: 0 acetaminophen 325 mg Tablet 650 mg PO Q4H PRN (Reason: temp 101 *F) bisacodyl 10 mg Suppository 10 mg AL PRN PRN (Reason: Constipation) Rx Instructions: If no bm in 2 days May repeat in 8 hr if no result ferrous sulfate 325 mg (65 mg iron) Tablet 325 mg PO QDAY ketoconazole 2 % Cream 1 applic TOPICAL PRN PRN (Reason: Rash) cholecalciferol (vitamin D3) [Vitamin D3] 10 mcg (400 unit) Tablet 400 unit PO QDAY lactulose 10 gram/15 mL Solution 30 ml PO QDAY calcium carbonate 260 mg calcium (648 mg) tablet 600 mg PO BID potassium chloride 8 mEq tablet extended release 8 meq PO QAM Rx Instructions: for hypertension Eliquis 2.5 mg Tablet 2.5 mg PO BID Qty: 70 0RF metoprolol succinate 25 mg Tablet Extended Release 24 Hr 25 mg PO QDAY omeprazole 20 mg Tablet,Delayed Release (Dr/Ec) 20 mg PO QDAY hydralazine 25 mg tablet 25 mg PO TID Qty: 90 0RF losartan 100 mg tablet 100 mg PO QDAY Qty: 30 0RF metoprolol succinate 50 mg tablet extended release 24 hr 50 mg PO QDAY ascorbic acid (vitamin C) [Vitamin C] 500 mg tablet 500 mg PO QDAY triamcinolone acetonide 0.1 % cream 1 applic TOPICAL PRN PRN (Reason: rash) acetaminophen 500 mg tablet 1,000 mg PO Q4H PRN (Reason: pain) dextromethorphan-guaifenesin 10-100 mg/5 mL syrup 10 ml PO Q6H PRN (Reason: cough/congestion) ipratropium-albuterol 0.5 mg-3 mg(2.5 mg base)/3 mL solution for nebulization 3 ml inhalation Q4H PRN (Reason: respiratory relief/congestion) Rx Instructions: q4-6hrs prn docusate sodium 250 mg capsule 250 mg PO BID losartan-hydrochlorothiazide [Hyzaar] 100-12.5 mg tablet 1 tab PO QDAY multivitamin,cp-tqgz-At-FA-min Tablet 1 tab PO QDAY Rx Instructions: multivitamins with minerals diltiazem HCl 180 mg capsule,extended release 24hr 180 mg PO HS tamsulosin [Flomax] 0.4 mg capsule 0.4 mg PO QDAY Qty: 30 0RF Referrals: No Primary/Family,Physician [Primary Care Provider] - In 1 week Problem List Clinical Impression: UTI (urinary tract infection), Breakthrough seizure, Closed subtrochanteric fracture of femur Patient/Caregiver Discharge Instructions Discharge Activity: activity as tolerated Education Materials: ED Seizure, Recurrent (Adult) Print Language: Mohawk Stand Alone Forms: [facility] Award Info., Patient Portal Info Letter PA/PERIOPERATIVE EDUCATOR Supervising Physician PA/PERIOPERATIVE EDUCATOR Supervising Physician: MD Chau
[2024-08-27 12:55] LABS: Basophils % (Auto) 1 % (0-2.5); Eosinophils # (Auto) 0.2 Thou/mm3 (0.0-0.5); Eosinophils % (Auto) 3 % (0-10); Hematocrit 37.9 % (36.0-46.0); Hemoglobin 12.8 g/dL (12.0-16.0); Immature Granulocytes % (Auto) 0 % (0-0); Immature Granulocytes Auto 0.02 Thou/mm3 (0.00-0.00); Lymphocytes # (Auto) 1.4 Thou/mm3 (1.0-4.8); Lymphocytes % (Auto) 18 % (10-50); Mean Corpuscular HGB Conc 33.8 g/dl (31.0-37.0); Mean Corpuscular Hemoglobin 31.3 pg (25.0-35.0); Mean Corpuscular Volume 93 fL (80-100); Monocytes # (Auto) 0.6 Thou/mm3 (0.0-0.8); Monocytes % (Auto) 8 % (0-12); Neutrophils # (Auto) 5.2 Thou/mm3 (1.8-7.7); Neutrophils % (Auto) 70 % (37-80); Nucleated Red Blood Cell % 0 /100 WBC (0); Platelet Count 308 Thou/mm3 (140-440); RDW Standard Deviation 43.9 fL (36.4-46.3); Red Blood Count 4.09 Miln/mm3 (4.00-5.20); White Blood Count 7.5 Thou/mm3 (3.6-11.0)
[2024-08-27 13:30] LABS: Alanine Aminotransferase 23 U/L (10-49); Albumin, Serum 3.9 gm/dL (3.4-4.8); Albumin/Globulin Ratio 1.4 (1.2-2.2); Alkaline Phosphatase 124 U/L (46-116); Anion Gap 8 (7-16); Aspartate Amino Transferase 22 U/L (0-34); BUN/Creatinine Ratio 23 Ratio (12-20); Bilirubin,Total 0.3 mg/dL (0.3-1.2); Blood Urea Nitrogen 9 mg/dL (9-23); Calcium 9.4 mg/dL (8.3-10.6); Calcium (Corrected) 9.5 mg/dL (8.5-10.1); Carbon Dioxide 26.8 mMol/L (20.0-31.0); Chloride 100 mMol/L (98-107); Creatinine (Component) 0.4 mg/dL (0.6-1.3); Estimated Creatinine Clearance 123.9 mL/min (>60); Globulin 2.7 gm/dL (2.3-3.5); Glucose 112 mg/dL (74-106); Osmolality,Calculated 269 (275-295); Potassium 3.9 mMol/L (3.4-5.1); Sodium 135 mMol/L (136-145); Total Protein 6.6 gm/dL (5.7-8.2); eGFR > 60 See Note
[2024-08-27 13:32] LABS: Collection Type, Urine Clean Catch; Squamous Epithelial Cell,Urine 0 /hpf (0-5)
[2024-08-27 13:41] LABS: Bacteria,Urine Rare; Bilirubin,Urine Negative (Negative); Blood,Urine Negative (Negative); Clarity,Urine Clear (Clear/Hazy); Color,Urine Lt-Yellow (Lt Yel-Yel); Glucose, Urine Negative (Negative); Ketones,Urine Negative (Negative); Leukocyte Esterase,Urine Positive (Negative); Nitrite,Urine Negative (Negative); PH,Urine 6.5 (5.0-7.0); Protein,Urine Negative (Neg - Trace); RBC,Urine 4 /hpf (0-3); Specific Gravity,Urine 1.007 (1.001-1.035); Urobilinogen,Urine Negative mg/dL (0.0-1.0); WBC,Urine 80 /hpf (0-5)
[2024-08-27 13:42] LABS: Culture Indicated,Urine Yes
[2024-08-27 14:03] VITALS: BP 117/58; PULSE 64; RESP 18; TEMP 36.6; O2SAT 99
[2024-08-27] MEDS: SODIUM CHLORIDE 0.9% 1000 ML 1,000 ML 999 ML IV (14:25)
--- NOTE | 2024-08-27 15:10 | PC.NURSE ---
RN spoke with Carline Jones director of patients [facility] and was updated with previous hospitalization and recent discharge from this facility on . Per Carline, patient was admitted for issue of seizure and passing out. RN updated patient with plan of care.
[2024-08-27 16:18] VITALS: BP 145/65; PULSE 62; RESP 18; TEMP 37.1; O2SAT 97
--- NOTE | 2024-08-27 17:24 | XR_ITS ---
EXAMINATION: XR knee limited RT 1-2V ORDERING PROVIDER: NOEMI Fajardo HISTORY: KNEE PAIN TECHNIQUE: 2 radiographs of the right knee were obtained. COMPARISON: 10/11/2010, right knee radiographs. FINDINGS: No acute fracture or dislocation. Moderate medial compartment degenerative changes. No soft tissue swelling. No knee joint effusion. IMPRESSION: No acute bony findings.
[2024-08-27] MEDS: NITROFURANTOIN MACRO 100 MG CAPSULE PO (17:40)
[2024-08-27 18:20] VITALS: BP 168/89; PULSE 66; RESP 16; TEMP 37; O2SAT 96
[2024-08-27 20:08] VITALS: BP 171/80; PULSE 67; RESP 18; TEMP 36.6; O2SAT 95
--- NOTE | 2024-08-27 20:57 | XR_ITS ---
Examination: Right femur 2 views Technique one AP lateral right femur 2 views Exam date and time: August 27, 20242000 hrs. Indications: Seizure today, patient fell with injury to the hip, right hip pain. Findings: Acute intertrochanteric fracture right hip, at least 23 mm offset of the main fracture fragments Shaft of the femur intact Impression: Acute displaced intertrochanteric fracture right hip
--- NOTE | 2024-08-27 22:26 | PD.ORTHCON ---
HPI Consult details Reason for consultation narrative: Patient admitted with a chief complaint of witnessed seizure. Has history of seizure disorder History of present illness: Patient was brought to the emergency room after seizure being observed by snf. When admitted she was noted to have pain in her right hip girdle. I was contacted to evaluate her peritrochanteric right hip fracture Past Medical History Past Medical History NEUROLOGIC: Positive Neurological Disorders, Seizures and Cerebral Palsy CARDIAC: Positive Peripheral Vascular Disease, Hypercholesterolemia, Edema and Hypertension; Negative Cardiac Disorders or Congestive Heart Failure RESPIRATORY: Negative Chronic Obstructive Pulmonary Disease (COPD) or Asthma GASTROINTESTINAL: Positive Gastrointestinal Disorders GENITOURINARY: Negative Genitourinary Disorders or Renal Disease MUSCULOSKELETAL: Positive Musculoskeletal Disorders, Osteoporosis and Fractures ENDOCRINE: Positive Endocrine Disorders and Hypoglycemia; Negative Diabetes Mellitus Type 1 or Diabetes Mellitus Type 2 HEMATOLOGIC: Negative Blood Disorders or Sickle Cell Disease OTHER HISTORY: Negative Blood Transfusions, Blood Transfusion Reaction or Anesthesia Reactions Surgical History SURGICAL: Positive Abdominal Surgery Social History SMOKING STATUS: Unknown if ever smoked SECOND HAND EXPOSURE: No SUBSTANCE USE: does not use Meds Home Medications and Allergies Home Medications ?Medication ?Instructions ?Recorded ?Confirmed ?Type carbamazepine 200 mg tablet 200 mg PO BID \ days ##0 04/04/09 08/14/24 History (Tegretol) furosemide 40 mg tablet (Lasix) 40 mg PO QAM ##0 04/04/09 08/14/24 History simvastatin 20 mg tablet 20 mg PO HS ##0 04/04/09 08/14/24 History docusate sodium 100 mg capsule 100 mg PO BID ##0 06/05/17 08/14/24 History levetiracetam 500 mg tablet 1,500 mg PO BID Seizures ##0 06/05/17 08/14/24 History potassium chloride 8 mEq 8 meq PO QAM 02/23/20 08/14/24 History tablet,extended release acetaminophen 325 mg tablet 650 mg PO Q4H PRN temp 101 *F 04/21/20 08/14/24 History bisacodyl 10 mg rectal suppository 10 mg DE PRN PRN Constipation 04/21/20 08/14/24 History calcium carbonate 600 mg PO BID 04/21/20 08/14/24 History cholecalciferol (vitamin D3) 10 400 unit PO QDAY 04/21/20 08/14/24 History mcg (400 unit) tablet (Vitamin D3) ferrous sulfate 325 mg (65 mg 325 mg PO QDAY 04/21/20 08/14/24 History iron) tablet ketoconazole 2 % topical cream 1 applic topical PRN PRN Rash 04/21/20 08/14/24 History lactulose 10 gram/15 mL oral 30 ml PO QDAY 04/21/20 08/14/24 History solution metoprolol succinate 25 mg 25 mg PO QDAY 12/31/23 08/14/24 History tablet,extended release 24 hr omeprazole 20 mg tablet,delayed 20 mg PO QDAY 12/31/23 08/14/24 History release acetaminophen 500 mg tablet 1,000 mg PO Q4H PRN pain 08/14/24 08/14/24 History ascorbic acid (vitamin C) 500 mg 500 mg PO QDAY 08/14/24 08/14/24 History tablet (Vitamin C) dextromethorphan-guaifenesin 10 10 ml PO Q6H PRN cough/congestion 08/14/24 08/14/24 History mg-100 mg/5 mL oral syrup diltiazem HCl 180 mg 180 mg PO HS 08/14/24 08/14/24 History capsule,extended release 24 hr docusate sodium 250 mg capsule 250 mg PO BID 08/14/24 08/14/24 History ipratropium 0.5 mg-albuterol 3 mg 3 ml inhalation Q4H PRN 08/14/24 08/14/24 History (2.5 mg base)/3 mL nebulization respiratory relief/congestion soln losartan 100 1 tab PO QDAY 08/14/24 08/14/24 History mg-hydrochlorothiazide 12.5 mg tablet (Hyzaar) metoprolol succinate 50 mg 50 mg PO QDAY 08/14/24 08/14/24 History tablet,extended release 24 hr multivitamin,xx-zove-Kf-FA-min 1 tab PO QDAY nutrition supplement 08/14/24 08/14/24 History triamcinolone acetonide 0.1 % 1 applic topical PRN PRN rash 08/14/24 08/14/24 History topical cream Allergies Allergy/AdvReac Type Severity Reaction Status Date / Time theophylline Allergy Intermediate unknown Verified 08/14/24 03:48 promethazine Allergy Unknown UNKNOWN Verified 08/14/24 03:48 amoxicillin Allergy Verified 08/14/24 03:48 ciprofloxacin (From Cipro) Allergy Verified 08/14/24 03:48 Exam Vital Signs Temp Pulse Resp BP Pulse Ox O2 Del Method 98 F 67 18 171/80 H 95 Room Air 08/27/24 20:08 08/27/24 20:08 08/27/24 20:08 08/27/24 20:08 08/27/24 20:08 08/27/24 20:08 Blood pressure 171/80 pulse ox 95% Narrative Exam Patient is alert. She is not oriented. History of developmental delay. She is however able to follow simple commands and when asked to move upper extremities she was able to do so and the sequence requested. When I asked her to turn head [id number]-moos she was able to do so. When I asked her to flex and extend her feet she did so with good comprehension. Her speech is characterized bDysphagia. I could understand easily her yes and noes. She did not speak in complete sentences. She was able to lift her head on command. When I asked her to move her shoulders elbows wrist hands and fingers she did it with quick movements and with no evidence of any pain in her shoulders elbows wrist hands or fingers bilaterally and they were passively moved and there was no pain. No chest wall pain. Abdomen was soft nontender without masses organomegaly she was significantly obese. I palpated her cervical thoracic and lumbar spine and she did not complain of pain. Examination of her lower extremities shows that she has some swelling shortness external rotation right lower extremity. I palpated her right knee over medial and lateral collateral ligaments patellofemoral joint and there was no pain. Both feet are very sensitive with a confluent rosacea and they are very very cold. Results - Ortho Labs 08/27/24 12:35 08/27/24 12:35 Labs: Short CBC 08/27/24 Range/Units 12:35 WBC 7.5 (3.6-11.0) Thou/mm3 Hgb 12.8 (12.0-16.0) g/dL Hct 37.9 (36.0-46.0) % Plt Count 308 D (140-440) Thou/mm3 BMP 08/27/24 12:35 Sodium 135 L Potassium 3.9 Chloride 100 Carbon Dioxide 26.8 BUN 9 Creatinine 0.4 L Glucose 112 H Calcium 9.4 Liver Function 03/13/25 Range/Units 12:35 Total Bilirubin 0.3 (0.3-1.2) mg/dL AST 22 (0-34) U/L ALT 23 (10-49) U/L Alkaline Phosphatase 124 H (46-116) U/L Albumin 3.9 (3.4-4.8) gm/dL Urine 08/27/24 Range/Units 13:27 Urine Color Lt-Yellow (Lt Yel-Yel) Urine Clarity Clear (Clear/Hazy) Urine pH 6.5 (5.0-7.0) Ur Specific [place] 1.007 (1.001-1.035) Urine Protein Negative (Neg - Trace) Urine Glucose (UA) Negative (Negative) Hemoglobin 12.8, electrolytes show a sodium of 135 slightly low. Urine unremarkable. Liver enzymes unremarkable Assessment & Plan Additional Assessment Additional comments: X-rays show a complex peritrochanteric subtrochanteric hip fracture. There is osteopenia. Plan Need Cardiologic evaluation. Consult to neurology on her medications. Will try to get a hold of family. She is very high risk. She is nonambulatory. At this point I am strongly considering conservative management. High risk for surgery. Need vascular evaluation. She does not need to be n.p.o. 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 For this reason consult with GI would be indicated prior to any surgical intervention.
--- NOTE | 2024-08-27 22:36 | XR_ITS ---
Examination: CT pelvis without intravenous contrast. CT right hip without intravenous contrast 2-D sagittal and coronal reconstructions. Date and time of exam:August 27, 2024, 11:37 PM Indications: Patient fell today with injury to the hip, pain CTDI: vol (mGy) :8.74 DLP: (mGycm) : 299 Technique: Multiple 3 mm axial sections of the pelvis right hip have been obtained with the 64 slice high resolution scanner. 2-D sagittal and coronal reconstructions. Low dose protocols were performed. One or more of the following dose reduction techniques were used; automated exposure control, adjustment of the mA and/or KV according to patient size, use of iterative reconstruction technique. Findings: Acute comminuted intertrochanteric fracture right hip At least 19 mm offset of the main fracture fragments No hip dislocation No acute fracture left hip Bones of the pelvis intact Urinary bladder intact Impression: Acute comminuted intertrochanteric fracture right hip
--- NOTE | 2024-08-27 23:35 | ESHP_ITS ---
<Statement entered by Cherry Acosta MD - 08/28/24 04:29> 69-year-old female with cerebral palsy with subsequent developmental delay and seizures who is bedbound who comes for evaluation of generalized tonic-clonic seizures and imaging noted patient to have acute intertrochanteric fracture of the right hip. As a result, orthopedic was consulted and recommended admission. Furthermore, as for generalized tonic-clonic seizure, plan to continue Keppra 1500 mg twice daily, carbamazepine 200 mg twice daily and monitor closely. Patient continues to have seizures on admission plan to consult neurology. Of note, patient also noted to have a pancreatic mass which and was pending ultrasound-guided biopsy however has not been done for which we will consider GI consult however likely will need outpatient workup.I reviewed above note and agree with findings and plans. I have also personally examined the patient with medicine team and went over assessment and plan with medical team including management retail intern and resident physician. Documentation for date of: 08/27/24 HPI History of Present Illness History of present illness: HPI is limited as patient is poor historian. History was obtained through chart review Emmanuelle is a 69 y/o female with PMHx of cerebral palsy, developmental delay, hypertension, seizures, bedbound since 2020 (takes Eliquis DVT prophylaxis) and urinary retention who comes in for evaluation of a witnessed tonic-clonic seizure, lasting for 30 seconds. Pt lives in a nursing home and had a seizure in which EMS was called for. Pt did not fall, however, there was concern for fracture as pt complained of R hip pain. Of note, pt was recently in the hospital for evaluation of UTI. At the time of evaluation, patient denies any chest pain, shortness of breath, nausea, vomiting, hip pain or leg pain. ED course: She came to the ED with a temperature of 112/65, heart rate of 60, respiratory of 18, temperature of 98, saturating 96% on room air. She was worked up and was found to have a sodium 135, potassium 3.9, white count 7.5, hemoglobin 13, BUN/creatinine 9 and 0.4 respectively, platelets 308. Urinalysis shows leukocyte Esterase, 80 white blood cells, and rare bacteria. Femur x-ray was done which showed acute displaced intertrochanteric right hip fracture. Right knee was unremarkable. She was given 1L bolus of NS, and Macrobid x 1. Medicine was consulted in addition to orthopedic surgery for further evaluation of right hip fracture. Past medical history: As above Surgical history: No known surgeries Allergies: Theophylline, promethazine, amoxicillin, ciprofloxacin Meds: Tylenol, milk of mag, Dulcolax, carbamazepine, Eliquis 5, Lasix 20 mg (as needed for edema) losartan, Keppra, hydralazine, metoprolol succinate 25, omeprazole 20 mg, simvastatin 20 mg, Keppra 1500 mg twice daily Family History: No family history on patient, patient is conserved Social history: Has lived in this moment since 2020, used to be ambulatory, however is mostly bedbound after a fall. She is able to get up at times. No history history of drug use, alcohol use or smoking history. Unsure if patient was born in [place] and is not involved at this point. Review of Systems Review of Systems Narrative Review of Systems: Constitutional: No fever, chills, fatigue, weakness, weight loss HEENT: No eye pain, vision loss, ear pain, hearing loss, dysphagia, Cardiovascular: No chest pain, palpitations, edema, pain with walking Respiratory: No cough, shortness of breath, wheezing GI: No NVD, abdominal pain, constipation, blood in stool, loss of appetite, heartburn Extremities: No presence of pitting edema MSK: No back pain, joint pain, joint swelling Neuro: No dizziness, numbness, weakness, headaches, seizures, tremors Psych: No anxiety, depression Exam Vital Signs Temp Pulse Resp BP Pulse Ox O2 Del Method 98 F 67 18 171/80 H 95 Room Air 08/27/24 20:08 08/27/24 20:08 08/27/24 20:08 08/27/24 20:08 08/27/24 20:08 08/27/24 20:08 Narrative Exam General: AAOx2, poor historian, developmentally delayed, does not look at you when speaking to her, obese, bed-bound HEENT: Dry mucous membranes, poor dentition, inward deviation of eyes bilat, Cardiovascular: S1, S2, radial pulses +2 bilat, RRR Pulmonary: No cough, no wheezing, CTAB bilat GI: no tenderness to palpitation in lower abdomen, no guarding, rigidity, rebound tenderness or distension MSK: R hip TTP Extremities: No presence of trace or pitting edema in lower extremities bilaterally, faint dorsalis pedis pulses bilat Neuro: AAO23, no focal motor or sensory deficits in the UE or LE bilat Psych: Slightly cooperative Results: Labs 08/27/24 12:35 08/27/24 12:35 Labs: Short CBC 08/27/24 Range/Units 12:35 WBC 7.5 (3.6-11.0) Thou/mm3 Hgb 12.8 (12.0-16.0) g/dL Hct 37.9 (36.0-46.0) % Plt Count 308 D (140-440) Thou/mm3 BMP 08/27/24 12:35 Sodium 135 L Potassium 3.9 Chloride 100 Carbon Dioxide 26.8 BUN 9 Creatinine 0.4 L Glucose 112 H Calcium 9.4 Liver Function 08/27/24 Range/Units 12:35 Total Bilirubin 0.3 (0.3-1.2) mg/dL AST 22 (0-34) U/L ALT 23 (10-49) U/L Alkaline Phosphatase 124 H (46-116) U/L Albumin 3.9 (3.4-4.8) gm/dL Urine 08/27/24 Range/Units 13:27 Urine Color Lt-Yellow (Lt Yel-Yel) Urine Clarity Clear (Clear/Hazy) Urine pH 6.5 (5.0-7.0) Ur Specific [place] 1.007 (1.001-1.035) Urine Protein Negative (Neg - Trace) Urine Glucose (UA) Negative (Negative) Quality Measures Quality Measures none Advance care planning discussed with:: patient Medications Home Medications and Allergies Home Medications ?Medication ?Instructions ?Recorded ?Confirmed ?Type carbamazepine 200 mg tablet 200 mg PO BID \ days ##0 1 08/14/24 History (Tegretol) furosemide 40 mg tablet (Lasix) 40 mg PO QAM ##0 04/0408/14/24 History simvastatin 20 mg tablet 20 mg PO HS ##0 04/04/09 History docusate sodium 100 mg capsule 100 mg PO BID ##0 06/0508/14/24 History levetiracetam 500 mg tablet 1,500 mg PO BID Seizures # #0 06/05/17 08/14/24 History potassium chloride 8 mEq 8 meq PO QAM 02/23/20 History tablet,extended release acetaminophen 325 mg tablet 650 mg PO Q4H PRN temp 101 *F 04/21/20 08/14/24 History bisacodyl 10 mg rectal suppository 10 mg CA PRN PRN Co nstipation 04/21/20 08/14/24 History calcium carbonate 600 mg PO BID 04/21/2008/14 History cholecalciferol (vitamin D3) 10 400 unit PO QDAY 04/2108/14/24 History mcg (400 unit) tablet (Vitamin D3) ferrous sulfate 325 mg (65 mg 325 mg PO QDAY 04/21/20 08/14/24 History iron) tablet ketoconazole 2 % topical cream 1 applic topical PRN CA N Rash 04/21/20 08/14/24 History lactulose 10 gram/15 mL oral 30 ml PO QDAY 04/21/20 History solution metoprolol succinate 25 mg 25 mg PO QDAY 12/31/2307/19 History tablet,extended release 24 hr omeprazole 20 mg tablet,delayed 20 mg PO QDAY 12/31/23 08/14/24 History release acetaminophen 500 mg tablet 1,000 mg PO Q4H PRN pain 0 08/14/24 08/14/24 History ascorbic acid (vitamin C) 500 mg 500 mg PO QDAY 08/14/24 History tablet (Vitamin C) dextromethorphan-guaifenesin 10 10 ml PO Q6H PRN cough /congestion 08/14/24 08/14/24 History mg-100 mg/5 mL oral syrup diltiazem HCl 180 mg 180 mg PO HS 08/14/24 History capsule,extended release 24 hr docusate sodium 250 mg capsule 250 mg PO BID 08/14/24 08/14/24 History ipratropium 0.5 mg-albuterol 3 mg 3 ml inhalation Q4H PRN 08/14/24 08/14/24 History (2.5 mg base)/3 mL nebulization respiratory relief/con gestion soln losartan 100 1 tab PO QDAY 08/14/2408/14 History mg-hydrochlorothiazide 12.5 mg tablet (Hyzaar) metoprolol succinate 50 mg 50 mg PO QDAY 08/14/2407/19 History tablet,extended release 24 hr multivitamin,ao-lpxa-Ds-FA-min 1 tab PO QDAY nutrition supplement 08/14/24 08/14/24 History triamcinolone acetonide 0.1 % 1 applic topical PRN PRN rash 08/14/24 08/14/24 History topical cream Allergies Allergy/AdvReac Type Severity Reaction Status Date / Time theophylline Allergy Intermediate unknown Verified 08/14/24 03:48 promethazine Allergy Unknown UNKNOWN Verified 08/14/24 03:48 amoxicillin Allergy Verified 08/14/24 03:48 ciprofloxacin (From Cipro) Allergy Verified 08/14/24 03:48 Visit Medications Acetaminophen (Acetaminophen 325 Mg Tablet) 650 mg PO Q6H PRN PRN Reason: Fever >100 or pain 1-3 Stop: 09/26/24 23:23 Hydrocodone Bitart/Acetaminophen (Hydrocodone/Apap 5/325 Tablet) 1 tab PO Q4HR PRN PRN Reason: PAIN SCALE 4-6 (Moderate Stop: 09/01/24 23:29 Ondansetron HCl (Ondansetron Inj 2 Mg/Ml Inj 2 Ml) 4 mg IV Q6H PRN; Protocol PRN Reason: NAUSEA OR VOMITING Stop: 09/26/24 23:23 Pantoprazole Sodium (Pantoprazole Inj 40 Mg Vial) 40 mg IVP QDAY BHARAT Stop: 09/27/24 08:59 Discontinued Medications Heparin Sodium (Porcine) (Heparin Sod Inj 5000 Unit/Ml Vial) 5,000 unit SC Q12H BHARAT Stop: 09/10/24 23:29 Sodium Chloride (Ns) 1,000 mls @ 999 mls/hr IV .Q1H1M ONE Stop: 08/27/24 13:47 Last Infusion: 08/27/24 17:31 Dose: Infused Morphine Sulfate (Morphine Sulf Inj 10 Mg/Ml Vial) 4 mg IVP X1 ONE Stop: 08/27/24 21:51 Last Admin: 08/27/24 22:42 Dose: Not Given Nitrofurantoin Macrocrystals (Nitrofurantoin Macro 100 Mg Capsule) 100 mg PO X1 ONE Stop: 08/27/24 16:04 Last Admin: 08/27/24 17:40 Dose: 100 mg Assessment & Plan Plan Assessment Emmanuelle is a 69 y/o female with PMHx of cerebral palsy, developmental delay, hypertension, seizures, bedbound since 2020 (takes Eliquis DVT prophylaxis) and urinary retention who is admitted for acute intertrochanteric fracture of R hip. #Acute intertrochanteric fracture of the right hip secondary to #Hx of seizures Seen on femur x-ray Knee x-ray unremarkable Follow-up Ortho recs Patient may need cardiac clearance Patient is bedbound Pt had witnessed seizure, could be reason of hip fracture as pt did not fall Echo done in July 2024 shows: Poor quality images. Overall suboptimal study Normal LV size and function. Estimated LVEF 55 to 60%. Diastolic function indeterminate Normal RV size and function. Mild TR. Mild aortic valve sclerosis without stenosis Plan: ? Ortho consult, appreciate recs ? Cardiology consulted, appreciate recs ? Follow up US arterial LE bialt ? Resumed home Keppra 1500 mg twice daily ? Resumed home carbamazepine 200 mg twice daily ? Pain control with Tylenol and [place] 5 ? Seizure precautions ? Neuro checks q4h #? Asymptomatic bacteriuria #Hx of Urinary retention Hx of ESBL E coli LE, pyuria and bacteria seen on UA, however pt is unable to communicate if she is symptomatic at this time Considering pt does not appear to be septic, no white count, no fever, we will hold on treating at this time She was given Macrobid x1 in the ER If urine culture returns to show infection, we will treat Plan: ? Hold on treating at this time ? Follow up urine culture ? 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 Consider GI consult ? Consider ultrasound-guided biopsy #History of hypertension #Hypotension #History of hyperlipidemia Blood pressure was measured to 70 systolic at home [employer]er Dr. Jennings Plan: ? Follow up lipid panel ? Continue with home Cardizem 180 CD #Bedbound #History of cerebral palsy #Developmental delay Patient is conserved, takes Eliquis she is mainly bedbound for DVT prophylaxis Plan: ?Will consider social media director referral ?Continue home Eliquis 2.5 mg twice daily #Health Maintenance Disposition: MedSurg DVT prophylaxis: Eliquis 2.5 mg BID GI prophylaxis: Protonix Diet: Cardiac CODE STATUS: Full code Patient seen and care discussed with my attending physician, Dr. Karla Sanches, PGY-1
[2024-08-28] VITALS (8 sets, daily range): BP systolic 134–191; BP diastolic 61–90; PULSE 68–91; RESP 16–19; TEMP 36.4–37.6; O2SAT 93–96
--- NOTE | 2024-08-28 | XR_ITS ---
Examination: Arterial duplex lower extremity study, right Date and time of exam: August 28, 2024, 0053 hrs. Indications: Right hip fracture August 27, 2024, leg pain and swelling Findings: Duplex sonographic imaging of the lower extremity arteries using B-mode/Fish scale imaging and Doppler spectral analysis and color flow. Ankle brachial indices have been recorded. Right common femoral artery demonstrates triphasic flow. Right superficial femoral artery demonstrates triphasic flow. Right popliteal artery demonstrates triphasic flow. Right posterior tibial artery demonstrated triphasic flow. Right ankle/brachial index is 1.9. Impression: Abnormal ankle-brachial index consistent with obstructive arterial disease Consider correlation with CTA abdominal aorta iliofemoral runoff post intravenous contrast
--- NOTE | 2024-08-28 00:20 | PC.NURSE ---
Called house sup for carbamazepine
[2024-08-28] MEDS: APIXABAN 2.5 MG TABLET PO ×2 (01:18→09:48)
[2024-08-28] MEDS: levETIRAcetam 250 MG TABLET 1500 MG PO ×3 (01:19→20:19)
--- NOTE | 2024-08-28 02:06 | PRELIM_ITS ---
Right lower extremity arterial Doppler ultrasound. August 28, 2024 0053 hours Clinical history: Diminished pulses. Comparison: No prior study is available for comparison. Findings: Fish scale, color and spectral Doppler imaging of the right lower extremity arteries were performed. The common femoral, proximal, mid and distal (superficial) femoral and popliteal arteries demonstrate normal triphasic flow pattern, velocities and good color flow. No evidence of arterial occlusion or thrombus. The posterior tibial, peroneal and dorsal pedis arteries are also unremarkable. Impression: No hemodynamically significant stenosis in the right lower extremity arteries. Report Electronically Signed By: Lewis Leo 08/28/2024 2:05:39 AM [EST]
[2024-08-28] MEDS: carBAMazepine 100 MG CHEW 200 MG PO ×2 (02:41→09:48)
--- NOTE | 2024-08-28 02:48 | PC.NURSE ---
Covering for primary RN's lunch break. Notified admitting MD Dr. Sanches about blood pressure reading of 185 systolic. Verbal order received to give pt cardizem cd 180mg PO x1 now - see AUG.
[2024-08-28] MEDS: DILTIAZEM CD 180 MG CAPCR PO ×2 (04:08→20:20)
[2024-08-28 06:02] LABS: Basophils % (Auto) 0 % (0-2.5); Eosinophils % (Auto) 0 % (0-10); Hemoglobin 11.7 g/dL (12.0-16.0); Immature Granulocytes % (Auto) 0 % (0-0); Immature Granulocytes Auto 0.03 Thou/mm3 (0.00-0.00); Lymphocytes # (Auto) 0.9 Thou/mm3 (1.0-4.8); Lymphocytes % (Auto) 7 % (10-50); Mean Corpuscular HGB Conc 34.4 g/dl (31.0-37.0); Mean Corpuscular Hemoglobin 31.3 pg (25.0-35.0); Mean Corpuscular Volume 91 fL (80-100); Monocytes % (Auto) 9 % (0-12); Neutrophils # (Auto) 9.9 Thou/mm3 (1.8-7.7); Neutrophils % (Auto) 83 % (37-80); Nucleated Red Blood Cell % 0 /100 WBC (0); Platelet Count 290 Thou/mm3 (140-440); RDW Standard Deviation 42.6 fL (36.4-46.3); Red Blood Count 3.74 Miln/mm3 (4.00-5.20); White Blood Count 11.8 Thou/mm3 (3.6-11.0)
[2024-08-28 06:17] LABS: INR 1.1 (0.9-1.3); Partial Thromboplastin Time 30.1 Seconds (22.0-36.0); Prothrombin Time 12.1 Seconds (9.0-12.2)
[2024-08-28 06:34] LABS: Alanine Aminotransferase 17 U/L (10-49); Albumin, Serum 3.6 gm/dL (3.4-4.8); Albumin/Globulin Ratio 1.5 (1.2-2.2); Alkaline Phosphatase 116 U/L (46-116); Anion Gap 10 (7-16); Aspartate Amino Transferase 18 U/L (0-34); BUN/Creatinine Ratio 33 Ratio (12-20); Bilirubin,Total 0.6 mg/dL (0.3-1.2); Blood Urea Nitrogen 10 mg/dL (9-23); Calcium 8.5 mg/dL (8.3-10.6); Calcium (Corrected) 8.8 mg/dL (8.5-10.1); Carbon Dioxide 24.9 mMol/L (20.0-31.0); Cardiac Risk Estimate 2.8 RATIO (3.7-5.6); Chloride 101 mMol/L (98-107); Cholesterol 135 mg/dL (132-200); Creatinine (Component) 0.3 mg/dL (0.6-1.3); Estimated Creatinine Clearance 180.4 mL/min (>60); Globulin 2.4 gm/dL (2.3-3.5); Glucose 119 mg/dL (74-106); HDL Cholesterol 49 mg/dL (40-60); LDL Cholesterol,Calculated 67 mg/dL (0-130); Magnesium 1.8 mg/dL (1.6-2.6); Osmolality,Calculated 271 (275-295); Phosphorous 3.1 mg/dL (2.4-5.1); Potassium 3.8 mMol/L (3.4-5.1); Sodium 136 mMol/L (136-145); Triglycerides 94 mg/dL (30-150); eGFR > 60 See Note
[2024-08-28] MEDS: PANTOPRAZOLE INJ 40 MG VIAL IVP (09:40)
[2024-08-28] MEDS: Magnesium Sulfate 4 GM Ivpb 4 GM/50 ML BAG IV (09:41)
[2024-08-28] MEDS: TAMSULOSIN HCL 0.4 MG CAPSULE PO (09:48)
--- NOTE | 2024-08-28 10:44 | PC.SS ---
Follow up note: On IV antibiotic, Ortho is consulting, and Cardio is following.
--- NOTE | 2024-08-28 13:51 | ESPR_ITS ---
<Statement entered by Louise James MD - 08/29/24 07:09> Patient was seen and examined by me personally. I have directly supervised and reviewed documentation by the team resident and agree with its findings with any exceptions or additional findings as below. Plan of care was discussed with the attending, Dr. Burns. Overnight admission for R hip fracture, patient is developmentally delayed but is interactable and answers some questions with short response. Ortho Dr. Mancia is consulted and requests Cardiac and GI evaluations. Patient herself expresses pain upon palpation of the right hip. Will touch base with Dr. Arango, patient's decision-maker, for surgery. Neuro is consulted as patient has initially been brought in for breakthrough seizure, patient is on home Keppra 1500 mg twice daily and carbamazepine 300 mg twice daily. Louise James, PGY-2 Documentation for date of: 08/28/24 Subjective Subjective Interval history: 08/28/2024: Overnight admission for a 69-year-old female with history of developmental delay, cerebral palsy and history of seizures presenting from a [facility] with a witnessed 30 second seizure. In the ED, patient was found to have a right hip intertrochanteric fracture which was confirmed with imaging studies. Dr Mancia was consulted who now requests cardiac and GI clearance as the patient is high risk for surgery. GI is being consulted because the patient does have a pancreatic mass with reports that it might not be a malignant neoplasm as noted from previous documentation. Neurology is consulted for this breakthrough seizures. We will contact Dr. Arango who is the patient's conservator regarding need for surgical intervention. Patient is bedbound on baseline and verbal; moreover, on examination patient emphatically says no to surgery. Exam Vital Signs Temp Pulse Resp BP Pulse Ox O2 Del Method 98.2 F 77 18 143/61 H 93 L Room Air 08/28/24 12:08/28/24 12:08/28/24 12:08/28/24 12:08/28/24 12:08/28/24 12:00 Narrative Exam Physical exam: General: Awake, developmentally delayed, verbal HEENT: Dry mucous membranes, poor dentition, inward deviation of eyes bilat, Cardiovascular: S1, S2, radial pulses +2 bilat, RRR Pulmonary: No cough, no wheezing, CTAB bilat GI: no tenderness to palpitation in lower abdomen, no guarding, rigidity, rebound tenderness or distension MSK: R hip TTP Extremities: No presence of trace or pitting edema in lower extremities bilaterally, faint dorsalis pedis pulses bilat Neuro: Oriented x 3, no focal motor or sensory deficits in the UE or LE bilat Objective Labs 08/29/24 04:56 08/29/24 04:56 Labs: Laboratory Results - last 24 hr 08/28/24 04:49 WBC 11.8 H D RBC 3.74 L Hgb 11.7 L Hct 34.0 L MCV 91 MCH 31.3 MCHC 34.4 RDW Std Deviation 42.6 Plt Count 290 Neut % (Auto) 83 H Lymph % (Auto) 7 L Love % (Auto) 9 Eos % (Auto) 0 Baso % (Auto) 0 Neut # (Auto) 9.9 H Lymph # (Auto) 0.9 L Love # (Auto) 1.0 H Eos # (Auto) 0.0 Baso # (Auto) 0.0 Immature Gran # (Auto) 0.03 H Absolute Nucleated RBC 0.00 Immature Gran % 0 Nucleated RBC % 0 PT 12.1 INR 1.1 APTT 30.1 Sodium 136 Potassium 3.8 Chloride 101 Carbon Dioxide 24.9 Anion Gap 10 BUN 10 Creatinine 0.3 L Estim Creat Clear Calc 180.4 eGFR > 60 BUN/Creatinine Ratio 33 H Glucose 119 H Calculated Osmolality 271 L Calcium 8.5 Corrected Calcium 8.8 Phosphorus 3.1 Magnesium 1.8 Total Bilirubin 0.6 AST 18 ALT 17 Alkaline Phosphatase 116 Total Protein 6.0 Albumin 3.6 Globulin 2.4 Albumin/Globulin Ratio 1.5 Triglycerides 94 Cholesterol 135 LDL Cholesterol, Calc 67 HDL Cholesterol 49 Cholesterol/HDL Ratio 2.8 L Quality Measures Quality Measures none Advance care planning discussed with:: legal surragate Assessment & Plan Assessment Current Active Medications: Generic Name Dose Route Start Last Admin Trade Name Freq PRN Reason Stop Dose Admin Acetaminophen 650 mg 08/27/24 23:24 Acetaminophen 325 Mg Tablet PO 09/26/24 23:23 Q6H PRN Fever >100 or pain 1-3 Hydrocodone Bitart/Acetaminophen 1 tab 08/27/24 23:30 Hydrocodone/Apap 5/325 Tablet PO 09/01/24 23:29 Q4HR PRN PAIN SCALE 4-6 (Moderate Apixaban 2.5 mg 08/27/24 23:45 08/28/24 09:48 Apixaban 2.5 Mg Tablet PO 09/17/24 23:44 2.5 mg BID BHARAT Administration Carbamazepine 200 mg 08/27/24 23:45 08/28/24 09:48 Carbamazepine 100 Mg Chew PO 09/26/24 23:44 200 mg BID BHARAT Administration Diltiazem HCl 180 mg 08/28/24 21:00 Diltiazem Cd 180 Mg Capcr PO 09/27/24 20:59 HS BHARAT Levetiracetam 1,500 mg 08/27/24 23:45 08/28/24 09:47 Levetiracetam 250 Mg Tablet PO 09/26/24 23:44 1,500 mg BID BHARAT Administration Ondansetron HCl 4 mg 08/27/24 23:24 Ondansetron Inj 2 Mg/Ml Inj 2 Ml IV 09/26/24 23:23 Q6H PRN NAUSEA OR VOMITING Protocol Pantoprazole Sodium 40 mg 08/28/24 09:00 08/28/24 09:40 Pantoprazole Inj 40 Mg Vial IVP 09/27/24 08:59 40 mg QDAY BHARAT Administration Tamsulosin HCl 0.4 mg 08/28/24 09:00 08/28/24 09:48 Tamsulosin Hcl 0.4 Mg Capsule PO 09/27/24 08:59 0.4 mg QDAY BHARAT Administration Plan 69 y/o female with PMHx of cerebral palsy, developmental delay, hypertension, seizures, bedbound since 2020 (takes Eliquis DVT prophylaxis) and urinary retention who is admitted for acute intertrochanteric fracture of R hip. #Acute intertrochanteric fracture of the right hip #Hx of seizures Patient is bedbound and is presenting from a shelter is under conservatorship by Dr. Arango Apparently patient had a witnessed seizure lasting 30 seconds and presented to the ED Patient is on home Keppra 1500 mg twice daily and carbamazepine 300 mg twice daily Femur x-ray and CT of the hip confirm acute intertrochanteric fracture of the right hip Dr Mancia, orthopedic surgery, consulted in the ED Orthopedic surgery is requesting cardiac and GI clearance as the patient is high risk for surgery Echo done in July 2024 shows: Normal LV size and function. Estimated LVEF 55 to 60%. Diastolic function indeterminate. Normal RV size and function. Mild TR. Mild aortic valve sclerosis without stenosis Arterial duplex ultrasound ordered by orthopedic surgery confirms degree of PAD, radiology recommends CTA Plan: Ortho consult, appreciate recs Cardiology consulted, appreciate recs Continue home seizure medications, neurology recommends IV Ativan for breakthrough seizures Pain controlled Seizure precautions Neuro checks q4h Will contact Dr. 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 Jennings Triglycerides 94, cholesterol 135, LDL 67, HDL 49 Plan: Continue with home Cardizem 180 CD #Bedbound #History of cerebral palsy #Developmental delay Patient is conserved, takes Eliquis she is mainly bedbound for DVT prophylaxis Dr. Arango is the patient's conservator Plan: Holding Eliquis 2.5 mg twice daily Will contact Dr. Arango regarding need for surgical intervention Hospital Management: Diet: Cardiac, dysphagia II Lines: PIV Bowel: Senna DVT prophylaxis: Eliquis 2.5 mg BID GI prophylaxis: Protonix Dispo: Pending surgical clearance for trochanteric hip fracture repair versus pain management and conservative treatment based on what conservator wants to do. Code: Full Patient seen and assessed with attending Dr. Burns and senior resident Dr. Erika Reynoso, PGY-1 Attending Provider Attestation/Addendum I reviewed labs, imaging, EKG, home medications and prior available records. Face to face evaluation was performed by me. I have personally examined the patient and discussed assessment and plan with the IM team. I reviewed the resident note and agree with the plan with exceptions as below. Right intertrochanteric hip fracture Seizure disorder Developmental delay/cerebral palsy Pancreatic mass Will touch base with Dr. Arango as the patient is refusing the surgery Management of pain as needed Consulted GI for pancreatic mass workup prior to OR Consulted neurology in the setting of seizure episode. Seizure precautions. Resumed home antiepileptic medications Consulted orthopedic surgery who requested cardiac clearance
--- NOTE | 2024-08-28 14:30 | PD.RESCONSUL ---
HPI Data of Consult Requesting Physician: Maikel Burns MD Admitting Provider: Cherry Acosta MD Attending Provider: Maikel Burns MD Primary Care Provider: Physician No Primary/Family Consult Narrative History of present illness: Patient is a 69-year-old female with PMHx of cerebral palsy, developmental delay, hypertension, seizures, bedbound since 2020 (takes Eliquis DVT prophylaxis) and urinary retention who was brought in due to seizure-like activity. Patient noted to have acute fracture and was admitted for further management. Neurology consulted for management of seizures. Patient seen and assessed at bedside this morning resting comfortably in bed. RN at bedside who manages patient snf states that for the past 2 weeks patient has had 2 breakthrough seizures although taking both carbamazepine and Keppra. cc:: cc: Maikel Burns MD Exam Vital Signs Temp Pulse Resp BP Pulse Ox O2 Del Method 98.2 F 77 18 143/61 H 93 L Room Air 08/28/24 12:00 08/28/24 12:00 08/28/24 12:00 08/28/24 12:00 08/28/24 12:00 08/28/24 12:00 Narrative Exam General: AAOx2, developmentally delayed, resting comfortably in bed. Bruising on nose and right forehead. Cardiovascular: Regular rate and rhythm, no murmurs, rubs, or gallops. Pulmonary: Chest clear to auscultation bilaterally. GI: Nontender to palpitation in lower abdomen, no guarding, active bowel sounds. Extremities: No edema noted lower extremities. Neuro: AAOx2, no focal motor or sensory deficits in the UE or LE bilat Results Labs 08/29/24 04:56 08/29/24 04:56 Labs: Short CBC 08/28/24 Range/Units 04:49 WBC 11.8 H D (3.6-11.0) Thou/mm3 Hgb 11.7 L (12.0-16.0) g/dL Hct 34.0 L (36.0-46.0) % Plt Count 290 (140-440) Thou/mm3 BMP 08/28/24 04:49 Sodium 136 Potassium 3.8 Chloride 101 Carbon Dioxide 24.9 BUN 10 Creatinine 0.3 L Glucose 119 H Calcium 8.5 Liver Function 08/28/24 Range/Units 04:49 Total Bilirubin 0.6 (0.3-1.2) mg/dL AST 18 (0-34) U/L ALT 17 (10-49) U/L Alkaline Phosphatase 116 (46-116) U/L Albumin 3.6 (3.4-4.8) gm/dL Quality Measures Quality Measures none Advance care planning discussed with:: legal surragate Medications Home Medications and Allergies Home Medications ?Medication ?Instructions ?Recorded ?Confirmed ?Type carbamazepine 200 mg tablet 200 mg PO BID \ days ##0 04/04/09 08/14/24 History (Tegretol) furosemide 40 mg tablet (Lasix) 40 mg PO QAM ##0 04/04/09 08/14/24 History simvastatin 20 mg tablet 20 mg PO HS ##0 04/04/09 08/14/24 History docusate sodium 100 mg capsule 100 mg PO BID ##0 06/05/17 08/14/24 History levetiracetam 500 mg tablet 1,500 mg PO BID Seizures ##0 06/05/17 08/14/24 History potassium chloride 8 mEq 8 meq PO QAM 02/23/20 08/14/24 History tablet,extended release acetaminophen 325 mg tablet 650 mg PO Q4H PRN temp 101 *F 04/21/20 08/14/24 History bisacodyl 10 mg rectal suppository 10 mg UT PRN PRN Constipation 04/21/20 08/14/24 History calcium carbonate 600 mg PO BID 04/21/20 08/14/24 History cholecalciferol (vitamin D3) 10 400 unit PO QDAY 04/21/20 08/14/24 History mcg (400 unit) tablet (Vitamin D3) ferrous sulfate 325 mg (65 mg 325 mg PO QDAY 04/21/20 08/14/24 History iron) tablet ketoconazole 2 % topical cream 1 applic topical PRN PRN Rash 04/21/20 08/14/24 History lactulose 10 gram/15 mL oral 30 ml PO QDAY 04/21/20 08/14/24 History solution metoprolol succinate 25 mg 25 mg PO QDAY 12/31/23 08/14/24 History tablet,extended release 24 hr omeprazole 20 mg tablet,delayed 20 mg PO QDAY 12/31/23 08/14/24 History release acetaminophen 500 mg tablet 1,000 mg PO Q4H PRN pain 02/28/25 02/28/25 History ascorbic acid (vitamin C) 500 mg 500 mg PO QDAY 08/14/24 08/14/24 History tablet (Vitamin C) dextromethorphan-guaifenesin 10 10 ml PO Q6H PRN cough/congestion 08/14/24 08/14/24 History mg-100 mg/5 mL oral syrup diltiazem HCl 180 mg 180 mg PO HS 08/14/24 08/14/24 History capsule,extended release 24 hr docusate sodium 250 mg capsule 250 mg PO BID 08/14/24 08/14/24 History ipratropium 0.5 mg-albuterol 3 mg 3 ml inhalation Q4H PRN 08/14/24 08/14/24 History (2.5 mg base)/3 mL nebulization respiratory relief/congestion soln losartan 100 1 tab PO QDAY 08/14/24 08/14/24 History mg-hydrochlorothiazide 12.5 mg tablet (Hyzaar) metoprolol succinate 50 mg 50 mg PO QDAY 08/14/24 08/14/24 History tablet,extended release 24 hr multivitamin,qd-gtga-Dk-FA-min 1 tab PO QDAY nutrition supplement 08/14/24 08/14/24 History triamcinolone acetonide 0.1 % 1 applic topical PRN PRN rash 08/14/24 08/14/24 History topical cream Allergies Allergy/AdvReac Type Severity Reaction Status Date / Time theophylline Allergy Intermediate unknown Verified 08/14/24 03:48 promethazine Allergy Unknown UNKNOWN Verified 08/14/24 03:48 amoxicillin Allergy Verified 08/14/24 03:48 ciprofloxacin (From Cipro) Allergy Verified 08/14/24 03:48 Visit Medications Acetaminophen (Acetaminophen 325 Mg Tablet) 650 mg PO Q6H PRN PRN Reason: Fever >100 or pain 1-3 Stop: 09/26/24 23:23 Hydrocodone Bitart/Acetaminophen (Hydrocodone/Apap 5/325 Tablet) 1 tab PO Q4HR PRN PRN Reason: PAIN SCALE 4-6 (Moderate Stop: 09/01/24 23:29 Apixaban (Apixaban 2.5 Mg Tablet) 2.5 mg PO BID [facility] Stop: 09/17/24 23:44 Last Admin: 08/28/24 09:48 Dose: 2.5 mg Carbamazepine (Carbamazepine 100 Mg Chew) 200 mg PO BID [facility] Stop: 09/26/24 23:44 Last Admin: 08/28/24 09:48 Dose: 200 mg Diltiazem HCl (Diltiazem Cd 180 Mg Capcr) 180 mg PO HS [facility] Stop: 09/27/24 20:59 Levetiracetam (Levetiracetam 250 Mg Tablet) 1,500 mg PO BID [facility] Stop: 09/26/24 23:44 Last Admin: 08/28/24 09:47 Dose: 1,500 mg Ondansetron HCl (Ondansetron Inj 2 Mg/Ml Inj 2 Ml) 4 mg IV Q6H PRN; Protocol PRN Reason: NAUSEA OR VOMITING Stop: 09/26/24 23:23 Pantoprazole Sodium (Pantoprazole Inj 40 Mg Vial) 40 mg IVP QDAY [facility] Stop: 09/27/24 08:59 Last Admin: 08/28/24 09:40 Dose: 40 mg Tamsulosin HCl (Tamsulosin Hcl 0.4 Mg Capsule) 0.4 mg PO QDAY [facility] Stop: 09/27/24 08:59 Last Admin: 08/28/24 09:48 Dose: 0.4 mg Discontinued Medications Diltiazem HCl (Diltiazem Cd 180 Mg Capcr) 180 mg PO X1 ONE Stop: 08/28/24 03:01 Diltiazem HCl (Diltiazem Cd 180 Mg Capcr) 180 mg PO X1 ONE Stop: 08/28/24 02:48 Last Admin: 08/28/24 04:08 Dose: 180 mg Heparin Sodium (Porcine) (Heparin Sod Inj 5000 Unit/Ml Vial) 5,000 unit SC Q12H [facility] Stop: 09/10/24 23:29 Sodium Chloride (Ns) 1,000 mls @ 999 mls/hr IV .Q1H1M ONE Stop: 08/27/24 13:47 Last Infusion: 08/27/24 17:31 Dose: Infused Magnesium Sulfate (Magnesium Sulfate Ivpb) 4 gm in 50 mls @ 12.5 mls/hr IV X1 ONE Stop: 08/28/24 12:25 Last Admin: 08/28/24 09:41 Dose: 12.5 mls/hr Morphine Sulfate (Morphine Sulf Inj 10 Mg/Ml Vial) 4 mg IVP X1 ONE Stop: 08/27/24 21:51 Last Admin: 08/27/24 22:42 Dose: Not Given Nitrofurantoin Macrocrystals (Nitrofurantoin Macro 100 Mg Capsule) 100 mg PO X1 ONE Stop: 08/27/24 16:04 Last Admin: 08/27/24 17:40 Dose: 100 mg Assessment & Plan Plan Patient is a 69 y/o female with PMHx of cerebral palsy, developmental delay, hypertension, seizures, bedbound since 2020 (takes Eliquis DVT prophylaxis) and urinary retention who is admitted for acute intertrochanteric fracture of R hip. #History of cerebral palsy #History of seizures Will increase carbamazepine to 300 mg twice daily Will check carbamazepine level Continue with Keppra 1500 mg twice daily As needed benzo for breakthrough seizures #Acute intertrochanteric fracture of the right hip #Hx of Urinary retention #Pancreatic mass #History of hypertension #Hypotension #History of hyperlipidemia #Bedbound #History of cerebral palsy #Developmental delay Continue management per primary team Case discussed with attending Dr Shalini Clements MD PGY3 Attending Provider Attestation/Addendum I personally have seen and examined the patient at the bedside and I agree with resident findings, assessment and plan of care. Will continue with Keppra at current doses and increase the dose of the Tegretol to 300 mg twice a day. Will check on the Tegretol level
--- NOTE | 2024-08-28 14:45 | PC.SS ---
SS called [facility] office and spoke to Jes who states pt is not conserved.
[2024-08-28 14:59] LABS: Misc Send Out* See Sep Rpt
--- NOTE | 2024-08-28 15:02 | ESCONSULT_ITS ---
<Statement entered by Berhane Perdomo MD - 09/01/24 12:30> I personally examined the patient evaluated the cardiac risk for surgery patient has multiple medical problems clinically appears to be doing stable no cardiac decompensation no cardiac history is low cardiac risk for surgery proceed with surgery as scheduled if necessary all essential components of the consultation report is reviewed and agree with the treatment plan recommendation as documented by PGY 2 Dr.Quresh NEUMANN Data of Consult Requesting Physician: Maikel Burns MD Admitting Provider: Cherry Acosta MD Attending Provider: Maikel Burns MD Primary Care Provider: Physician No Primary/Family Consult Narrative History of present illness: Patient is a 69-year-old female, past medical history of developmental delay, cerebral palsy, history of seizures, patient is oriented to self and person but is only able to provide limited history, though she denies having a fall, though she has bruising on her nose and forehead, does not volunteer any information about how she hurt her hip. So the H&P completed from chart review, patient was found to have witnessed GTC seizures at the back of a van that she was riding in, and brought her to the emergency room, complaining of pain right hip. Imaging studies showed right hip intertrochanteric fracture, orthopedic surgeon Dr. Watkins was consulted for possible surgical intervention. Per orthopedic surgeon Dr. Watkins, cardiac and GI clearance clearance will be required prior to surgery as patient is high risk for surgery due to comorbidities. 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 Past medical history: As noted above. Allergy: Ciprofloxacin, promethazine, amoxicillin, Theophylline Medications: 1. carbamazepine 200mg bid 2. Keppra 1500 mg 3. Eliquis 2.5 mg 4. Lasix 20 mg as needed 5. losartan 100mg qday 6. metoprolol succinate 25 mg 7. diltiazem ER 180 mg Q 8. simvastatin 20 mg 9. Tamsulosin 0.4 mg cc:: cc: Maikel Burns MD Review of Systems Review of Systems Systems Reviewed: All systems reviewed, normal except as documented Past Medical History Past Medical History NEUROLOGIC: Positive Neurological Disorders, Seizures and Cerebral Palsy CARDIAC: Positive Peripheral Vascular Disease, Hypercholesterolemia, Edema and Hypertension; Negative Cardiac Disorders or Congestive Heart Failure RESPIRATORY: Negative Chronic Obstructive Pulmonary Disease (COPD) or Asthma GASTROINTESTINAL: Positive Gastrointestinal Disorders GENITOURINARY: Negative Genitourinary Disorders or Renal Disease MUSCULOSKELETAL: Positive Musculoskeletal Disorders, Osteoporosis and Fractures ENDOCRINE: Positive Endocrine Disorders and Hypoglycemia; Negative Diabetes Mellitus Type 1 or Diabetes Mellitus Type 2 HEMATOLOGIC: Negative Blood Disorders or Sickle Cell Disease OTHER HISTORY: Negative Blood Transfusions, Blood Transfusion Reaction or Anesthesia Reactions Surgical History SURGICAL: Positive Abdominal Surgery Social History SMOKING STATUS: Unknown if ever smoked SECOND HAND EXPOSURE: No SUBSTANCE USE: does not use Exam Vital Signs Temp Pulse Resp BP Pulse Ox O2 Del Method 98.2 F 77 18 143/61 H 93 L Room Air 08/28/24 12:00 08/28/24 12:00 08/28/24 12:00 08/28/24 12:00 08/28/24 12:08/28/24 12:00 Narrative Exam General: AOx2, cooperative, but able to provide limited history Skin: Noted bruising on the nasal bridge and forehead. HEENT: Atraumatic/normocephalic, JOSE CRUZ, neck supple Heart: RRR, S1 and S2 without clicks or murmurs Lungs: Clear on auscultation bilaterally, no difficulty breathing Abdomen: Soft, nontender. Bowel sounds present . Vascular: Peripheral pulses palpable Neuro: No focal neurological deficits noted. Results Labs 08/28/24 04:49 08/28/24 04:49 Labs: Short CBC 08/28/24 Range/Units 04:49 WBC 11.8 H D (3.6-11.0) Thou/mm3 Hgb 11.7 L (12.0-16.0) g/dL Hct 34.0 L (36.0-46.0) % Plt Count 290 (140-440) Thou/mm3 BMP 08/28/24 04:49 Sodium 136 Potassium 3.8 Chloride 101 Carbon Dioxide 24.9 BUN 10 Creatinine 0.3 L Glucose 119 H Calcium 8.5 Liver Function 08/28/24 Range/Units 04:49 Total Bilirubin 0.6 (0.3-1.2) mg/dL AST 18 (0-34) U/L ALT 17 (10-49) U/L Alkaline Phosphatase 116 (46-116) U/L Albumin 3.6 (3.4-4.8) gm/dL Quality Measures Quality Measures none Advance care planning discussed with:: patient Medications Home Medications and Allergies Home Medications ?Medication ?Instructions ?Recorded ?Confirmed ?Type carbamazepine 200 mg tablet 200 mg PO BID \ days ##0 1 08/14/24 History (Tegretol) furosemide 40 mg tablet (Lasix) 40 mg PO QAM ##0 04/0408/14/24 History simvastatin 20 mg tablet 20 mg PO HS ##0 04/04/09 History docusate sodium 100 mg capsule 100 mg PO BID ##0 06/0508/14/24 History levetiracetam 500 mg tablet 1,500 mg PO BID Seizures # #0 06/05/17 08/14/24 History potassium chloride 8 mEq 8 meq PO QAM 02/23/20 History tablet,extended release acetaminophen 325 mg tablet 650 mg PO Q4H PRN temp 101 *F 04/21/20 08/14/24 History bisacodyl 10 mg rectal suppository 10 mg [place] PRN PRN Co nstipation 04/21/20 08/14/24 History calcium carbonate 600 mg PO BID 04/21/2008/14 History cholecalciferol (vitamin D3) 10 400 unit PO QDAY 04/2108/14/24 History mcg (400 unit) tablet (Vitamin D3) ferrous sulfate 325 mg (65 mg 325 mg PO QDAY 04/21/20 08/14/24 History iron) tablet ketoconazole 2 % topical cream 1 applic topical PRN IL N Rash 04/21/20 08/14/24 History lactulose 10 gram/15 mL oral 30 ml PO QDAY 04/21/20 History solution metoprolol succinate 25 mg 25 mg PO QDAY 12/31/2307/19 History tablet,extended release 24 hr omeprazole 20 mg tablet,delayed 20 mg PO QDAY 12/31/23 08/14/24 History release acetaminophen 500 mg tablet 1,000 mg PO Q4H PRN pain 0 08/14/24 08/14/24 History ascorbic acid (vitamin C) 500 mg 500 mg PO QDAY 08/14/24 History tablet (Vitamin C) dextromethorphan-guaifenesin 10 10 ml PO Q6H PRN cough /congestion 08/14/24 08/14/24 History mg-100 mg/5 mL oral syrup diltiazem HCl 180 mg 180 mg PO HS 08/14/24 History capsule,extended release 24 hr docusate sodium 250 mg capsule 250 mg PO BID 08/14/24 08/14/24 History ipratropium 0.5 mg-albuterol 3 mg 3 ml inhalation Q4H PRN 08/14/24 08/14/24 History (2.5 mg base)/3 mL nebulization respiratory relief/con gestion soln losartan 100 1 tab PO QDAY 08/14/2408/14 History mg-hydrochlorothiazide 12.5 mg tablet (Hyzaar) metoprolol succinate 50 mg 50 mg PO QDAY 08/14/2407/19 History tablet,extended release 24 hr multivitamin,xx-zoul-Ox-FA-min 1 tab PO QDAY nutrition supplement 08/14/24 08/14/24 History triamcinolone acetonide 0.1 % 1 applic topical PRN PRN rash 08/14/24 08/14/24 History topical cream Allergies Allergy/AdvReac Type Severity Reaction Status Date / Time theophylline Allergy Intermediate unknown Verified 08/14/24 03:48 promethazine Allergy Unknown UNKNOWN Verified 08/14/24 03:48 amoxicillin Allergy Verified 08/14/24 03:48 ciprofloxacin (From Cipro) Allergy Verified 08/14/24 03:48 Visit Medications Acetaminophen (Acetaminophen 325 Mg Tablet) 650 mg PO Q6H PRN PRN Reason: Fever >100 or pain 1-3 Stop: 09/26/24 23:23 Hydrocodone Bitart/Acetaminophen (Hydrocodone/Apap 5/325 Tablet) 1 tab PO Q4HR PRN PRN Reason: PAIN SCALE 4-6 (Moderate Stop: 09/01/24 23:29 Apixaban (Apixaban 2.5 Mg Tablet) 2.5 mg PO BID [facility] Stop: 09/17/24 23:44 Last Admin: 08/28/24 09:48 Dose: 2.5 mg Carbamazepine (Carbamazepine 100 Mg Chew) 300 mg PO BID [facility] Stop: 09/27/24 20:59 Diltiazem HCl (Diltiazem Cd 180 Mg Capcr) 180 mg PO HS [facility] Stop: 09/27/24 20:59 Levetiracetam (Levetiracetam 250 Mg Tablet) 1,500 mg PO BID [facility] Stop: 09/26/24 23:44 Last Admin: 08/28/24 09:47 Dose: 1,500 mg Ondansetron HCl (Ondansetron Inj 2 Mg/Ml Inj 2 Ml) 4 mg IV Q6H PRN; Protocol PRN Reason: NAUSEA OR VOMITING Stop: 09/26/24 23:23 Pantoprazole Sodium (Pantoprazole Inj 40 Mg Vial) 40 mg IVP QDAY [facility] Stop: 09/27/24 08:59 Last Admin: 08/28/24 09:40 Dose: 40 mg Tamsulosin HCl (Tamsulosin Hcl 0.4 Mg Capsule) 0.4 mg PO QDAY [facility] Stop: 09/27/24 08:59 Last Admin: 08/28/24 09:48 Dose: 0.4 mg Discontinued Medications Carbamazepine (Carbamazepine 100 Mg Chew) 200 mg PO BID [facility] Stop: 09/26/24 23:44 Last Admin: 08/28/24 09:48 Dose: 200 mg Diltiazem HCl (Diltiazem Cd 180 Mg Capcr) 180 mg PO X1 ONE Stop: 08/28/24 03:01 Diltiazem HCl (Diltiazem Cd 180 Mg Capcr) 180 mg PO X1 ONE Stop: 08/28/24 02:48 Last Admin: 08/28/24 04:08 Dose: 180 mg Heparin Sodium (Porcine) (Heparin Sod Inj 5000 Unit/Ml Vial) 5,000 unit SC Q12H [facility] Stop: 09/10/24 23:29 Sodium Chloride (Ns) 1,000 mls @ 999 mls/hr IV .Q1H1M ONE Stop: 08/27/24 13:47 Last Infusion: 08/27/24 17:31 Dose: Infused Magnesium Sulfate (Magnesium Sulfate Ivpb) 4 gm in 50 mls @ 12.5 mls/hr IV X1 ONE Stop: 08/28/24 12:25 Last Admin: 08/28/24 09:41 Dose: 12.5 mls/hr Morphine Sulfate (Morphine Sulf Inj 10 Mg/Ml Vial) 4 mg IVP X1 ONE Stop: 08/27/24 21:51 Last Admin: 08/27/24 22:42 Dose: Not Given Nitrofurantoin Macrocrystals (Nitrofurantoin Macro 100 Mg Capsule) 100 mg PO X1 ONE Stop: 08/27/24 16:04 Last Admin: 08/27/24 17:40 Dose: 100 mg Assessment & Plan Plan Patient is a 69-year-old female, past medical history of developmental delay, cerebral palsy, history of seizures, patient is oriented to self and person but is only able to provide limited history, though she denies having a fall, though she has bruising on her nose and forehead, does not volunteer any information about how she hurt her hip. So the H&P completed from chart review, patient was found to have witnessed GTC seizures at the back of a van that she was riding in, and brought her to the emergency room, complaining of pain right hip. Imaging studies showed right hip intertrochanteric fracture, orthopedic surgeon Dr. Watkins was consulted for possible surgical intervention. Per orthopedic surgeon Dr. Watkins, cardiac and GI clearance clearance will be required prior to surgery as patient is high risk for surgery due to comorbidities. 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 Cardiology consulted for preop clearance prior to surgery. #Preop cardiac assessment Revised cardiac index for preop risk - RCRI score is 0, 3.9% risk of major cardiac event. RICCO score 0.3% risk of major cardiac event IntraOp operatively or immediately postop. Given patient has prior bedbound status, functional capacity is likely <4 METS. poor functional capacity, but orthopedic surgery generally considered low risk. Prior echocardiogram in July was not an adequate study, EF was 55 to 60%, aortic sclerosis. EKG shows sinus rhythm and Rt. bundle-branch block . currently patient stays on Eliquis 2.5 mg for DVT prophylaxis. Per orthopedic surgeon, no plans for immediate or emergency surgery, will wait for GI recommendations ? Low risk for surgery , can proceed if planned. #Peripheral arterial disease Lower extremity duplex scan was done which was reported as consistent with obstructive arterial disease, LUL 1.9 Radiology recommended getting CTA with abdominal aorta iliofemoral runoff . but 1.9 LUL, which is normal, duplex scan shows triphasic flow upto to dorsalis pedis a. pt has no ulcers or discolorations suggestive of arterial occlusion. per cardiology no further interventions or investigations required, #History of hypertension ? Home medications include Cardizem 180 ER daily and metoprolol succinate 25 mg, and losartan 100 mg daily #History of developmental delay #History of seizures #Cerebral palsy ?Management per primary team Plan of care discussed with stained glass glazier Dr. Bee Figueredo MD PGY2
--- NOTE | 2024-08-28 15:10 | PC.SS ---
Pt is developmentally delayed.? Pt is [facility].? SS met with pt and caregiver, Brigida Little regarding patient's d/c plan.? Pt is alert.? Prior to being hospitalized pt transfers into wheelchair with assistance.? Pt requires assistance with ADLs.? Per Brigida, she is uncertain if pt is conserved.? attempted to contact [facility] [employer] [employer] but was only able to leave SS contact information.? SS provided verbal d/c options for home or SNF.? Caregiver, Brigida is requesting pt return home upon dc and HH Services.? SS provided verbal choices for HH Services and Brigida's choice is [facility] (due to being familiar with HH).? Brigida is requesting a hospital bed and everett lift.? Pt will require transportation home.? Pt confirmed with Jes from public [facility] office pt is not conserved.? has placed the Community Resource List at bedside. DC Plan:? Return home with HH Emergency contact is:? [facility], phone#[phone] Address:? Correct on facesheet HH:? [facility]
--- NOTE | 2024-08-28 17:06 | PD.IMCONS ---
HPI Data of Consult Requesting Physician: Maikel Burns MD Primary Care Provider: Physician No Primary/Family Consult Narrative Reason for consult: Evaluation of pancreatic mass History of present illness: 69 years old female asked by the internal medicine team and the orthopedic surgeon for evaluation of the pancreatic mass which was seen on 08/12/[address] scan of the chest abdomen pelvis which showed cholelithiasis and an 8.8 cm mass which was septated mass in the head of the pancreas It was followed by MRI of the abdomen on 08/13/2024 which showed 8.8 x 4.2 cm mass in the head of the pancreas No adjoining lymphadenopathy Patient now admitted with Intertrochanteric fracture of the right hip for which she may or may not need surgical intervention I will leave it up to the orthopedic surgery cc:: cc: Maikel Burns MD Review of Systems Review of Systems ROS Unobtainable: unobtainable due to medical condition Past Medical History Surgical History OTHER SURGICAL HX: Developmentally challenged patient Cerebral palsy Developmental delay Seizure disorder Meds Home Medications and Allergies Home Medications ?Medication ?Instructions ?Recorded ?Confirmed ?Type carbamazepine 200 mg tablet 200 mg PO BID \ days ##0 04/04/09 08/14/24 History (Tegretol) furosemide 40 mg tablet (Lasix) 40 mg PO QAM ##0 04/04/09 08/14/24 History simvastatin 20 mg tablet 20 mg PO HS ##0 04/04/09 08/14/24 History docusate sodium 100 mg capsule 100 mg PO BID ##0 06/05/17 08/14/24 History levetiracetam 500 mg tablet 1,500 mg PO BID Seizures ##0 06/05/17 08/14/24 History potassium chloride 8 mEq 8 meq PO QAM 02/23/20 08/14/24 History tablet,extended release acetaminophen 325 mg tablet 650 mg PO Q4H PRN temp 101 *F 04/21/20 08/14/24 History bisacodyl 10 mg rectal suppository 10 mg CO PRN PRN Constipation 04/21/20 08/14/24 History calcium carbonate 600 mg PO BID 04/21/20 08/14/24 History cholecalciferol (vitamin D3) 10 400 unit PO QDAY 04/21/20 08/14/24 History mcg (400 unit) tablet (Vitamin D3) ferrous sulfate 325 mg (65 mg 325 mg PO QDAY 04/21/20 08/14/24 History iron) tablet ketoconazole 2 % topical cream 1 applic topical PRN PRN Rash 04/21/20 08/14/24 History lactulose 10 gram/15 mL oral 30 ml PO QDAY 04/21/20 08/14/24 History solution metoprolol succinate 25 mg 25 mg PO QDAY 12/31/23 08/14/24 History tablet,extended release 24 hr omeprazole 20 mg tablet,delayed 20 mg PO QDAY 12/31/23 08/14/24 History release acetaminophen 500 mg tablet 1,000 mg PO Q4H PRN pain 08/14/24 08/14/24 History ascorbic acid (vitamin C) 500 mg 500 mg PO QDAY 08/14/24 08/14/24 History tablet (Vitamin C) dextromethorphan-guaifenesin 10 10 ml PO Q6H PRN cough/congestion 08/14/24 08/14/24 History mg-100 mg/5 mL oral syrup diltiazem HCl 180 mg 180 mg PO HS 08/14/24 08/14/24 History capsule,extended release 24 hr docusate sodium 250 mg capsule 250 mg PO BID 08/14/24 08/14/24 History ipratropium 0.5 mg-albuterol 3 mg 3 ml inhalation Q4H PRN 08/14/24 08/14/24 History (2.5 mg base)/3 mL nebulization respiratory relief/congestion soln losartan 100 1 tab PO QDAY 08/14/24 08/14/24 History mg-hydrochlorothiazide 12.5 mg tablet (Hyzaar) metoprolol succinate 50 mg 50 mg PO QDAY 08/14/24 08/14/24 History tablet,extended release 24 hr multivitamin,xr-fpef-Iu-FA-min 1 tab PO QDAY nutrition supplement 08/14/24 08/14/24 History triamcinolone acetonide 0.1 % 1 applic topical PRN PRN rash 08/14/24 08/14/24 History topical cream Allergies Allergy/AdvReac Type Severity Reaction Status Date / Time theophylline Allergy Intermediate unknown Verified 08/14/24 03:48 promethazine Allergy Unknown UNKNOWN Verified 08/14/24 03:48 amoxicillin Allergy Verified 08/14/24 03:48 ciprofloxacin (From Cipro) Allergy Verified 08/14/24 03:48 Exam Vital Signs Temp Pulse Resp BP Pulse Ox O2 Del Method 97.6 F 91 17 134/64 H 93 L Room Air 08/28/24 15:42 08/28/24 15:42 08/28/24 15:42 08/28/24 15:42 08/28/24 15:42 08/28/24 15:42 Constitutional Comments: Chronically ill-appearing Routine Abdominal Exam Comments: Soft nontender Results Labs 08/29/24 04:56 08/29/24 04:56 Labs: Short CBC 08/28/24 Range/Units 04:49 WBC 11.8 H D (3.6-11.0) Thou/mm3 Hgb 11.7 L (12.0-16.0) g/dL Hct 34.0 L (36.0-46.0) % Plt Count 290 (140-440) Thou/mm3 BMP 08/28/24 04:49 Sodium 136 Potassium 3.8 Chloride 101 Carbon Dioxide 24.9 BUN 10 Creatinine 0.3 L Glucose 119 H Calcium 8.5 Liver Function 08/28/24 Range/Units 04:49 Total Bilirubin 0.6 (0.3-1.2) mg/dL AST 18 (0-34) U/L ALT 17 (10-49) U/L Alkaline Phosphatase 116 (46-116) U/L Albumin 3.6 (3.4-4.8) gm/dL Assessment and Plan Additional Assessment & Plan Additional Plan: # Ultrasound-guided pancreatic head mass CA 19?9 level Ultrasound-guided fine-needle biopsy by IR scheduled for Saturday or Saturday Will follow the patient Other medical problems include # Right hip fracture # Grand mal seizure disorder # Cerebral palsy leading to 12 mentally challenged patient Thank you for the opportunity to participate in the care of this patient
[2024-08-28] MEDS: carBAMazepine 100 MG CHEW 300 MG PO (20:20)
--- NOTE | 2024-08-28 23:18 | ESPR_ITS ---
RE: LUCILLE BLANCO : 1955 DATE OF SERVICE: 08/28/2024 TIME: 11:00 p.m. The patient was seen. She is sleeping quietly. Vital signs; blood pressure 138/65, pulse ox 95% on room air. Hemoglobin 11.7, white count 11,800 at 5 this morning, platelet count 290,000. PT 12.1, INR 1.1. Electrolytes within normal limits. Creatinine 0.3, which is the lowest I have ever seen. ASSESSMENT: Peritrochanteric right hip fracture. PLAN: Conservative management for now. Looking forward to echo. She has quite significant peripheral vascular disease. Feet extremely cold, erythematous. No palpable pulse. I will ask Dr. Aydin Perdomo how we can further evaluate her vascular system. Again, right now, conservative management will proceed until additional information. I am waiting for Dr. Zavala to comment on mass, pancreatic head. She has been on Eliquis by history. We will go slow with measured steps. DT: 23:01:22 TT: 23:17:00 Ref: [id number] - TID: [id number]
[2024-08-29] VITALS (7 sets, daily range): BP systolic 141–160; BP diastolic 70–78; PULSE 72–88; RESP 16–19; TEMP 36.3–37.4; O2SAT 94–98
[2024-08-29 06:06] LABS: Basophils # (Auto) 0.1 Thou/mm3 (0.0-0.2); Basophils % (Auto) 0 % (0-2.5); Eosinophils # (Auto) 0.4 Thou/mm3 (0.0-0.5); Eosinophils % (Auto) 3 % (0-10); Hematocrit 31.4 % (36.0-46.0); Hemoglobin 10.6 g/dL (12.0-16.0); Immature Granulocytes % (Auto) 1 % (0-0); Immature Granulocytes Auto 0.08 Thou/mm3 (0.00-0.00); Lymphocytes # (Auto) 0.6 Thou/mm3 (1.0-4.8); Lymphocytes % (Auto) 4 % (10-50); Mean Corpuscular HGB Conc 33.8 g/dl (31.0-37.0); Mean Corpuscular Hemoglobin 31.2 pg (25.0-35.0); Mean Corpuscular Volume 92 fL (80-100); Monocytes # (Auto) 0.9 Thou/mm3 (0.0-0.8); Monocytes % (Auto) 6 % (0-12); Neutrophils # (Auto) 13.2 Thou/mm3 (1.8-7.7); Neutrophils % (Auto) 87 % (37-80); Nucleated Red Blood Cell % 0 /100 WBC (0); Platelet Count 223 Thou/mm3 (140-440); White Blood Count 15.2 Thou/mm3 (3.6-11.0)
[2024-08-29 06:49] LABS: Alanine Aminotransferase 16 U/L (10-49); Albumin, Serum 3.5 gm/dL (3.4-4.8); Albumin/Globulin Ratio 1.5 (1.2-2.2); Alkaline Phosphatase 101 U/L (46-116); Anion Gap 7 (7-16); Aspartate Amino Transferase 15 U/L (0-34); BUN/Creatinine Ratio 28 Ratio (12-20); Bilirubin,Total 0.4 mg/dL (0.3-1.2); Blood Urea Nitrogen 11 mg/dL (9-23); Calcium 8.6 mg/dL (8.3-10.6); Carbon Dioxide 25.7 mMol/L (20.0-31.0); Chloride 102 mMol/L (98-107); Creatinine (Component) 0.4 mg/dL (0.6-1.3); Estimated Creatinine Clearance 135.3 mL/min (>60); Globulin 2.3 gm/dL (2.3-3.5); Glucose 126 mg/dL (74-106); Osmolality,Calculated 271 (275-295); Potassium 3.7 mMol/L (3.4-5.1); Sodium 135 mMol/L (136-145); Total Protein 5.8 gm/dL (5.7-8.2); eGFR > 60 See Note
[2024-08-29] MEDS: carBAMazepine 100 MG CHEW 300 MG PO ×2 (09:19→21:21)
[2024-08-29] MEDS: levETIRAcetam 250 MG TABLET 1500 MG PO ×2 (09:19→21:22)
[2024-08-29] MEDS: PANTOPRAZOLE INJ 40 MG VIAL IVP (09:19)
[2024-08-29] MEDS: TAMSULOSIN HCL 0.4 MG CAPSULE PO (09:20)
[2024-08-29] MEDS: SENNA TABLET 1 TAB PO (09:20)
--- NOTE | 2024-08-29 11:43 | ESPR_ITS ---
Documentation for date of: 08/29/24 Subjective Subjective Interval history: Patient was seen and examined in [facility] today. #2 overnight events and patient feels okay this morning. Patient complains of some right hip pain otherwise denies any other problems. Patient is cleared by cardiology. Pending further GI recommendations. Exam Vital Signs Temp Pulse Resp BP Pulse Ox O2 Del Method 97.4 F 72 18 145/77 H 95 Room Air 08/29/24 08:00 08/29/24 08:00 08/29/24 08:00 08/29/24 08:00 08/29/24 08:00 08/29/24 08:00 Narrative Exam Constitutional: Well nourished and in no acute distress CVS: RRR, S1 and S2 present, no murmurs, rubs or gallops . RESP: CTAB, no SOB, no rales, rhonchi or wheezing. No respiratory Distress GI: Normal BS, Nontender/Nondistended. MSK: Limited motion on the right Hip due to pain Skin: Warm to touch, Dry. No rashes or lesions. No hematomas Neuro: equipment cleaner and tester II-XII grossly intact. Sensation grossly intact. Psych: (AAO) x1 Objective Labs 08/30/24 04:38 08/30/24 04:38 Labs: Laboratory Results - last 24 hr 08/29/24 04:56 WBC 15.2 H RBC 3.40 L Hgb 10.6 L Hct 31.4 L MCV 92 MCH 31.2 MCHC 33.8 RDW Std Deviation 44.0 Plt Count 223 D Neut % (Auto) 87 H Lymph % (Auto) 4 L [place] % (Auto) 6 Eos % (Auto) 3 Baso % (Auto) 0 Neut # (Auto) 13.2 H Lymph # (Auto) 0.6 L [place] # (Auto) 0.9 H Eos # (Auto) 0.4 Baso # (Auto) 0.1 Immature Gran # (Auto) 0.08 H Absolute Nucleated RBC 0.00 Immature Gran % 1 H Nucleated RBC % 0 Sodium 135 L Potassium 3.7 Chloride 102 Carbon Dioxide 25.7 Anion Gap 7 BUN 11 Creatinine 0.4 L Estim Creat Clear Calc 135.3 eGFR > 60 BUN/Creatinine Ratio 28 H Glucose 126 H Calculated Osmolality 271 L Calcium 8.6 Corrected Calcium 9.0 Total Bilirubin 0.4 AST 15 ALT 16 Alkaline Phosphatase 101 Total Protein 5.8 Albumin 3.5 Globulin 2.3 Albumin/Globulin Ratio 1.5 Quality Measures Quality Measures none Advance care planning discussed with:: patient Assessment & Plan Assessment Current Active Medications: Generic Name Dose Route Start Last Admin Trade Name Freq PRN Reason Stop Dose Admin Acetaminophen 650 mg 08/27/24 23:24 Acetaminophen 325 Mg Tablet PO 09/26/24 23:23 Q6H PRN Fever >100 or pain 1-3 Hydrocodone Bitart/Acetaminophen 1 tab 08/27/24 23:30 Hydrocodone/Apap 5/325 Tablet PO 09/01/24 23:29 Q4HR PRN PAIN SCALE 4-6 (Moderate Apixaban 2.5 mg 08/27/24 23:45 08/28/24 09:48 Apixaban 2.5 Mg Tablet PO 09/17/24 23:44 2.5 mg BID BHARAT Administration Carbamazepine 300 mg 08/28/24 21:00 08/29/24 09:19 Carbamazepine 100 Mg Chew PO 09/27/24 20:59 300 mg BID BHARAT Administration Diltiazem HCl 180 mg 08/28/24 21:00 08/28/24 20:20 Diltiazem Cd 180 Mg Capcr PO 09/27/24 20:59 180 mg HS BHARAT Administration Heparin Sodium (Porcine) 5,000 unit 08/29/24 14:00 Heparin Sod Inj 5000 Unit/Ml Vial SC 09/12/24 13:59 Q8HR BHARAT Levetiracetam 1,500 mg 08/27/24 23:45 08/29/24 09:19 Levetiracetam 250 Mg Tablet PO 09/26/24 23:44 1,500 mg BID BHARAT Administration Lorazepam 2 mg 08/28/24 15:28 Lorazepam 2 Mg/Ml Vial IVP 09/02/24 15:27 Q30M PRN SEIZURES Ondansetron HCl 4 mg 08/27/24 23:24 Ondansetron Inj 2 Mg/Ml Inj 2 Ml IV 09/26/24 23:23 Q6H PRN NAUSEA OR VOMITING Protocol Pantoprazole Sodium 40 mg 08/28/24 09:00 08/29/24 09:19 Pantoprazole Inj 40 Mg Vial IVP 09/27/24 08:59 40 mg QDAY BHARAT Administration Sennosides 1 tab 08/29/24 09:00 08/29/24 09:20 Senna Tablet PO 09/28/24 08:59 1 tab QDAY BHARAT Administration Protocol Tamsulosin HCl 0.4 mg 08/28/24 09:00 08/29/24 09:20 Tamsulosin Hcl 0.4 Mg Capsule PO 09/27/24 08:59 0.4 mg QDAY BHARAT Administration Plan 69 y/o female with PMHx of cerebral palsy, developmental delay, hypertension, seizures, bedbound since 2020 (takes Eliquis DVT prophylaxis) and urinary retention who is admitted for acute intertrochanteric fracture of R hip. #Acute intertrochanteric fracture of the right hip #Hx of seizures Patient is bedbound and is presenting from a care home is under conservatorship by Dr. Arango Apparently patient had a witnessed seizure lasting 30 seconds and presented to the ED Patient is on home Keppra 1500 mg twice daily and carbamazepine 300 mg twice daily Femur x-ray and CT of the hip confirm acute intertrochanteric fracture of the right hip Dr Mancia, orthopedic surgery, consulted in the ED Orthopedic surgery is requesting cardiac and GI clearance as the patient is high risk for surgery Echo done in July 2024 shows: Normal LV size and function. Estimated LVEF 55 to 60%. Diastolic function indeterminate. Normal RV size and function. Mild TR. Mild aortic valve sclerosis without stenosis Arterial duplex ultrasound ordered by orthopedic surgery confirms degree of PAD, radiology recommends CTA Plan: Ortho consult, appreciate recs Cardiology consulted, Patient is cleared by cardiology Continue home seizure medications, neurology recommends IV Ativan for breakthrough seizures Pain controlled Seizure precautions Neuro checks q4h Will contact Dr. Arango regarding surgical intervention as the patient emphatically does not want it #Pancreatic mass MRI shows complex cystic mass in pancreatic head and body Ultrasound-guided biopsy was considered for last visit, however does not seem to be done CA 19-9 is elevated at 57 Per previous documentation, radiologist believes this patient does not have concerning lesion and recommended repeat imaging in 3 to 6 months Plan: Dr Mancia consulted GI - pending clearance Repeat imaging of pancreas in 3 to 6 months outpatient #History of hypertension #Hypotension #History of hyperlipidemia Blood pressure was measured to 70 systolic at home D[employer]oth Dr. Jennings Triglycerides 94, cholesterol 135, LDL 67, HDL 49 Plan: Continue with home Cardizem 180 CD #Bedbound #History of cerebral palsy #Developmental delay Patient is conserved, takes Eliquis she is mainly bedbound for DVT prophylaxis Dr. Arango is the patient's conservator Plan: Holding Eliquis 2.5 mg twice daily Will contact Dr. Arango regarding need for surgical intervention Hospital Management: Diet: Cardiac, dysphagia II Lines: PIV Bowel: Senna DVT prophylaxis: Eliquis 2.5 mg BID GI prophylaxis: Protonix Dispo: Pending surgical clearance for trochanteric hip fracture repair versus pain management and conservative treatment based on what conservator wants to do. Code: Full I discussed patient's care with attending physician, Dr Grant Krishnan PGY3 Attending Provider Attestation/Addendum I reviewed labs, imaging, EKG, home medications and prior available records. Face to face evaluation was performed by me. I have personally examined the patient and discussed assessment and plan with the IM team. I reviewed the resident note and agree with the plan with exceptions as below. Right intertrochanteric hip fracture Seizure disorder Developmental delay/cerebral palsy Pancreatic mass Leukocytosis, unspecific Will touch base with Dr. Arango for her decisions Management of pain as needed Consulted GI for pancreatic mass workup prior to OR Consulted neurology in the setting of seizure episode. Seizure precautions. Resumed home antiepileptic medications. Ativan as needed for breakthrough seizures Consulted orthopedic surgery: Conservative management for now Consulted cardiology: Okay to proceed to surgery if indicated. Ordered echocardiogram Trend WBC
--- NOTE | 2024-08-29 11:56 | ESPR_ITS ---
<Statement entered by Berhane Perdomo MD - 09/01/24 12:30> I personally examined the patient evaluated the cardiac risk for surgery patient has multiple medical problems clinically appears to be doing stable no cardiac decompensation no cardiac history is low cardiac risk for surgery proceed with surgery as scheduled if necessary all essential components of the consultation report is reviewed and agree with the treatment plan recommendation as documented by PGY 2 Documentation for date of: 08/29/24 Subjective Subjective Interval history: Patient is evaluated bedside, asymptomatic, denies chest pain. Cardiac clearance for orthopedic surgery given, considered low risk for surgery. Exam Vital Signs Temp Pulse Resp BP Pulse Ox O2 Del Method 97.4 F 72 18 145/77 H 95 Room Air 08/29/24 08:00 08/29/24 08:00 08/29/24 08:00 08/29/24 08:00 08/29/24 08:00 08/29/24 08:00 Narrative Exam General: AOx2, cooperative, but able to provide limited history Skin: Noted bruising on the nasal bridge and forehead. HEENT: Atraumatic/normocephalic, JOSE CRUZ, neck supple Heart: RRR, S1 and S2 without clicks or murmurs Lungs: Clear on auscultation bilaterally, no difficulty breathing Abdomen: Soft, nontender. Bowel sounds present . Vascular: Peripheral pulses palpable Neuro: No focal neurological deficits noted. Objective Labs 08/29/24 04:56 08/29/24 04:56 Labs: Laboratory Results - last 24 hr 08/29/24 04:56 WBC 15.2 H RBC 3.40 L Hgb 10.6 L Hct 31.4 L MCV 92 MCH 31.2 MCHC 33.8 RDW Std Deviation 44.0 Plt Count 223 D Neut % (Auto) 87 H Lymph % (Auto) 4 L [place] % (Auto) 6 Eos % (Auto) 3 Baso % (Auto) 0 Neut # (Auto) 13.2 H Lymph # (Auto) 0.6 L [place] # (Auto) 0.9 H Eos # (Auto) 0.4 Baso # (Auto) 0.1 Immature Gran # (Auto) 0.08 H Absolute Nucleated RBC 0.00 Immature Gran % 1 H Nucleated RBC % 0 Sodium 135 L Potassium 3.7 Chloride 102 Carbon Dioxide 25.7 Anion Gap 7 BUN 11 Creatinine 0.4 L Estim Creat Clear Calc 135.3 eGFR > 60 BUN/Creatinine Ratio 28 H Glucose 126 H Calculated Osmolality 271 L Calcium 8.6 Corrected Calcium 9.0 Total Bilirubin 0.4 AST 15 ALT 16 Alkaline Phosphatase 101 Total Protein 5.8 Albumin 3.5 Globulin 2.3 Albumin/Globulin Ratio 1.5 Quality Measures Quality Measures none Advance care planning discussed with:: patient Assessment & Plan Assessment Current Active Medications: Generic Name Dose Route Start Last Admin Trade Name Freq PRN Reason Stop Dose Admin Acetaminophen 650 mg 08/27/24 23:24 Acetaminophen 325 Mg Tablet PO 09/26/24 23:23 Q6H PRN Fever >100 or pain 1-3 Hydrocodone Bitart/Acetaminophen 1 tab 08/27/24 23:30 Hydrocodone/Apap 5/325 Tablet PO 09/01/24 23:29 Q4HR PRN PAIN SCALE 4-6 (Moderate Apixaban 2.5 mg 08/27/24 23:45 08/28/24 09:48 Apixaban 2.5 Mg Tablet PO 09/17/24 23:44 2.5 mg BID BHARAT Administration Carbamazepine 300 mg 08/28/24 21:00 08/29/24 09:19 Carbamazepine 100 Mg Chew PO 09/27/24 20:59 300 mg BID BHARAT Administration Diltiazem HCl 180 mg 08/28/24 21:00 08/28/24 20:20 Diltiazem Cd 180 Mg Capcr PO 09/27/24 20:59 180 mg HS BHARAT Administration Heparin Sodium (Porcine) 5,000 unit 08/29/24 14:00 Heparin Sod Inj 5000 Unit/Ml Vial SC 09/12/24 13:59 Q8HR BHARAT Levetiracetam 1,500 mg 08/27/24 23:45 08/29/24 09:19 Levetiracetam 250 Mg Tablet PO 09/26/24 23:44 1,500 mg BID BHARAT Administration Lorazepam 2 mg 08/28/24 15:28 Lorazepam 2 Mg/Ml Vial IVP 09/02/24 15:27 Q30M PRN SEIZURES Ondansetron HCl 4 mg 08/27/24 23:24 Ondansetron Inj 2 Mg/Ml Inj 2 Ml IV 09/26/24 23:23 Q6H PRN NAUSEA OR VOMITING Protocol Pantoprazole Sodium 40 mg 08/28/24 09:00 08/29/24 09:19 Pantoprazole Inj 40 Mg Vial IVP 09/27/24 08:59 40 mg QDAY BHARAT Administration Sennosides 1 tab 08/29/24 09:00 08/29/24 09:20 Senna Tablet PO 09/28/24 08:59 1 tab QDAY BHARAT Administration Protocol Tamsulosin HCl 0.4 mg 08/28/24 09:00 08/29/24 09:20 Tamsulosin Hcl 0.4 Mg Capsule PO 09/27/24 08:59 0.4 mg QDAY BHARAT Administration Plan Patient is a 69-year-old female, past medical history of developmental delay, cerebral palsy, history of seizures, patient is oriented to self and person but is only able to provide limited history, though she denies having a fall, though she has bruising on her nose and forehead, does not volunteer any information about how she hurt her hip. So the H&P completed from chart review, patient was found to have witnessed GTC seizures at the back of a van that she was riding in, and brought her to the emergency room, complaining of pain right hip. Imaging studies showed right hip intertrochanteric fracture, orthopedic surgeon Dr. Watkins was consulted for possible surgical intervention. Per orthopedic surgeon Dr. Watkins, cardiac and GI clearance clearance will be required prior to surgery as patient is high risk for surgery due to comorbidities. 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 Cardiology consulted for preop clearance prior to surgery. #Preop cardiac assessment Revised cardiac index for preop risk - RCRI score is 0, 3.9% risk of major cardiac event. RICCO score 0.3% risk of major cardiac event IntraOp operatively or immediately postop. Given patient has prior bedbound status, functional capacity is likely <4 METS. poor functional capacity, but orthopedic surgery generally considered low risk. Prior echocardiogram in July was not an adequate study, EF was 55 to 60%, aortic sclerosis. EKG shows sinus rhythm and Rt. bundle-branch block . currently patient stays on Eliquis 2.5 mg for DVT prophylaxis. Per orthopedic surgeon, no plans for immediate or emergency surgery, will wait for GI recommendations ? Low risk for surgery , can proceed if planned. #Peripheral arterial disease Lower extremity duplex scan was done which was reported as consistent with obstructive arterial disease, LUL 1.9 Radiology recommended getting CTA with abdominal aorta iliofemoral runoff . but 1.9 LUL, which is normal, duplex scan shows triphasic flow upto to dorsalis pedis a. pt has no ulcers or discolorations suggestive of arterial occlusion. per cardiology no further interventions or investigations required, #History of hypertension ? Home medications include Cardizem 180 ER daily and metoprolol succinate 25 mg, and losartan 100 mg daily #History of developmental delay #History of seizures #Cerebral palsy ?Management per primary team Plan of care discussed with business education instructor Dr. Bee Figueredo MD PGY2
[2024-08-29] MEDS: HEPARIN SOD INJ 5000 UNIT/ML VIAL SC ×2 (14:19→21:22)
--- NOTE | 2024-08-29 15:07 | PC.SS ---
Rounding: Pending poss SX
--- NOTE | 2024-08-29 18:18 | ESPR_ITS ---
Documentation for date of: 08/29/24 Subjective Subjective Interval history: Ultrasound-guided biopsy by IR ordered for Saturday or Saturday of this pancreatic mass CA 19?9 level also ordered Exam Vital Signs Temp Pulse Resp BP Pulse Ox O2 Del Method O2 Flow Rate 98.8 F 86 18 142/78 H 96 Nasal Cannula 1 08/29/24 16:00 08/29/24 16:00 08/29/24 16:00 08/29/24 16:00 08/29/24 16:00 08/29/24 16:00 08/29/24 16:00 Objective Labs 08/29/24 04:56 08/29/24 04:56 Labs: Laboratory Results - last 24 hr 08/29/24 04:56 WBC 15.2 H RBC 3.40 L Hgb 10.6 L Hct 31.4 L MCV 92 MCH 31.2 MCHC 33.8 RDW Std Deviation 44.0 Plt Count 223 D Neut % (Auto) 87 H Lymph % (Auto) 4 L [place] % (Auto) 6 Eos % (Auto) 3 Baso % (Auto) 0 Neut # (Auto) 13.2 H Lymph # (Auto) 0.6 L [place] # (Auto) 0.9 H Eos # (Auto) 0.4 Baso # (Auto) 0.1 Immature Gran # (Auto) 0.08 H Absolute Nucleated RBC 0.00 Immature Gran % 1 H Nucleated RBC % 0 Sodium 135 L Potassium 3.7 Chloride 102 Carbon Dioxide 25.7 Anion Gap 7 BUN 11 Creatinine 0.4 L Estim Creat Clear Calc 135.3 eGFR > 60 BUN/Creatinine Ratio 28 H Glucose 126 H Calculated Osmolality 271 L Calcium 8.6 Corrected Calcium 9.0 Total Bilirubin 0.4 AST 15 ALT 16 Alkaline Phosphatase 101 Total Protein 5.8 Albumin 3.5 Globulin 2.3 Albumin/Globulin Ratio 1.5 Impressions Impression: Pancreatic head mass that is significant for a size and most likely malignant IR guided ultrasound biopsy CA 19?9 level Assessment & Plan A&P Narrative # Ultrasound-guided pancreatic head mass CA 19?9 level Ultrasound-guided fine-needle biopsy by IR scheduled for Saturday or Saturday Will follow the patient Other medical problems include # Right hip fracture # 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
[2024-08-29 18:39] LABS: Misc Send Out* See Sep Rpt
--- NOTE | 2024-08-29 21:11 | PD.VPROG1 ---
Telemedicine visit statement This visit was conducted with the use of phone was obtained on 08/29/24 at 2111. Documentation for date of: 08/29/24 Subjective Subjective Interval history: Patient is in medsurg today. No clinical seizures reported, she is refusing to eat any of her meals. She only drinks tea. Virtual exam Vital Signs Temp Pulse Resp BP Pulse Ox O2 Del Method O2 Flow Rate 97.3 F 74 17 160/72 H 94 L Nasal Cannula 1 08/29/24 20:00 08/29/24 20:00 08/29/24 20:00 08/29/24 20:00 08/29/24 20:00 08/29/24 20:00 08/29/24 20:00 Objective Labs 08/29/24 04:56 08/29/24 04:56 Labs: Laboratory Results - last 24 hr 08/29/24 04:56 WBC 15.2 H RBC 3.40 L Hgb 10.6 L Hct 31.4 L MCV 92 MCH 31.2 MCHC 33.8 RDW Std Deviation 44.0 Plt Count 223 D Neut % (Auto) 87 H Lymph % (Auto) 4 L [place] % (Auto) 6 Eos % (Auto) 3 Baso % (Auto) 0 Neut # (Auto) 13.2 H Lymph # (Auto) 0.6 L [place] # (Auto) 0.9 H Eos # (Auto) 0.4 Baso # (Auto) 0.1 Immature Gran # (Auto) 0.08 H Absolute Nucleated RBC 0.00 Immature Gran % 1 H Nucleated RBC % 0 Sodium 135 L Potassium 3.7 Chloride 102 Carbon Dioxide 25.7 Anion Gap 7 BUN 11 Creatinine 0.4 L Estim Creat Clear Calc 135.3 eGFR > 60 BUN/Creatinine Ratio 28 H Glucose 126 H Calculated Osmolality 271 L Calcium 8.6 Corrected Calcium 9.0 Total Bilirubin 0.4 AST 15 ALT 16 Alkaline Phosphatase 101 Total Protein 5.8 Albumin 3.5 Globulin 2.3 Albumin/Globulin Ratio 1.5 Assessment & Plan Assessment Patient is a 69 y/o female with PMHx of cerebral palsy, developmental delay, hypertension, seizures, bedbound since 2020 (takes Eliquis DVT prophylaxis) and urinary retention who is admitted for acute intertrochanteric fracture of R hip. #History of cerebral palsy #History of seizures Will increase carbamazepine to 300 mg twice daily Will check carbamazepine level Continue with Keppra 1500 mg twice daily Check carbamazepine level #Acute intertrochanteric fracture of the right hip #Hx of Urinary retention #Pancreatic mass #History of hypertension #Hypotension #History of hyperlipidemia #Bedbound #History of cerebral palsy #Developmental delay Continue management per primary team
[2024-08-29] MEDS: DILTIAZEM CD 180 MG CAPCR PO (21:21)
[2024-08-30] VITALS (9 sets, daily range): BP systolic 118–161; BP diastolic 61–76; PULSE 76–97; RESP 17–18; TEMP 36.5–37.2; O2SAT 95–99
[2024-08-30] MEDS: HEPARIN SOD INJ 5000 UNIT/ML VIAL SC ×2 (05:11→13:41)
[2024-08-30 05:40] LABS: Basophils % (Auto) 0 % (0-2.5); Eosinophils # (Auto) 0.7 Thou/mm3 (0.0-0.5); Eosinophils % (Auto) 9 % (0-10); Hemoglobin 9.9 g/dL (12.0-16.0); Immature Granulocytes % (Auto) 0 % (0-0); Immature Granulocytes Auto 0.02 Thou/mm3 (0.00-0.00); Lymphocytes # (Auto) 0.9 Thou/mm3 (1.0-4.8); Lymphocytes % (Auto) 13 % (10-50); Mean Corpuscular HGB Conc 34.1 g/dl (31.0-37.0); Mean Corpuscular Hemoglobin 31.4 pg (25.0-35.0); Mean Corpuscular Volume 92 fL (80-100); Monocytes # (Auto) 0.9 Thou/mm3 (0.0-0.8); Monocytes % (Auto) 13 % (0-12); Neutrophils # (Auto) 4.6 Thou/mm3 (1.8-7.7); Neutrophils % (Auto) 64 % (37-80); Nucleated Red Blood Cell % 0 /100 WBC (0); Platelet Count 195 Thou/mm3 (140-440); RDW Standard Deviation 44.2 fL (36.4-46.3); Red Blood Count 3.15 Miln/mm3 (4.00-5.20); White Blood Count 7.2 Thou/mm3 (3.6-11.0)
[2024-08-30 05:51] LABS: Alanine Aminotransferase 10 U/L (10-49); Albumin, Serum 3.2 gm/dL (3.4-4.8); Albumin/Globulin Ratio 1.4 (1.2-2.2); Alkaline Phosphatase 87 U/L (46-116); Anion Gap 8 (7-16); Aspartate Amino Transferase 10 U/L (0-34); BUN/Creatinine Ratio 37 Ratio (12-20); Bilirubin,Total 0.4 mg/dL (0.3-1.2); Blood Urea Nitrogen 11 mg/dL (9-23); Calcium 8.3 mg/dL (8.3-10.6); Calcium (Corrected) 8.9 mg/dL (8.5-10.1); Carbon Dioxide 26.2 mMol/L (20.0-31.0); Chloride 102 mMol/L (98-107); Creatinine (Component) 0.3 mg/dL (0.6-1.3); Estimated Creatinine Clearance 180.4 mL/min (>60); Globulin 2.3 gm/dL (2.3-3.5); Glucose 107 mg/dL (74-106); Osmolality,Calculated 271 (275-295); Potassium 3.5 mMol/L (3.4-5.1); Sodium 136 mMol/L (136-145); Total Protein 5.5 gm/dL (5.7-8.2); eGFR > 60 See Note
[2024-08-30] MEDS: carBAMazepine 100 MG CHEW 300 MG PO ×2 (08:21→21:20)
[2024-08-30] MEDS: levETIRAcetam 250 MG TABLET 1500 MG PO ×2 (08:22→21:21)
[2024-08-30] MEDS: TAMSULOSIN HCL 0.4 MG CAPSULE PO (08:22)
[2024-08-30] MEDS: PANTOPRAZOLE 40 MG TABLET PO (08:22)
[2024-08-30] MEDS: SENNA TABLET 1 TAB PO (08:22)
--- NOTE | 2024-08-30 09:46 | ESPR_ITS ---
<Statement entered by Berhane Perdomo MD - 09/01/24 12:30> I personally examined the patient evaluated the cardiac risk for surgery patient has multiple medical problems clinically appears to be doing stable no cardiac decompensation no cardiac history is low cardiac risk for surgery proceed with surgery as scheduled if necessary all essential components of the consultation report is reviewed and agree with the treatment plan recommendation as documented by PGY 3 Dr ANDERSON Documentation for date of: 08/30/24 Subjective Subjective Interval history: Overnight events, lab/imaging results, and notes reviewed. Patient examined bedside, denies any medical complaints, refusing to answer questions. Has been cleared for orthopedic surgery from cardiology standpoint. Exam Vital Signs Temp Pulse Resp BP Pulse Ox O2 Del Method O2 Flow Rate 99 F 80 18 161/76 H 97 Room Air 1 08/30/24 08:00 08/30/24 08:00 08/30/24 08:00 08/30/24 08:00 08/30/24 08:00 08/30/24 08:00 08/29/24 20:00 Narrative Exam General: AOx2, in no acute distress HEENT: Atraumatic/normocephalic, JOSE CRUZ Heart: RRR, S1 and S2 without clicks or murmurs Lungs: Clear on auscultation bilaterally, no difficulty breathing Abdomen: Soft, nontender. Bowel sounds present on all quadrants Skin: Intact, no cyanosis noted Vascular: Peripheral pulses palpable Neuro: No focal neurological deficits noted on appearance Objective Labs 08/30/24 04:38 08/30/24 04:38 Labs: Laboratory Results - last 24 hr 08/30/24 04:38 WBC 7.2 D RBC 3.15 L Hgb 9.9 L Hct 29.0 L MCV 92 MCH 31.4 MCHC 34.1 RDW Std Deviation 44.2 Plt Count 195 Neut % (Auto) 64 Lymph % (Auto) 13 [place] % (Auto) 13 H Eos % (Auto) 9 Baso % (Auto) 0 Neut # (Auto) 4.6 Lymph # (Auto) 0.9 L [place] # (Auto) 0.9 H Eos # (Auto) 0.7 H Baso # (Auto) 0.0 Immature Gran # (Auto) 0.02 H Absolute Nucleated RBC 0.00 Immature Gran % 0 Nucleated RBC % 0 Sodium 136 Potassium 3.5 Chloride 102 Carbon Dioxide 26.2 Anion Gap 8 BUN 11 Creatinine 0.3 L Estim Creat Clear Calc 180.4 eGFR > 60 BUN/Creatinine Ratio 37 H Glucose 107 H Calculated Osmolality 271 L Calcium 8.3 Corrected Calcium 8.9 Total Bilirubin 0.4 AST 10 ALT 10 Alkaline Phosphatase 87 Total Protein 5.5 L Albumin 3.2 L Globulin 2.3 Albumin/Globulin Ratio 1.4 Quality Measures Quality Measures none Advance care planning discussed with:: patient Assessment & Plan Assessment Current Active Medications: Generic Name Dose Route Start Last Admin Trade Name Freq PRN Reason Stop Dose Admin Acetaminophen 650 mg 08/27/24 23:24 Acetaminophen 325 Mg Tablet PO 09/26/24 23:23 Q6H PRN Fever >100 or pain 1-3 Hydrocodone Bitart/Acetaminophen 1 tab 08/27/24 23:30 Hydrocodone/Apap 5/325 Tablet PO 09/01/24 23:29 Q4HR PRN PAIN SCALE 4-6 (Moderate Carbamazepine 300 mg 08/28/24 21:00 08/30/24 08:21 Carbamazepine 100 Mg Chew PO 09/27/24 20:59 300 mg BID BHARAT Administration Diltiazem HCl 180 mg 08/28/24 21:00 08/29/24 21:21 Diltiazem Cd 180 Mg Capcr PO 09/27/24 20:59 180 mg HS BHARAT Administration Heparin Sodium (Porcine) 5,000 unit 08/29/24 14:00 08/30/24 05:11 Heparin Sod Inj 5000 Unit/Ml Vial SC 09/12/24 13:59 5,000 unit Q8HR BHARAT Administration Levetiracetam 1,500 mg 08/27/24 23:45 08/30/24 08:22 Levetiracetam 250 Mg Tablet PO 09/26/24 23:44 1,500 mg BID BHARAT Administration Lorazepam 2 mg 08/28/24 15:28 Lorazepam 2 Mg/Ml Vial IVP 09/02/24 15:27 Q30M PRN SEIZURES Ondansetron HCl 4 mg 08/27/24 23:24 Ondansetron Inj 2 Mg/Ml Inj 2 Ml IV 09/26/24 23:23 Q6H PRN NAUSEA OR VOMITING Protocol Pantoprazole Sodium 40 mg 08/30/24 09:00 08/30/24 08:22 Pantoprazole 40 Mg Tablet PO 09/27/24 08:59 40 mg QDAY BHARAT Administration Sennosides 1 tab 08/29/24 09:00 08/30/24 08:22 Senna Tablet PO 09/28/24 08:59 1 tab QDAY BHARAT Administration Protocol Tamsulosin HCl 0.4 mg 08/28/24 09:00 08/30/24 08:22 Tamsulosin Hcl 0.4 Mg Capsule PO 09/27/24 08:59 0.4 mg QDAY BHARAT Administration Plan Patient is a 69-year-old female, past medical history of developmental delay, cerebral palsy, history of seizures, patient is oriented to self and person but is only able to provide limited history, though she denies having a fall, though she has bruising on her nose and forehead, does not volunteer any information about how she hurt her hip. So the H&P completed from chart review, patient was found to have witnessed GTC seizures at the back of a van that she was riding in, and brought her to the emergency room, complaining of pain right hip. Imaging studies showed right hip intertrochanteric fracture, orthopedic surgeon Dr. Watkins was consulted for possible surgical intervention. Per orthopedic surgeon Dr. Watkins, cardiac and GI clearance clearance will be required prior to surgery as patient is high risk for surgery due to comorbidities. 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 Cardiology consulted for preop clearance prior to surgery. #Preop cardiac assessment Revised cardiac index for preop risk - RCRI score is 0, 3.9% risk of major cardiac event. RICCO score 0.3% risk of major cardiac event IntraOp operatively or immediately postop. Given patient has prior bedbound status, functional capacity is likely <4 METS. poor functional capacity, but orthopedic surgery generally considered low risk. Prior echocardiogram in July was not an adequate study, EF was 55 to 60%, aortic sclerosis. EKG shows sinus rhythm and Rt. bundle-branch block . Eliquis 2.5mg BID noted in home medication list Per orthopedic surgeon, no plans for immediate or emergency surgery, will wait for GI recommendations ? Currently on DVT prophylaxis with subcutaneous heparin ? Low risk for surgery, cleared for orthopedic surgery from cardiology standpoint #Peripheral arterial disease Lower extremity duplex scan was done which was reported as consistent with obstructive arterial disease, LUL 1.9 Radiology recommended getting CTA with abdominal aorta iliofemoral runoff . but 1.9 LUL, which is normal, duplex scan shows triphasic flow upto to dorsalis pedis a. pt has no ulcers or discolorations suggestive of arterial occlusion. per cardiology no further interventions or investigations required #History of hypertension ? Home medications include Cardizem 180 ER daily and metoprolol succinate 25 mg, and losartan 100 mg daily #History of developmental delay #History of seizures #Cerebral palsy ?Management per primary team Patient case discussed with attending physician Dr. Conor Anderson, DO PGY-3
[2024-08-30] MEDS: LOSARTAN POTASSIUM 25 MG TABLET 100 MG PO (11:15)
[2024-08-30] MEDS: LEVOFLOXACIN/D5W 750MG IVPB 750 MG/150 ML BAG 100 MG IV (12:09)
[2024-08-30] MEDS: hydrALAZINE HCL 25 MG TABLET PO ×2 (13:41→21:21)
--- NOTE | 2024-08-30 14:32 | ESPR_ITS ---
Documentation for date of: 08/30/24 Subjective Subjective Interval history: No acute events overnight.?Patient seen and examined at bedside this AM.?Patient continues to endorse pain of the right hip area. Labs and vitals were reviewed.?WBC downtrended. No further complaints at this time. Cardio gave clearance for surgery. However Dr. Mancia is requesting pancreatic mass workup. IR guided biopsy was ordered by GI. Will await Dr. Mancia's plans for surgery. Review of systems otherwise negative except what is mentioned above. Exam Vital Signs Temp Pulse Resp BP Pulse Ox O2 Del Method O2 Flow Rate 97.7 F 89 17 142/74 H 96 Room Air 1 08/30/24 12:00 08/30/24 13:41 08/30/24 12:00 08/30/24 13:41 08/30/24 12:00 08/30/24 12:00 08/29/24 20:00 Narrative Exam Constitutional: Well nourished and in no acute distress CVS: RRR, S1 and S2 present, no murmurs, rubs or gallops . RESP: CTAB, no SOB, no rales, rhonchi or wheezing. No respiratory Distress GI: Normal BS, Nontender/Nondistended. MSK: Limited motion on the right Hip due to pain Skin: Warm to touch, Dry. No rashes or lesions. 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 Sensation grossly intact. Psych: (AAO) x1 Objective Labs 08/31/24 04:52 08/31/24 04:52 Labs: Laboratory Results - last 24 hr 08/30/24 04:38 WBC 7.2 D RBC 3.15 L Hgb 9.9 L Hct 29.0 L MCV 92 MCH 31.4 MCHC 34.1 RDW Std Deviation 44.2 Plt Count 195 Neut % (Auto) 64 Lymph % (Auto) 13 [place] % (Auto) 13 H Eos % (Auto) 9 Baso % (Auto) 0 Neut # (Auto) 4.6 Lymph # (Auto) 0.9 L [place] # (Auto) 0.9 H Eos # (Auto) 0.7 H Baso # (Auto) 0.0 Immature Gran # (Auto) 0.02 H Absolute Nucleated RBC 0.00 Immature Gran % 0 Nucleated RBC % 0 Sodium 136 Potassium 3.5 Chloride 102 Carbon Dioxide 26.2 Anion Gap 8 BUN 11 Creatinine 0.3 L Estim Creat Clear Calc 180.4 eGFR > 60 BUN/Creatinine Ratio 37 H Glucose 107 H Calculated Osmolality 271 L Calcium 8.3 Corrected Calcium 8.9 Total Bilirubin 0.4 AST 10 ALT 10 Alkaline Phosphatase 87 Total Protein 5.5 L Albumin 3.2 L Globulin 2.3 Albumin/Globulin Ratio 1.4 Quality Measures Quality Measures none Advance care planning discussed with:: patient Assessment & Plan Assessment Current Active Medications: Generic Name Dose Route Start Last Admin Trade Name Freq PRN Reason Stop Dose Admin Acetaminophen 650 mg 08/27/24 23:24 Acetaminophen 325 Mg Tablet PO 09/26/24 23:23 Q6H PRN Fever >100 or pain 1-3 Hydrocodone Bitart/Acetaminophen 1 tab 08/27/24 23:30 Hydrocodone/Apap 5/325 Tablet PO 09/01/24 23:29 Q4HR PRN PAIN SCALE 4-6 (Moderate Carbamazepine 300 mg 08/28/24 21:00 08/30/24 08:21 Carbamazepine 100 Mg Chew PO 09/27/24 20:59 300 mg BID BHARAT Administration Diltiazem HCl 180 mg 08/28/24 21:00 08/29/24 21:21 Diltiazem Cd 180 Mg Capcr PO 09/27/24 20:59 180 mg HS BHARAT Administration Heparin Sodium (Porcine) 5,000 unit 08/29/24 14:00 08/30/24 13:41 Heparin Sod Inj 5000 Unit/Ml Vial SC 09/12/24 13:59 5,000 unit Q8HR BHARAT Administration Hydralazine HCl 25 mg 08/30/24 14:00 08/30/24 13:41 Hydralazine Hcl 25 Mg Tablet PO 09/29/24 13:59 25 mg TID BHARAT Administration Levofloxacin/Dextrose 750 mg in 150 mls @ 100 mls/hr 08/30/24 11:30 08/30/24 12:09 Levaquin Ivpb IV 09/03/24 11:29 100 mls/hr QDAY BHARAT Administration Levetiracetam 1,500 mg 08/27/24 23:45 08/30/24 08:22 Levetiracetam 250 Mg Tablet PO 09/26/24 23:44 1,500 mg BID BHARAT Administration Lorazepam 2 mg 08/28/24 15:28 Lorazepam 2 Mg/Ml Vial IVP 09/02/24 15:27 Q30M PRN SEIZURES Losartan Potassium 100 mg 08/30/24 11:15 08/30/24 11:15 Losartan Potassium 25 Mg Tablet PO 09/29/24 11:14 100 mg QDAY BHARAT Administration Ondansetron HCl 4 mg 08/27/24 23:24 Ondansetron Inj 2 Mg/Ml Inj 2 Ml IV 09/26/24 23:23 Q6H PRN NAUSEA OR VOMITING Protocol Pantoprazole Sodium 40 mg 08/30/24 09:00 08/30/24 08:22 Pantoprazole 40 Mg Tablet PO 09/27/24 08:59 40 mg QDAY BHARAT Administration Sennosides 1 tab 08/29/24 09:00 08/30/24 08:22 Senna Tablet PO 09/28/24 08:59 1 tab QDAY BHARAT Administration Protocol Tamsulosin HCl 0.4 mg 08/28/24 09:00 08/30/24 08:22 Tamsulosin Hcl 0.4 Mg Capsule PO 09/27/24 08:59 0.4 mg QDAY BHARAT Administration Plan 69 y/o female with PMHx of cerebral palsy, developmental delay, hypertension, seizures, bedbound since 2020 (takes Eliquis DVT prophylaxis) and urinary retention who is admitted for acute intertrochanteric fracture of R hip. #Acute intertrochanteric fracture of the right hip #Hx of seizures Patient is bedbound and is presenting from a skilled nursing is under conservatorship by Dr. Arango Apparently patient had a witnessed seizure lasting 30 seconds and presented to the ED Patient is on home Keppra 1500 mg twice daily and carbamazepine 300 mg twice daily Femur x-ray and CT of the hip confirm acute intertrochanteric fracture of the right hip Dr Mancia, orthopedic surgery, consulted in the ED Orthopedic surgery is requesting cardiac and GI clearance as the patient is high risk for surgery Echo done in July 2024 shows: Normal LV size and function. Estimated LVEF 55 to 60%. Diastolic function indeterminate. Normal RV size and function. Mild TR. Mild aortic valve sclerosis without stenosis Arterial duplex ultrasound ordered by orthopedic surgery confirms degree of PAD, radiology recommends CTA Plan: Ortho consult, appreciate recs Cardiology consulted, Patient is cleared by cardiology Continue home seizure medications, neurology recommends IV Ativan for breakthrough seizures Pain controlled Seizure precautions Neuro checks q4h Will contact Dr. 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 Jennings Triglycerides 94, cholesterol 135, LDL 67, HDL 49 Plan: Continue with home Cardizem 180 CD #Bedbound #History of cerebral palsy #Developmental delay Patient is conserved, takes Eliquis she is mainly bedbound for DVT prophylaxis Dr. Arango is the patient's conservator Plan: Holding Eliquis 2.5 mg twice daily Will contact Dr. Arango regarding need for surgical intervention Hospital Management: Diet: Cardiac, dysphagia II Lines: PIV Bowel: Senna DVT prophylaxis: Eliquis 2.5 mg BID GI prophylaxis: Protonix Dispo: Pending surgical clearance for trochanteric hip fracture repair versus pain management and conservative treatment based on what conservator wants to do. Code: Full Patient plan of care was discussed with the attending physician, Dr. Burns. Louise James, PGY-2 Attending Provider Attestation/Addendum I reviewed labs, imaging, EKG, home medications and prior available records. Face to face evaluation was performed by me. I have personally examined the patient and discussed assessment and plan with the IM team. I reviewed the resident note and agree with the plan with exceptions as below. Right intertrochanteric hip fracture Seizure disorder Developmental delay/cerebral palsy Pancreatic mass Leukocytosis, unspecific Will touch base with Dr. Arango for her decisions Management of pain as needed Consulted GI for pancreatic mass workup prior to OR: Recommended to biopsy by IR Consulted neurology in the setting of seizure episode. Seizure precautions. Resumed home antiepileptic medications. Ativan as needed for breakthrough seizures Consulted orthopedic surgery: Conservative management for now Consulted cardiology: Okay to proceed to surgery if indicated. Ordered echocardiogram Resumed BP medications losartan, hydralazine, and Cardizem Trend WBC
--- NOTE | 2024-08-30 18:38 | PD.IMPROG ---
Documentation for date of: 08/30/24 Subjective Subjective Interval history: Patient evaluated Ultrasound-guided biopsy of the pericardial mass ordered for tomorrow Exam Vital Signs Temp Pulse Resp BP Pulse Ox O2 Del Method O2 Flow Rate 98.6 F 97 18 118/65 98 Room Air 1 08/30/24 16:00 08/30/24 16:00 08/30/24 16:00 08/30/24 16:00 08/30/24 16:00 08/30/24 16:00 08/29/24 20:00 Objective Labs 08/30/24 04:38 08/30/24 04:38 Labs: Laboratory Results - last 24 hr 08/30/24 04:38 WBC 7.2 D RBC 3.15 L Hgb 9.9 L Hct 29.0 L MCV 92 MCH 31.4 MCHC 34.1 RDW Std Deviation 44.2 Plt Count 195 Neut % (Auto) 64 Lymph % (Auto) 13 [place] % (Auto) 13 H Eos % (Auto) 9 Baso % (Auto) 0 Neut # (Auto) 4.6 Lymph # (Auto) 0.9 L [place] # (Auto) 0.9 H Eos # (Auto) 0.7 H Baso # (Auto) 0.0 Immature Gran # (Auto) 0.02 H Absolute Nucleated RBC 0.00 Immature Gran % 0 Nucleated RBC % 0 Sodium 136 Potassium 3.5 Chloride 102 Carbon Dioxide 26.2 Anion Gap 8 BUN 11 Creatinine 0.3 L Estim Creat Clear Calc 180.4 eGFR > 60 BUN/Creatinine Ratio 37 H Glucose 107 H Calculated Osmolality 271 L Calcium 8.3 Corrected Calcium 8.9 Total Bilirubin 0.4 AST 10 ALT 10 Alkaline Phosphatase 87 Total Protein 5.5 L Albumin 3.2 L Globulin 2.3 Albumin/Globulin Ratio 1.4 Impressions Impression: Pancreatic mass Ultrasound-guided biopsy ordered tomorrow by IR CA 19?9 gabapentin Assessment & Plan A&P Narrative # Ultrasound-guided pancreatic head mass CA 19?9 level Ultrasound-guided fine-needle biopsy by IR scheduled for Saturday or Saturday Will follow the patient Other medical problems include # Right hip fracture # 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
[2024-08-30] MEDS: DILTIAZEM CD 180 MG CAPCR PO (21:21)
[2024-08-31] VITALS (10 sets, daily range): BP systolic 131–152; BP diastolic 68–81; PULSE 78–92; RESP 17–18; TEMP 36.1–37.4; O2SAT 95–99; BMI 29.9
--- NOTE | 2024-08-31 00:28 | PD.NEUROPROG ---
Documentation for date of: 08/31/24 Subjective Subjective Interval history: Patient was seen and MedSurg today at the bedside. No seizures reported after admission. She is refusing to eat most of the meals. Exam - Neurology Vital Signs Temp Pulse Resp BP Pulse Ox O2 Del Method O2 Flow Rate 98.8 F 92 18 140/74 H 95 Room Air 1 08/31/24 00:00 08/31/24 00:00 08/31/24 00:00 08/31/24 00:00 08/31/24 00:00 08/31/24 00:00 08/29/24 20:00 Narrative Exam General: AAOx2, developmentally delayed, resting comfortably in bed. Bruising on nose and right forehead. Cardiovascular: Regular rate and rhythm, no murmurs, rubs, or gallops. Pulmonary: Chest clear to auscultation bilaterally. GI: Nontender to palpitation in lower abdomen, no guarding, active bowel sounds. Extremities: No edema noted lower extremities. Neuro: AAOx2, no focal motor or sensory deficits in the UE or LE bilat Objective Labs 08/30/24 04:38 08/30/24 04:38 Labs: Laboratory Results - last 24 hr 08/30/24 04:38 WBC 7.2 D RBC 3.15 L Hgb 9.9 L Hct 29.0 L MCV 92 MCH 31.4 MCHC 34.1 RDW Std Deviation 44.2 Plt Count 195 Neut % (Auto) 64 Lymph % (Auto) 13 [place] % (Auto) 13 H Eos % (Auto) 9 Baso % (Auto) 0 Neut # (Auto) 4.6 Lymph # (Auto) 0.9 L [place] # (Auto) 0.9 H Eos # (Auto) 0.7 H Baso # (Auto) 0.0 Immature Gran # (Auto) 0.02 H Absolute Nucleated RBC 0.00 Immature Gran % 0 Nucleated RBC % 0 Sodium 136 Potassium 3.5 Chloride 102 Carbon Dioxide 26.2 Anion Gap 8 BUN 11 Creatinine 0.3 L Estim Creat Clear Calc 180.4 eGFR > 60 BUN/Creatinine Ratio 37 H Glucose 107 H Calculated Osmolality 271 L Calcium 8.3 Corrected Calcium 8.9 Total Bilirubin 0.4 AST 10 ALT 10 Alkaline Phosphatase 87 Total Protein 5.5 L Albumin 3.2 L Globulin 2.3 Albumin/Globulin Ratio 1.4 Assessment & Plan Additional Assessment & Plan Additional Plan: Patient is a 69 y/o female with PMHx of cerebral palsy, developmental delay, hypertension, seizures, bedbound since 2020 (takes Eliquis DVT prophylaxis) and urinary retention who is admitted for acute intertrochanteric fracture of R hip. #History of cerebral palsy #History of seizures Will increase carbamazepine to 300 mg twice daily Will check carbamazepine level Continue with Keppra 1500 mg twice daily As needed benzo for breakthrough seizures #Acute intertrochanteric fracture of the right hip #Hx of Urinary retention #Pancreatic mass #History of hypertension #Hypotension #History of hyperlipidemia #Bedbound #History of cerebral palsy #Developmental delay Continue management per primary team
[2024-08-31 05:59] LABS: Basophils % (Auto) 0 % (0-2.5); Eosinophils # (Auto) 0.5 Thou/mm3 (0.0-0.5); Eosinophils % (Auto) 7 % (0-10); Hemoglobin 9.5 g/dL (12.0-16.0); Immature Granulocytes % (Auto) 0 % (0-0); Immature Granulocytes Auto 0.03 Thou/mm3 (0.00-0.00); Lymphocytes # (Auto) 1.4 Thou/mm3 (1.0-4.8); Lymphocytes % (Auto) 18 % (10-50); Mean Corpuscular HGB Conc 33.9 g/dl (31.0-37.0); Mean Corpuscular Hemoglobin 30.7 pg (25.0-35.0); Mean Corpuscular Volume 91 fL (80-100); Monocytes # (Auto) 0.9 Thou/mm3 (0.0-0.8); Monocytes % (Auto) 12 % (0-12); Neutrophils # (Auto) 4.6 Thou/mm3 (1.8-7.7); Neutrophils % (Auto) 62 % (37-80); Nucleated Red Blood Cell % 0 /100 WBC (0); Platelet Count 256 Thou/mm3 (140-440); RDW Standard Deviation 42.7 fL (36.4-46.3); Red Blood Count 3.09 Miln/mm3 (4.00-5.20); White Blood Count 7.4 Thou/mm3 (3.6-11.0)
[2024-08-31 06:49] LABS: Alanine Aminotransferase 13 U/L (10-49); Albumin, Serum 3.2 gm/dL (3.4-4.8); Albumin/Globulin Ratio 1.5 (1.2-2.2); Alkaline Phosphatase 84 U/L (46-116); Anion Gap 9 (7-16); Aspartate Amino Transferase 13 U/L (0-34); BUN/Creatinine Ratio 27 Ratio (12-20); Bilirubin,Total 0.5 mg/dL (0.3-1.2); Blood Urea Nitrogen 8 mg/dL (9-23); Calcium 8.1 mg/dL (8.3-10.6); Calcium (Corrected) 8.7 mg/dL (8.5-10.1); Carbon Dioxide 24.8 mMol/L (20.0-31.0); Chloride 100 mMol/L (98-107); Creatinine (Component) 0.3 mg/dL (0.6-1.3); Estimated Creatinine Clearance 180.4 mL/min (>60); Globulin 2.2 gm/dL (2.3-3.5); Glucose 106 mg/dL (74-106); Osmolality,Calculated 266 (275-295); Potassium 3.4 mMol/L (3.4-5.1); Sodium 134 mMol/L (136-145); Total Protein 5.4 gm/dL (5.7-8.2); eGFR > 60 See Note
[2024-08-31] MEDS: LOSARTAN POTASSIUM 25 MG TABLET 100 MG PO (09:17)
[2024-08-31] MEDS: levETIRAcetam 250 MG TABLET 1500 MG PO ×2 (09:18→21:13)
[2024-08-31] MEDS: LEVOFLOXACIN/D5W 750MG IVPB 750 MG/150 ML BAG 100 MG IV (09:19)
[2024-08-31] MEDS: carBAMazepine 100 MG CHEW 300 MG PO ×2 (09:19→21:14)
[2024-08-31] MEDS: PANTOPRAZOLE 40 MG TABLET PO (09:19)
[2024-08-31] MEDS: TAMSULOSIN HCL 0.4 MG CAPSULE PO (09:19)
[2024-08-31] MEDS: SENNA TABLET 1 TAB PO (09:19)
--- NOTE | 2024-08-31 09:48 | ESPR_ITS ---
Documentation for date of: 08/31/24 Subjective Subjective Interval history: Patient seen and assessed at bedside this morning. Per nurse patient has been doing well. Patient nodded no to any active complaints. No seizures since admission. Exam Vital Signs Temp Pulse Resp BP Pulse Ox O2 Del Method O2 Flow Rate 97.2 F 79 17 149/76 H 97 Nasal Cannula 1 08/31/24 08:00 08/31/24 09:17 08/31/24 08:00 08/31/24 09:17 08/31/24 08:00 08/31/24 08:00 08/31/24 08:00 Narrative Exam Constitutional: Well nourished and in no acute distress CVS: RRR, S1 and S2 present, no murmurs, rubs or gallops . RESP: CTAB, no SOB, no rales, rhonchi or wheezing. No respiratory Distress GI: Normal BS, Nontender/Nondistended. MSK: Limited motion on the right Hip due to pain Skin: Warm to touch, Dry. No rashes or lesions. 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 Sensation grossly intact. Psych: (AAO) x1 Objective Labs 09/01/24 04:42 09/01/24 04:42 Labs: Laboratory Results - last 24 hr 08/31/24 04:52 WBC 7.4 RBC 3.09 L Hgb 9.5 L Hct 28.0 L MCV 91 MCH 30.7 MCHC 33.9 RDW Std Deviation 42.7 Plt Count 256 D Neut % (Auto) 62 Lymph % (Auto) 18 [place] % (Auto) 12 Eos % (Auto) 7 Baso % (Auto) 0 Neut # (Auto) 4.6 Lymph # (Auto) 1.4 [place] # (Auto) 0.9 H Eos # (Auto) 0.5 Baso # (Auto) 0.0 Immature Gran # (Auto) 0.03 H Absolute Nucleated RBC 0.00 Immature Gran % 0 Nucleated RBC % 0 Sodium 134 L Potassium 3.4 Chloride 100 Carbon Dioxide 24.8 Anion Gap 9 BUN 8 L Creatinine 0.3 L Estim Creat Clear Calc 180.4 eGFR > 60 BUN/Creatinine Ratio 27 H Glucose 106 Calculated Osmolality 266 L Calcium 8.1 L Corrected Calcium 8.7 Total Bilirubin 0.5 AST 13 ALT 13 Alkaline Phosphatase 84 Total Protein 5.4 L Albumin 3.2 L Globulin 2.2 L Albumin/Globulin Ratio 1.5 Quality Measures Quality Measures none Advance care planning discussed with:: patient Assessment & Plan Assessment Current Active Medications: Generic Name Dose Route Start Last Admin Trade Name Freq PRN Reason Stop Dose Admin Acetaminophen 650 mg 08/27/24 23:24 Acetaminophen 325 Mg Tablet PO 09/26/24 23:23 Q6H PRN Fever >100 or pain 1-3 Hydrocodone Bitart/Acetaminophen 1 tab 08/27/24 23:30 Hydrocodone/Apap 5/325 Tablet PO 09/01/24 23:29 Q4HR PRN PAIN SCALE 4-6 (Moderate Carbamazepine 300 mg 08/28/24 21:00 08/31/24 09:19 Carbamazepine 100 Mg Chew PO 09/27/24 20:59 300 mg BID BHARAT Administration Diltiazem HCl 180 mg 08/28/24 21:00 08/30/24 21:21 Diltiazem Cd 180 Mg Capcr PO 09/27/24 20:59 180 mg HS BHARAT Administration Hydralazine HCl 25 mg 08/30/24 14:00 08/31/24 05:18 Hydralazine Hcl 25 Mg Tablet PO 09/29/24 13:59 Not Given TID BHARAT Levofloxacin/Dextrose 750 mg in 150 mls @ 100 mls/hr 08/30/24 11:30 08/31/24 09:19 Levaquin Ivpb IV 09/03/24 11:29 100 mls/hr QDAY BHARAT Administration Levetiracetam 1,500 mg 08/27/24 23:45 08/31/24 09:18 Levetiracetam 250 Mg Tablet PO 09/26/24 23:44 1,500 mg BID BHARAT Administration Lorazepam 2 mg 08/28/24 15:28 Lorazepam 2 Mg/Ml Vial IVP 09/02/24 15:27 Q30M PRN SEIZURES Losartan Potassium 100 mg 08/30/24 11:15 08/31/24 09:17 Losartan Potassium 25 Mg Tablet PO 09/29/24 11:14 100 mg QDAY BHARAT Administration Ondansetron HCl 4 mg 08/27/24 23:24 Ondansetron Inj 2 Mg/Ml Inj 2 Ml IV 09/26/24 23:23 Q6H PRN NAUSEA OR VOMITING Protocol Pantoprazole Sodium 40 mg 08/30/24 09:00 08/31/24 09:19 Pantoprazole 40 Mg Tablet PO 09/27/24 08:59 40 mg QDAY BHARAT Administration Sennosides 1 tab 08/29/24 09:00 08/31/24 09:19 Senna Tablet PO 09/28/24 08:59 1 tab QDAY BHARAT Administration Protocol Tamsulosin HCl 0.4 mg 08/28/24 09:00 08/31/24 09:19 Tamsulosin Hcl 0.4 Mg Capsule PO 09/27/24 08:59 0.4 mg QDAY BHARAT Administration Plan Patient is a 69 y/o female with PMHx of cerebral palsy, developmental delay, hypertension, seizures, bedbound since 2020 (takes Eliquis DVT prophylaxis) and urinary retention who is admitted for acute intertrochanteric fracture of R hip. #History of cerebral palsy #History of seizures Continue carbamazepine to 300 mg twice daily Pending carbamazepine level Continue with Keppra 1500 mg twice daily As needed benzo for breakthrough seizures #Acute intertrochanteric fracture of the right hip #Hx of Urinary retention #Pancreatic mass #History of hypertension #Hypotension #History of hyperlipidemia #Bedbound #History of cerebral palsy #Developmental delay Continue management per primary team Case discussed with attending Dr Shalini Clements MD PGY3 Attending Provider Attestation/Addendum I personally have seen and examined the patient at the bedside and I agree with resident's findings, assessment and plan of care. Continue with the current management including Tegretol and levetiracetam. Follow-up with carbamazepine level.
--- NOTE | 2024-08-31 12:52 | ESPR_ITS ---
<Statement entered by Louise James MD - 09/01/24 07:43> Patient was seen and examined by me personally. I have directly supervised and reviewed documentation by the team resident and agree with its findings with any exceptions or additional findings as below. Plan of care was discussed with the attending, Dr. Burns. Pending goals discussion with Dr. Arango and Dr. Mancia regarding surgery. Louise James, PGY-2 Documentation for date of: 08/31/24 Subjective Subjective Interval history: 08/31/2024: No acute overnight events to report. Patient seen and examined in hospital bed remains awake and answering questions with one-word answers at normal baseline. Spoke with patient's apparent conservator Dr. Arango who stated that he is actually not the patient's conservator but that decision making would be based on medical team and his input. Per Dr. Arango, as the patient is chronically bedbound and apparently sustained a fracture while having a torque like maneuver while sitting in a wheelchair there is very little benefit in going forward with surgery. Dr. Arango states that he will speak with Dr. Mancia and present his concerns. In the meantime, Dr Mancia is requesting GI clearance regarding pancreatic mass which was seen on CT imaging. Cardiology has cleared the patient for surgery if it were to happen. Will continue to monitor the patient and advocate to avoid unnecessary procedures and invasive workup at this time. Exam Vital Signs Temp Pulse Resp BP Pulse Ox O2 Del Method O2 Flow Rate 97.0 F 78 18 152/75 H 96 Nasal Cannula 1 08/31/24 12:08/31/24 12:08/31/24 12:08/31/24 12:08/31/24 12:08/31/24 12:08/31/24 12:00 Narrative Exam Constitutional: Well nourished and in no acute distress CVS: RRR, S1 and S2 present, no murmurs, rubs or gallops . RESP: CTAB, no SOB, no rales, rhonchi or wheezing. No respiratory Distress GI: Normal BS, Nontender/Nondistended. MSK: Limited motion on the right Hip due to pain Skin: Warm to touch, Dry. No rashes or lesions. No hematomas Neuro: vehicle trimmer II-XII grossly intact. Sensation grossly intact. Psych: (AAO) x1 Objective Labs 08/31/24 04:52 08/31/24 04:52 Labs: Laboratory Results - last 24 hr 08/31/24 04:52 WBC 7.4 RBC 3.09 L Hgb 9.5 L Hct 28.0 L MCV 91 MCH 30.7 MCHC 33.9 RDW Std Deviation 42.7 Plt Count 256 D Neut % (Auto) 62 Lymph % (Auto) 18 [place] % (Auto) 12 Eos % (Auto) 7 Baso % (Auto) 0 Neut # (Auto) 4.6 Lymph # (Auto) 1.4 [place] # (Auto) 0.9 H Eos # (Auto) 0.5 Baso # (Auto) 0.0 Immature Gran # (Auto) 0.03 H Absolute Nucleated RBC 0.00 Immature Gran % 0 Nucleated RBC % 0 Sodium 134 L Potassium 3.4 Chloride 100 Carbon Dioxide 24.8 Anion Gap 9 BUN 8 L Creatinine 0.3 L Estim Creat Clear Calc 180.4 eGFR > 60 BUN/Creatinine Ratio 27 H Glucose 106 Calculated Osmolality 266 L Calcium 8.1 L Corrected Calcium 8.7 Total Bilirubin 0.5 AST 13 ALT 13 Alkaline Phosphatase 84 Total Protein 5.4 L Albumin 3.2 L Globulin 2.2 L Albumin/Globulin Ratio 1.5 Quality Measures Quality Measures none Advance care planning discussed with:: other (Dr. Arango) Assessment & Plan Assessment Current Active Medications: Generic Name Dose Route Start Last Admin Trade Name Freq PRN Reason Stop Dose Admin Acetaminophen 650 mg 08/27/24 23:24 Acetaminophen 325 Mg Tablet PO 09/26/24 23:23 Q6H PRN Fever >100 or pain 1-3 Hydrocodone Bitart/Acetaminophen 1 tab 08/27/24 23:30 Hydrocodone/Apap 5/325 Tablet PO 09/01/24 23:29 Q4HR PRN PAIN SCALE 4-6 (Moderate Carbamazepine 300 mg 08/28/24 21:00 08/31/24 09:19 Carbamazepine 100 Mg Chew PO 09/27/24 20:59 300 mg BID BHARAT Administration Diltiazem HCl 180 mg 08/28/24 21:00 08/30/24 21:21 Diltiazem Cd 180 Mg Capcr PO 09/27/24 20:59 180 mg HS BHARAT Administration Hydralazine HCl 25 mg 08/30/24 14:00 08/31/24 05:18 Hydralazine Hcl 25 Mg Tablet PO 09/29/24 13:59 Not Given TID BHARAT Levetiracetam 1,500 mg 08/27/24 23:45 08/31/24 09:18 Levetiracetam 250 Mg Tablet PO 09/26/24 23:44 1,500 mg BID BHARAT Administration Lorazepam 2 mg 08/28/24 15:28 Lorazepam 2 Mg/Ml Vial IVP 09/02/24 15:27 Q30M PRN SEIZURES Losartan Potassium 100 mg 08/30/24 11:15 08/31/24 09:17 Losartan Potassium 25 Mg Tablet PO 09/29/24 11:14 100 mg QDAY BHARAT Administration Ondansetron HCl 4 mg 08/27/24 23:24 Ondansetron Inj 2 Mg/Ml Inj 2 Ml IV 09/26/24 23:23 Q6H PRN NAUSEA OR VOMITING Protocol Pantoprazole Sodium 40 mg 08/30/24 09:00 08/31/24 09:19 Pantoprazole 40 Mg Tablet PO 09/27/24 08:59 40 mg QDAY BHARAT Administration Sennosides 1 tab 08/29/24 09:00 08/31/24 09:19 Senna Tablet PO 09/28/24 08:59 1 tab QDAY BHARAT Administration Protocol Tamsulosin HCl 0.4 mg 08/28/24 09:00 08/31/24 09:19 Tamsulosin Hcl 0.4 Mg Capsule PO 09/27/24 08:59 0.4 mg QDAY BHARAT Administration Plan 69 y/o female with PMHx of cerebral palsy, developmental delay, hypertension, seizures, bedbound since 2020 (takes Eliquis DVT prophylaxis) and urinary retention who is admitted for acute intertrochanteric fracture of R hip. #Acute intertrochanteric fracture of the right hip #Hx of seizures Patient is bedbound and is presenting from a intermediate is under conservatorship by Dr. Arango Apparently patient had a witnessed seizure lasting 30 seconds and presented to the ED Patient is on home Keppra 1500 mg twice daily and carbamazepine 300 mg twice daily Femur x-ray and CT of the hip confirm acute intertrochanteric fracture of the right hip Dr Mancia, orthopedic surgery, consulted in the ED Orthopedic surgery is requesting cardiac and GI clearance as the patient is high risk for surgery Echo done in July 2024 shows: Normal LV size and function. Estimated LVEF 55 to 60%. Diastolic function indeterminate. Normal RV size and function. Mild TR. Mild aortic valve sclerosis without stenosis Arterial duplex ultrasound ordered by orthopedic surgery confirms degree of PAD Plan: Dr. Arango will speak with Dr. 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 Ultrasound-guided biopsy was considered for last visit, however does not seem to be done CA 19-9 is elevated at 57 Per previous documentation, radiologist believes this patient does not have concerning lesion and recommended repeat imaging in 3 to 6 months Plan: Dr Mancia consulted GI - pending clearance Repeat imaging of pancreas in 3 to 6 months outpatient IR guided pancreatic mass biopsy is ordered by GI, will look to discontinue this to prevent invasive workup at this time #History of hypertension #Hypotension #History of hyperlipidemia Blood pressure was measured to 70 systolic at home Clinical Physician Assistant Dr. Jennings Triglycerides 94, cholesterol 135, LDL 67, HDL 49 Plan: Continue with home Cardizem 180 CD #Bedbound #History of cerebral palsy #Developmental delay Patient is conserved, takes Eliquis she is mainly bedbound for DVT prophylaxis Dr. Arango is the patient's conservator Plan: Holding Eliquis 2.5 mg twice daily, will resume if surgery is off the table Hospital Management: Diet: Cardiac, dysphagia II Lines: PIV Bowel: Senna DVT prophylaxis: SCD GI prophylaxis: Protonix Dispo: Pending surgical clearance for trochanteric hip fracture repair versus pain management and conservative treatment based on what shared decision making between non-conservator Dr. Arango and medical team Code: Full Patient seen and examined with attending Dr. Burns and senior resident Dr. Erika Reynoso, PGY-1 Attending Provider Attestation/Addendum I reviewed labs, imaging, EKG, home medications and prior available records. Face to face evaluation was performed by me. I have personally examined the patient and discussed assessment and plan with the IM team. I reviewed the resident note and agree with the plan with exceptions as below. Right intertrochanteric hip fracture Seizure disorder Developmental delay/cerebral palsy Pancreatic mass Leukocytosis, unspecific Touched base with Dr. Arango for her decisions: He will touch base with orthopedic surgery regarding the surgical decision Management of pain as needed Consulted GI for pancreatic mass workup prior to OR: Recommended to biopsy by IR Consulted neurology in the setting of seizure episode. Seizure precautions. Resumed home antiepileptic medications. Ativan as needed for breakthrough seizures Consulted orthopedic surgery: Conservative management for now Consulted cardiology: Okay to proceed to surgery if indicated. Ordered echocardiogram Resumed BP medications losartan, hydralazine, and Cardizem Trend WBC
[2024-08-31] MEDS: hydrALAZINE HCL 25 MG TABLET PO ×2 (13:15→21:14)
--- NOTE | 2024-08-31 14:43 | ESPR_ITS ---
<Statement entered by Berhane Perdomo MD - 09/01/24 12:31> I personally examined the patient evaluated the cardiac risk for surgery patient has multiple medical problems clinically appears to be doing stable no cardiac decompensation no cardiac history is low cardiac risk for surgery proceed with surgery as scheduled if necessary all essential components of the consultation report is reviewed and agree with the treatment plan recommendation as documented by PGY 2 Documentation for date of: 08/31/24 Subjective Subjective Interval history: Patient evaluated bedside, noted to be more active than prior interactions, sitting up in bed, asymptomatic. Patient is n.p.o. today for IR guided biopsy of abdominal mass. Pending surgery for repair of fracture by orthopedics. Patient was determined to be cleared from cardiac standpoint to proceed with surgery. Exam Vital Signs Temp Pulse Resp BP Pulse Ox O2 Del Method O2 Flow Rate 97.0 F 78 18 152/75 H 96 Nasal Cannula 1 08/31/24 12:00 08/31/24 13:15 08/31/24 12:00 08/31/24 13:15 08/31/24 12:00 08/31/24 12:00 08/31/24 12:00 Narrative Exam General: AOx3, cooperative, alert Skin: Noted bruising on the nasal bridge and forehead, now resolving. HEENT: Atraumatic/normocephalic, [place], neck supple Heart: RRR, S1 and S2 without clicks or murmurs Lungs: Clear on auscultation bilaterally, no difficulty breathing Abdomen: Soft, nontender. Bowel sounds present . Vascular: Peripheral pulses palpable Neuro: No focal neurological deficits noted. Objective Labs 08/31/24 04:52 08/31/24 04:52 Labs: Laboratory Results - last 24 hr 08/31/24 04:52 WBC 7.4 RBC 3.09 L Hgb 9.5 L Hct 28.0 L MCV 91 MCH 30.7 MCHC 33.9 RDW Std Deviation 42.7 Plt Count 256 D Neut % (Auto) 62 Lymph % (Auto) 18 [place] % (Auto) 12 Eos % (Auto) 7 Baso % (Auto) 0 Neut # (Auto) 4.6 Lymph # (Auto) 1.4 [place] # (Auto) 0.9 H Eos # (Auto) 0.5 Baso # (Auto) 0.0 Immature Gran # (Auto) 0.03 H Absolute Nucleated RBC 0.00 Immature Gran % 0 Nucleated RBC % 0 Sodium 134 L Potassium 3.4 Chloride 100 Carbon Dioxide 24.8 Anion Gap 9 BUN 8 L Creatinine 0.3 L Estim Creat Clear Calc 180.4 eGFR > 60 BUN/Creatinine Ratio 27 H Glucose 106 Calculated Osmolality 266 L Calcium 8.1 L Corrected Calcium 8.7 Total Bilirubin 0.5 AST 13 ALT 13 Alkaline Phosphatase 84 Total Protein 5.4 L Albumin 3.2 L Globulin 2.2 L Albumin/Globulin Ratio 1.5 Quality Measures Quality Measures none Advance care planning discussed with:: patient Assessment & Plan Assessment Current Active Medications: Generic Name Dose Route Start Last Admin Trade Name Freq PRN Reason Stop Dose Admin Acetaminophen 650 mg 08/27/24 23:24 Acetaminophen 325 Mg Tablet PO 09/26/24 23:23 Q6H PRN Fever >100 or pain 1-3 Hydrocodone Bitart/Acetaminophen 1 tab 08/27/24 23:30 Hydrocodone/Apap 5/325 Tablet PO 09/01/24 23:29 Q4HR PRN PAIN SCALE 4-6 (Moderate Carbamazepine 300 mg 08/28/24 21:00 08/31/24 09:19 Carbamazepine 100 Mg Chew PO 09/27/24 20:59 300 mg BID BHARAT Administration Diltiazem HCl 180 mg 08/28/24 21:00 08/30/24 21:21 Diltiazem Cd 180 Mg Capcr PO 09/27/24 20:59 180 mg HS BHARAT Administration Hydralazine HCl 25 mg 08/30/24 14:00 08/31/24 13:15 Hydralazine Hcl 25 Mg Tablet PO 09/29/24 13:59 25 mg TID BHARAT Administration Levetiracetam 1,500 mg 08/27/24 23:45 08/31/24 09:18 Levetiracetam 250 Mg Tablet PO 09/26/24 23:44 1,500 mg BID BHARAT Administration Lorazepam 2 mg 08/28/24 15:28 Lorazepam 2 Mg/Ml Vial IVP 09/02/24 15:27 Q30M PRN SEIZURES Losartan Potassium 100 mg 08/30/24 11:15 08/31/24 09:17 Losartan Potassium 25 Mg Tablet PO 09/29/24 11:14 100 mg QDAY BHARAT Administration Ondansetron HCl 4 mg 08/27/24 23:24 Ondansetron Inj 2 Mg/Ml Inj 2 Ml IV 09/26/24 23:23 Q6H PRN NAUSEA OR VOMITING Protocol Pantoprazole Sodium 40 mg 08/30/24 09:00 08/31/24 09:19 Pantoprazole 40 Mg Tablet PO 09/27/24 08:59 40 mg QDAY BHARAT Administration Sennosides 1 tab 08/29/24 09:00 08/31/24 09:19 Senna Tablet PO 09/28/24 08:59 1 tab QDAY BHARAT Administration Protocol Tamsulosin HCl 0.4 mg 08/28/24 09:00 08/31/24 09:19 Tamsulosin Hcl 0.4 Mg Capsule PO 09/27/24 08:59 0.4 mg QDAY BHARAT Administration Plan Patient is a 69-year-old female, past medical history of developmental delay, cerebral palsy, history of seizures, patient is oriented to self and person but is only able to provide limited history, though she denies having a fall, though she has bruising on her nose and forehead, does not volunteer any information about how she hurt her hip. So the H&P completed from chart review, patient was found to have witnessed GTC seizures at the back of a van that she was riding in, and brought her to the emergency room, complaining of pain right hip. Imaging studies showed right hip intertrochanteric fracture, orthopedic surgeon Dr. Watkins was consulted for possible surgical intervention. Per orthopedic surgeon Dr. Watkins, cardiac and GI clearance clearance will be required prior to surgery as patient is high risk for surgery due to comorbidities. 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 Cardiology consulted for preop clearance prior to surgery. #Preop cardiac assessment Revised cardiac index for preop risk - RCRI score is 0, 3.9% risk of major cardiac event. RICCO score 0.3% risk of major cardiac event IntraOp operatively or immediately postop. Given patient has prior bedbound status, functional capacity is likely <4 METS. poor functional capacity, but orthopedic surgery generally considered low risk. Prior echocardiogram in July was not an adequate study, EF was 55 to 60%, aortic sclerosis. EKG shows sinus rhythm and Rt. bundle-branch block . Eliquis 2.5mg BID noted in home medication list Per orthopedic surgeon, no plans for immediate or emergency surgery, will wait for GI recommendations ? Currently on DVT prophylaxis with subcutaneous heparin ? Low risk for surgery, cleared for orthopedic surgery from cardiology standpoint #Peripheral arterial disease Lower extremity duplex scan was done which was reported as consistent with obstructive arterial disease, LUL 1.9 Radiology recommended getting CTA with abdominal aorta iliofemoral runoff . but 1.9 LUL, which is normal, duplex scan shows triphasic flow upto to dorsalis pedis a. pt has no ulcers or discolorations suggestive of arterial occlusion. per cardiology no further interventions or investigations required #History of hypertension ? Home medications include Cardizem 180 ER daily and metoprolol succinate 25 mg, and losartan 100 mg daily #History of developmental delay #History of seizures #Cerebral palsy ?Management per primary team Patient case discussed with attending physician Dr. Conor Figueredo, pgy2
--- NOTE | 2024-08-31 20:33 | PD.ORTHCONPN ---
Subjective Subjective Brief History: Patient was brought to the emergency room after seizure being observed by skilled nursing. When admitted she was noted to have pain in her right hip girdle. I was contacted to evaluate her peritrochanteric right hip fracture Narrative: Pain right hip Exam Vital Signs Temp Pulse Resp BP Pulse Ox O2 Del Method O2 Flow Rate 97.1 F 91 17 152/81 H 98 Nasal Cannula 1 08/31/24 20:00 08/31/24 20:00 08/31/24 20:00 08/31/24 20:00 08/31/24 20:00 08/31/24 20:00 08/31/24 20:00 Blood pressure 152/81 Narrative Exam Patient is asleep when I entered the room. I awaken her. She is watching a television program. She is able to follow simple commands. When I ask her to move upper extremity she does both when I have her move ankles and feet she is able to do both. Feet are much more warm at the present time. Cardiology evaluated her duplex scan and felt that it was within normal limits. Objective - Ortho Labs 08/31/24 04:52 08/31/24 04:52 Labs: Laboratory Results - last 24 hr 08/31/24 04:52 WBC 7.4 RBC 3.09 L Hgb 9.5 L Hct 28.0 L MCV 91 MCH 30.7 MCHC 33.9 RDW Std Deviation 42.7 Plt Count 256 D Neut % (Auto) 62 Lymph % (Auto) 18 [place] % (Auto) 12 Eos % (Auto) 7 Baso % (Auto) 0 Neut # (Auto) 4.6 Lymph # (Auto) 1.4 [place] # (Auto) 0.9 H Eos # (Auto) 0.5 Baso # (Auto) 0.0 Immature Gran # (Auto) 0.03 H Absolute Nucleated RBC 0.00 Immature Gran % 0 Nucleated RBC % 0 Sodium 134 L Potassium 3.4 Chloride 100 Carbon Dioxide 24.8 Anion Gap 9 BUN 8 L Creatinine 0.3 L Estim Creat Clear Calc 180.4 eGFR > 60 BUN/Creatinine Ratio 27 H Glucose 106 Calculated Osmolality 266 L Calcium 8.1 L Corrected Calcium 8.7 Total Bilirubin 0.5 AST 13 ALT 13 Alkaline Phosphatase 84 Total Protein 5.4 L Albumin 3.2 L Globulin 2.2 L Albumin/Globulin Ratio 1.5 Hemoglobin 9.5, potassium 3.4 Assessment & Plan Assessment Additional comments: Patient presently is getting cystic mass in head of pancreas worked up. She has been at bedrest. She is a nonambulator. History of seizure disorder. Cardiology feels that she is a candidate for surgery. After surgery if done she will be a nonambulator. I believe the risk is too high for this very nice lady. She was seen by Dr. Louis and he expressed significant reservations and said he would not operate. Will see what the biopsy shows. Present time I would recommend treating her at bedrest treating her supine and then moving her to left lateral decubitus position with pillows between her knees for heel protectors make sure she is adequately medicated for pain. Dr. Menjivar ration saw her and recommended some increase in her NT seizure meds Plan At present time recommend no surgery. Would like to get Dr Sheffield opinion also. I will see if she can be seen by Dr. cabrera. Documentation for date of: 08/31/24
[2024-08-31] MEDS: DILTIAZEM CD 180 MG CAPCR PO (21:13)
[2024-08-31] MEDS: HYDROcodone/APAP 5/325 TABLET 1 TAB PO (21:20)
--- NOTE | 2024-08-31 22:39 | PD.IMPROG ---
Documentation for date of: 08/31/24 Subjective Subjective Interval history: Patient scheduled for ultrasound-guided biopsy of the pancreatic mass Exam Vital Signs Temp Pulse Resp BP Pulse Ox O2 Del Method O2 Flow Rate 97.1 F 91 17 152/81 H 98 Nasal Cannula 1 08/31/24 20:00 08/31/24 21:14 08/31/24 20:00 08/31/24 21:14 08/31/24 20:00 08/31/24 20:00 08/31/24 20:00 Objective Labs 08/31/24 04:52 08/31/24 04:52 Labs: Laboratory Results - last 24 hr 08/31/24 04:52 WBC 7.4 RBC 3.09 L Hgb 9.5 L Hct 28.0 L MCV 91 MCH 30.7 MCHC 33.9 RDW Std Deviation 42.7 Plt Count 256 D Neut % (Auto) 62 Lymph % (Auto) 18 [place] % (Auto) 12 Eos % (Auto) 7 Baso % (Auto) 0 Neut # (Auto) 4.6 Lymph # (Auto) 1.4 [place] # (Auto) 0.9 H Eos # (Auto) 0.5 Baso # (Auto) 0.0 Immature Gran # (Auto) 0.03 H Absolute Nucleated RBC 0.00 Immature Gran % 0 Nucleated RBC % 0 Sodium 134 L Potassium 3.4 Chloride 100 Carbon Dioxide 24.8 Anion Gap 9 BUN 8 L Creatinine 0.3 L Estim Creat Clear Calc 180.4 eGFR > 60 BUN/Creatinine Ratio 27 H Glucose 106 Calculated Osmolality 266 L Calcium 8.1 L Corrected Calcium 8.7 Total Bilirubin 0.5 AST 13 ALT 13 Alkaline Phosphatase 84 Total Protein 5.4 L Albumin 3.2 L Globulin 2.2 L Albumin/Globulin Ratio 1.5 Impressions Impression: Pancreatic mass Ultrasound-guided biopsy of the pancreatic mass CA 19?9 level pending Assessment & Plan A&P Narrative # Ultrasound-guided pancreatic head mass CA 19?9 level Ultrasound-guided fine-needle biopsy by IR scheduled for Saturday or Saturday Will follow the patient Other medical problems include # Right hip fracture # 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
[2024-09-01] VITALS (9 sets, daily range): BP systolic 122–172; BP diastolic 66–89; PULSE 72–96; RESP 16–18; TEMP 36.2–36.7; O2SAT 93–98
[2024-09-01 06:07] LABS: Basophils % (Auto) 1 % (0-2.5); Eosinophils # (Auto) 0.4 Thou/mm3 (0.0-0.5); Eosinophils % (Auto) 7 % (0-10); Hematocrit 27.4 % (36.0-46.0); Hemoglobin 9.6 g/dL (12.0-16.0); Immature Granulocytes % (Auto) 1 % (0-0); Immature Granulocytes Auto 0.04 Thou/mm3 (0.00-0.00); Lymphocytes # (Auto) 1.4 Thou/mm3 (1.0-4.8); Lymphocytes % (Auto) 25 % (10-50); Mean Corpuscular Hemoglobin 31.6 pg (25.0-35.0); Mean Corpuscular Volume 90 fL (80-100); Monocytes # (Auto) 0.9 Thou/mm3 (0.0-0.8); Monocytes % (Auto) 15 % (0-12); Neutrophils # (Auto) 2.9 Thou/mm3 (1.8-7.7); Neutrophils % (Auto) 52 % (37-80); Nucleated Red Blood Cell % 0 /100 WBC (0); Platelet Count 245 Thou/mm3 (140-440); RDW Standard Deviation 42.1 fL (36.4-46.3); Red Blood Count 3.04 Miln/mm3 (4.00-5.20); White Blood Count 5.6 Thou/mm3 (3.6-11.0)
[2024-09-01 06:35] LABS: Alanine Aminotransferase 12 U/L (10-49); Albumin, Serum 3.1 gm/dL (3.4-4.8); Albumin/Globulin Ratio 1.5 (1.2-2.2); Alkaline Phosphatase 80 U/L (46-116); Anion Gap 8 (7-16); Aspartate Amino Transferase 16 U/L (0-34); BUN/Creatinine Ratio 23 Ratio (12-20); Bilirubin,Total 0.5 mg/dL (0.3-1.2); Blood Urea Nitrogen 7 mg/dL (9-23); Calcium 8.1 mg/dL (8.3-10.6); Calcium (Corrected) 8.8 mg/dL (8.5-10.1); Carbon Dioxide 25.2 mMol/L (20.0-31.0); Chloride 102 mMol/L (98-107); Creatinine (Component) 0.3 mg/dL (0.6-1.3); Estimated Creatinine Clearance 180.4 mL/min (>60); Globulin 2.1 gm/dL (2.3-3.5); Glucose 96 mg/dL (74-106); Osmolality,Calculated 268 (275-295); Potassium 3.5 mMol/L (3.4-5.1); Sodium 135 mMol/L (136-145); Total Protein 5.2 gm/dL (5.7-8.2); eGFR > 60 See Note
[2024-09-01] MEDS: levETIRAcetam 250 MG TABLET 1500 MG PO ×2 (09:53→21:30)
[2024-09-01] MEDS: carBAMazepine 100 MG CHEW 300 MG PO ×2 (09:54→21:30)
[2024-09-01] MEDS: LOSARTAN POTASSIUM 25 MG TABLET 100 MG PO (09:56)
[2024-09-01] MEDS: TAMSULOSIN HCL 0.4 MG CAPSULE PO (09:56)
[2024-09-01] MEDS: SENNA TABLET 1 TAB PO (09:56)
[2024-09-01] MEDS: PANTOPRAZOLE 40 MG TABLET PO (09:56)
--- NOTE | 2024-09-01 13:59 | ESPR_ITS ---
<Statement entered by Berhane Perdomo MD - 09/02/24 12:40> I reviewed all the findings with the resident physician PGY 3 patient appears to clinically stable not have any cardiac symptoms still low risk for surgery will sign off the case unless has any further cardiac issues Documentation for date of: 09/01/24 Subjective Subjective Interval history: Overnight events, lab/imaging results, and notes reviewed. Patient examined bedside, resting well without complaints. Has been cleared for surgery from cardiology standpoint, orthopedic team waiting for GI clearance with IR guided pancreatic mass biopsy. Cardiology team will sign off, please contact our team for any further questions or concerns. Exam Vital Signs Temp Pulse Resp BP Pulse Ox O2 Del Method O2 Flow Rate 97.5 F 78 16 164/74 H 98 Room Air 1 09/01/24 08:00 09/01/24 09:56 09/01/24 08:00 09/01/24 09:56 09/01/24 08:00 09/01/24 08:00 09/01/24 04:00 Narrative Exam General: AOx2, in no acute distress HEENT: Atraumatic/normocephalic, JSOE CRUZ Heart: RRR, S1 and S2 without clicks or murmurs Lungs: Clear on auscultation bilaterally, no difficulty breathing Abdomen: Soft, nontender. Bowel sounds present on all quadrants Skin: Intact, no cyanosis noted Vascular: Peripheral pulses palpable Neuro: No focal neurological deficits noted on appearance Objective Labs 09/01/24 04:42 09/01/24 04:42 Labs: Laboratory Results - last 24 hr 09/01/24 04:42 WBC 5.6 RBC 3.04 L Hgb 9.6 L Hct 27.4 L MCV 90 MCH 31.6 MCHC 35.0 RDW Std Deviation 42.1 Plt Count 245 Neut % (Auto) 52 Lymph % (Auto) 25 [place] % (Auto) 15 H Eos % (Auto) 7 Baso % (Auto) 1 Neut # (Auto) 2.9 Lymph # (Auto) 1.4 [place] # (Auto) 0.9 H Eos # (Auto) 0.4 Baso # (Auto) 0.0 Immature Gran # (Auto) 0.04 H Absolute Nucleated RBC 0.00 Immature Gran % 1 H Nucleated RBC % 0 Sodium 135 L Potassium 3.5 Chloride 102 Carbon Dioxide 25.2 Anion Gap 8 BUN 7 L Creatinine 0.3 L Estim Creat Clear Calc 180.4 eGFR > 60 BUN/Creatinine Ratio 23 H Glucose 96 Calculated Osmolality 268 L Calcium 8.1 L Corrected Calcium 8.8 Total Bilirubin 0.5 AST 16 ALT 12 Alkaline Phosphatase 80 Total Protein 5.2 L Albumin 3.1 L Globulin 2.1 L Albumin/Globulin Ratio 1.5 Quality Measures Quality Measures none Advance care planning discussed with:: patient Assessment & Plan Assessment Current Active Medications: Generic Name Dose Route Start Last Admin Trade Name Freq PRN Reason Stop Dose Admin Acetaminophen 650 mg 08/27/24 23:24 Acetaminophen 325 Mg Tablet PO 09/26/24 23:23 Q6H PRN Fever >100 or pain 1-3 Hydrocodone Bitart/Acetaminophen 1 tab 08/27/24 23:30 08/31/24 21:20 Hydrocodone/Apap 5/325 Tablet PO 09/01/24 23:29 1 tab Q4HR PRN Administration PAIN SCALE 4-6 (Moderate Carbamazepine 300 mg 08/28/24 21:00 09/01/24 09:54 Carbamazepine 100 Mg Chew PO 09/27/24 20:59 300 mg BID BHARAT Administration Diltiazem HCl 180 mg 08/28/24 21:00 08/31/24 21:13 Diltiazem Cd 180 Mg Capcr PO 09/27/24 20:59 180 mg HS BHARAT Administration Hydralazine HCl 25 mg 08/30/24 14:00 09/01/24 05:34 Hydralazine Hcl 25 Mg Tablet PO 09/29/24 13:59 Not Given TID BHARAT Levetiracetam 1,500 mg 08/27/24 23:45 09/01/24 09:53 Levetiracetam 250 Mg Tablet PO 09/26/24 23:44 1,500 mg BID BHARAT Administration Lorazepam 2 mg 08/28/24 15:28 Lorazepam 2 Mg/Ml Vial IVP 09/02/24 15:27 Q30M PRN SEIZURES Losartan Potassium 100 mg 08/30/24 11:15 09/01/24 09:56 Losartan Potassium 25 Mg Tablet PO 09/29/24 11:14 100 mg QDAY BHARAT Administration Ondansetron HCl 4 mg 08/27/24 23:24 Ondansetron Inj 2 Mg/Ml Inj 2 Ml IV 09/26/24 23:23 Q6H PRN NAUSEA OR VOMITING Protocol Pantoprazole Sodium 40 mg 08/30/24 09:00 09/01/24 09:56 Pantoprazole 40 Mg Tablet PO 09/27/24 08:59 40 mg QDAY BHARAT Administration Sennosides 1 tab 08/29/24 09:00 09/01/24 09:56 Senna Tablet PO 09/28/24 08:59 1 tab QDAY BHARAT Administration Protocol Tamsulosin HCl 0.4 mg 08/28/24 09:00 09/01/24 09:56 Tamsulosin Hcl 0.4 Mg Capsule PO 09/27/24 08:59 0.4 mg QDAY BHARAT Administration Plan Patient is a 69-year-old female, past medical history of developmental delay, cerebral palsy, history of seizures, patient is oriented to self and person but is only able to provide limited history, though she denies having a fall, though she has bruising on her nose and forehead, does not volunteer any information about how she hurt her hip. So the H&P completed from chart review, patient was found to have witnessed GTC seizures at the back of a van that she was riding in, and brought her to the emergency room, complaining of pain right hip. Imaging studies showed right hip intertrochanteric fracture, orthopedic surgeon Dr. Watkins was consulted for possible surgical intervention. Per orthopedic surgeon Dr. Watkins, cardiac and GI clearance clearance will be required prior to surgery as patient is high risk for surgery due to comorbidities. 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 Cardiology consulted for preop clearance prior to surgery. #Preop cardiac assessment Revised cardiac index for preop risk - RCRI score is 0, 3.9% risk of major cardiac event. RICCO score 0.3% risk of major cardiac event IntraOp operatively or immediately postop. Given patient has prior bedbound status, functional capacity is likely <4 METS. poor functional capacity, but orthopedic surgery generally considered low risk. Prior echocardiogram in July was not an adequate study, EF was 55 to 60%, aortic sclerosis. EKG shows sinus rhythm and Rt. bundle-branch block . Eliquis 2.5mg BID noted in home medication list Per orthopedic surgeon, no plans for immediate or emergency surgery, will wait for GI recommendations ? Currently on DVT prophylaxis with subcutaneous heparin ? Low risk for surgery, cleared for orthopedic surgery from cardiology standpoint ? Cardiology team will sign off, please contact our team for any further questions or ocncerns. #Peripheral arterial disease Lower extremity duplex scan was done which was reported as consistent with obstructive arterial disease, LUL 1.9 Radiology recommended consideration of CTA with abdominal aorta iliofemoral runoff. Duplex scan shows triphasic flow upto to dorsalis pedis artery. Pt has no ulcers or discolorations suggestive of arterial occlusion. ? No further interventions at this time from cardiology standpoint, remainder of management per primary team. #History of hypertension ? Home medications per chart review include Cardizem 180 ER daily, hydralazine 25 mg TID, metoprolol 50mg qday, and losartan 100 mg qday ? Resume home medications as clinically tolerated #History of developmental delay #History of seizures #Cerebral palsy ?Management per primary team Patient case discussed with attending physician Dr. Conor Anderson, DO PGY-3
--- NOTE | 2024-09-01 14:16 | ESPR_ITS ---
<Statement entered by Louise James MD - 09/02/24 08:00> Patient was seen and examined by me personally. I have directly supervised and reviewed documentation by the team resident and agree with its findings with any exceptions or additional findings as below. Plan of care was discussed with the attending, Dr. Burns. Patient seen at bedside without any complaints. Pending discussion between Dr. Mancia and Dr. Arango to discuss the plan regarding surgery. Meanwhile patient is planned for IR guided pancreatic mass biopsy. Louise James, PGY-2 Documentation for date of: 09/01/24 Subjective Subjective Interval history: 09/01/2024: No acute overnight events to report. Patient seen and examined in hospital bed remains at current baseline with no concerning symptoms noted. Dr Mancia is requesting a consultation of Dr. Sheffield regarding potential surgery for this patient, although he notes that he personally does not think surgery is required at this time. Patient will complete IR guided biopsy of the cystic pancreatic mass. Will continue to monitor the patient and manage pain effectively. Exam Vital Signs Temp Pulse Resp BP Pulse Ox O2 Del Method O2 Flow Rate 97.5 F 78 16 164/74 H 98 Room Air 1 09/01/24 08:00 09/01/24 09:56 09/01/24 08:00 09/01/24 09:56 09/01/24 08:00 09/01/24 08:00 09/01/24 04:00 Narrative Exam Physical Exam: General: Awake, answers some questions with 1-2 word answers, appears stated age with developmental delay CVS: RRR, S1 and S2 present, no murmurs, rubs or gallops . RESP: CTAB, no SOB, no rales, rhonchi or wheezing. No respiratory Distress GI: Normal BS, Nontender/Nondistended. MSK: Limited motion on the right Hip due to pain Skin: Warm to touch, Dry. No rashes or lesions. No hematomas Neuro: needlemaker II-XII grossly intact. Sensation grossly intact. Psych: (AAO) x1 to person Objective Labs 09/01/24 04:42 09/01/24 04:42 Labs: Laboratory Results - last 24 hr 09/01/24 04:42 WBC 5.6 RBC 3.04 L Hgb 9.6 L Hct 27.4 L MCV 90 MCH 31.6 MCHC 35.0 RDW Std Deviation 42.1 Plt Count 245 Neut % (Auto) 52 Lymph % (Auto) 25 [place] % (Auto) 15 H Eos % (Auto) 7 Baso % (Auto) 1 Neut # (Auto) 2.9 Lymph # (Auto) 1.4 [place] # (Auto) 0.9 H Eos # (Auto) 0.4 Baso # (Auto) 0.0 Immature Gran # (Auto) 0.04 H Absolute Nucleated RBC 0.00 Immature Gran % 1 H Nucleated RBC % 0 Sodium 135 L Potassium 3.5 Chloride 102 Carbon Dioxide 25.2 Anion Gap 8 BUN 7 L Creatinine 0.3 L Estim Creat Clear Calc 180.4 eGFR > 60 BUN/Creatinine Ratio 23 H Glucose 96 Calculated Osmolality 268 L Calcium 8.1 L Corrected Calcium 8.8 Total Bilirubin 0.5 AST 16 ALT 12 Alkaline Phosphatase 80 Total Protein 5.2 L Albumin 3.1 L Globulin 2.1 L Albumin/Globulin Ratio 1.5 Quality Measures Quality Measures none Advance care planning discussed with:: other (Dr. Arango) Assessment & Plan Assessment Current Active Medications: Generic Name Dose Route Start Last Admin Trade Name Freq PRN Reason Stop Dose Admin Acetaminophen 650 mg 08/27/24 23:24 Acetaminophen 325 Mg Tablet PO 09/26/24 23:23 Q6H PRN Fever >100 or pain 1-3 Hydrocodone Bitart/Acetaminophen 1 tab 08/27/24 23:30 08/31/24 21:20 Hydrocodone/Apap 5/325 Tablet PO 09/01/24 23:29 1 tab Q4HR PRN Administration PAIN SCALE 4-6 (Moderate Carbamazepine 300 mg 08/28/24 21:00 09/01/24 09:54 Carbamazepine 100 Mg Chew PO 09/27/24 20:59 300 mg BID BHARAT Administration Diltiazem HCl 180 mg 08/28/24 21:00 08/31/24 21:13 Diltiazem Cd 180 Mg Capcr PO 09/27/24 20:59 180 mg HS BHARAT Administration Hydralazine HCl 25 mg 08/30/24 14:00 09/01/24 05:34 Hydralazine Hcl 25 Mg Tablet PO 09/29/24 13:59 Not Given TID BHARAT Levetiracetam 1,500 mg 08/27/24 23:45 09/01/24 09:53 Levetiracetam 250 Mg Tablet PO 09/26/24 23:44 1,500 mg BID BHARAT Administration Lorazepam 2 mg 08/28/24 15:28 Lorazepam 2 Mg/Ml Vial IVP 09/02/24 15:27 Q30M PRN SEIZURES Losartan Potassium 100 mg 08/30/24 11:15 09/01/24 09:56 Losartan Potassium 25 Mg Tablet PO 09/29/24 11:14 100 mg QDAY BHARAT Administration Ondansetron HCl 4 mg 08/27/24 23:24 Ondansetron Inj 2 Mg/Ml Inj 2 Ml IV 09/26/24 23:23 Q6H PRN NAUSEA OR VOMITING Protocol Pantoprazole Sodium 40 mg 08/30/24 09:00 09/01/24 09:56 Pantoprazole 40 Mg Tablet PO 09/27/24 08:59 40 mg QDAY BHARAT Administration Sennosides 1 tab 08/29/24 09:00 09/01/24 09:56 Senna Tablet PO 09/28/24 08:59 1 tab QDAY BHARAT Administration Protocol Tamsulosin HCl 0.4 mg 08/28/24 09:00 09/01/24 09:56 Tamsulosin Hcl 0.4 Mg Capsule PO 09/27/24 08:59 0.4 mg QDAY BHARAT Administration Plan 69 y/o female with PMHx of cerebral palsy, developmental delay, hypertension, seizures, bedbound since 2020 (takes Eliquis DVT prophylaxis) and urinary retention who is admitted for acute intertrochanteric fracture of R hip. #Acute intertrochanteric fracture of the right hip #Hx of seizures Patient is bedbound and is presenting from a retirement is under conservatorship by Dr. Arango Apparently patient had a witnessed seizure lasting 30 seconds and presented to the ED Patient is on home Keppra 1500 mg twice daily and carbamazepine 300 mg twice daily Femur x-ray and CT of the hip confirm acute intertrochanteric fracture of the right hip Dr Mancia, orthopedic surgery, consulted in the ED Orthopedic surgery is requesting cardiac and GI clearance as the patient is high risk for surgery Echo done in July 2024 shows: Normal LV size and function. Estimated LVEF 55 to 60%. Diastolic function indeterminate. Normal RV size and function. Mild TR. Mild aortic valve sclerosis without stenosis Arterial duplex ultrasound ordered by orthopedic surgery confirms degree of PAD Plan: Ortho consult, appreciate recs Cardiology cleared the patient and is signing off Continue home seizure medications, neurology recommends IV Ativan for breakthrough seizures Pain controlled Seizure precautions Neuro checks q4h #Pancreatic mass MRI shows complex cystic mass in pancreatic head and body Ultrasound-guided biopsy was considered for last visit, however does not seem to be done CA 19-9 is elevated at 57 Per previous documentation, radiologist believes this patient does not have concerning lesion and recommended repeat imaging in 3 to 6 months Plan: IR guided biopsy of cystic mass ordered Dr Mancia consulted GI #History of hypertension #Hypotension #History of hyperlipidemia Blood pressure was measured to 70 systolic at home Veneer Sample [employer] Dr. Jennings Triglycerides 94, cholesterol 135, LDL 67, HDL 49 Plan: Continue with home Cardizem 180 CD #Bedbound #History of cerebral palsy #Developmental delay Patient is conserved, takes Eliquis she is mainly bedbound for DVT prophylaxis Dr. Arango is the patient's conservator Plan: Holding Eliquis 2.5 mg twice daily, will resume if surgery is off the table Hospital Management: Diet: Cardiac, dysphagia II Lines: PIV Bowel: Senna DVT prophylaxis: SCD GI prophylaxis: Protonix Dispo: Pending surgical clearance for trochanteric hip fracture repair versus pain management and conservative treatment based on what shared decision making between non-conservator Dr. Arango and medical team Code: Full Patient seen and examined with attending Dr. Burns and senior resident Dr. Erika Reynoso, PGY-1 Attending Provider Attestation/Addendum I reviewed labs, imaging, EKG, home medications and prior available records. Face to face evaluation was performed by me. I have personally examined the patient and discussed assessment and plan with the IM team. I reviewed the resident note and agree with the plan with exceptions as below. Right intertrochanteric hip fracture Seizure disorder Developmental delay/cerebral palsy Pancreatic mass Leukocytosis, unspecific Touched base with Dr. Arango for her decisions: He will touch base with orthopedic surgery regarding the surgical decision Management of pain as needed Consulted GI for pancreatic mass workup prior to OR: Recommended to biopsy by IR which is planned for 09/01 Consulted neurology in the setting of seizure episode. Seizure precautions. Resumed home antiepileptic medications. Ativan as needed for breakthrough seizures Consulted orthopedic surgery: Conservative management for now however Dr Mancia wants second opinion from Dr. Hylton Pending okay to DC from orthopedic surgery standpoint in case everyone agrees on no surgery Consulted cardiology: Okay to proceed to surgery if indicated. Ordered echocardiogram Resumed BP medications losartan, hydralazine, and Cardizem Trend WBC: Downtrending
[2024-09-01] MEDS: hydrALAZINE HCL 25 MG TABLET PO ×2 (15:48→21:35)
--- NOTE | 2024-09-01 18:32 | ESPR_ITS ---
Documentation for date of: 09/01/24 Subjective Subjective Interval history: Still waiting for the IR guided by ultrasound biopsy of the pancreatic mass Exam Vital Signs Temp Pulse Resp BP Pulse Ox O2 Del Method O2 Flow Rate 97.5 F 79 16 172/89 H 98 Room Air 1 09/01/24 08:00 09/01/24 15:48 09/01/24 08:00 09/01/24 15:48 09/01/24 08:00 09/01/24 08:00 09/01/24 04:00 Objective Labs 09/01/24 04:42 09/01/24 04:42 Labs: Laboratory Results - last 24 hr 09/01/24 04:42 WBC 5.6 RBC 3.04 L Hgb 9.6 L Hct 27.4 L MCV 90 MCH 31.6 MCHC 35.0 RDW Std Deviation 42.1 Plt Count 245 Neut % (Auto) 52 Lymph % (Auto) 25 [place] % (Auto) 15 H Eos % (Auto) 7 Baso % (Auto) 1 Neut # (Auto) 2.9 Lymph # (Auto) 1.4 [place] # (Auto) 0.9 H Eos # (Auto) 0.4 Baso # (Auto) 0.0 Immature Gran # (Auto) 0.04 H Absolute Nucleated RBC 0.00 Immature Gran % 1 H Nucleated RBC % 0 Sodium 135 L Potassium 3.5 Chloride 102 Carbon Dioxide 25.2 Anion Gap 8 BUN 7 L Creatinine 0.3 L Estim Creat Clear Calc 180.4 eGFR > 60 BUN/Creatinine Ratio 23 H Glucose 96 Calculated Osmolality 268 L Calcium 8.1 L Corrected Calcium 8.8 Total Bilirubin 0.5 AST 16 ALT 12 Alkaline Phosphatase 80 Total Protein 5.2 L Albumin 3.1 L Globulin 2.1 L Albumin/Globulin Ratio 1.5 Impressions Impression: Pancreatic mass Waiting for IR guided biopsy Assessment & Plan A&P Narrative # Ultrasound-guided pancreatic head mass CA 19?9 level Ultrasound-guided fine-needle biopsy by IR scheduled for Saturday or Saturday Will follow the patient Other medical problems include # Right hip fracture # 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
[2024-09-01] MEDS: DILTIAZEM CD 180 MG CAPCR PO (21:35)
[2024-09-01] MEDS: SODIUM CHLORIDE 0.9% 1000 ML 1,000 ML 75 ML IV (21:45)
--- NOTE | 2024-09-01 23:58 | PD.VPROG1 ---
Telemedicine visit statement This visit was conducted with the use of interactive audio and video telecommunications system that permits real time communication between the patient and the provider. Patient's verbal consent for virtual visit was obtained on 09/01/24 at 2358. Documentation for date of: 09/01/24 Subjective Subjective Interval history: Patient is in medsur today. No clinical seizures reported, she is refusing to eat any of her meals. She only drinks tea. Virtual exam Vital Signs Temp Pulse Resp BP Pulse Ox O2 Del Method O2 Flow Rate 97.1 F 96 18 159/66 H 98 Room Air 1 09/01/24 20:00 09/01/24 21:35 09/01/24 20:00 09/01/24 21:35 09/01/24 20:00 09/01/24 20:00 09/01/24 04:00 Objective Labs 09/02/24 05:17 09/02/24 05:17 Labs: Laboratory Results - last 24 hr 09/01/24 04:42 WBC 5.6 RBC 3.04 L Hgb 9.6 L Hct 27.4 L MCV 90 MCH 31.6 MCHC 35.0 RDW Std Deviation 42.1 Plt Count 245 Neut % (Auto) 52 Lymph % (Auto) 25 [place] % (Auto) 15 H Eos % (Auto) 7 Baso % (Auto) 1 Neut # (Auto) 2.9 Lymph # (Auto) 1.4 [place] # (Auto) 0.9 H Eos # (Auto) 0.4 Baso # (Auto) 0.0 Immature Gran # (Auto) 0.04 H Absolute Nucleated RBC 0.00 Immature Gran % 1 H Nucleated RBC % 0 Sodium 135 L Potassium 3.5 Chloride 102 Carbon Dioxide 25.2 Anion Gap 8 BUN 7 L Creatinine 0.3 L Estim Creat Clear Calc 180.4 eGFR > 60 BUN/Creatinine Ratio 23 H Glucose 96 Calculated Osmolality 268 L Calcium 8.1 L Corrected Calcium 8.8 Total Bilirubin 0.5 AST 16 ALT 12 Alkaline Phosphatase 80 Total Protein 5.2 L Albumin 3.1 L Globulin 2.1 L Albumin/Globulin Ratio 1.5 Assessment & Plan Assessment Patient is a 69 y/o female with PMHx of cerebral palsy, developmental delay, hypertension, seizures, bedbound since 2020 (takes Eliquis DVT prophylaxis) and urinary retention who is admitted for acute intertrochanteric fracture of R hip. #History of cerebral palsy #History of seizures Continue with Keppra 1500 mg twice daily FU with carbamazepine level #Acute intertrochanteric fracture of the right hip #Hx of Urinary retention #Pancreatic mass #History of hypertension #Hypotension #History of hyperlipidemia #Bedbound #History of cerebral palsy #Developmental delay Continue management per primary team
[2024-09-02] VITALS (11 sets, daily range): BP systolic 97–169; BP diastolic 53–88; PULSE 76–101; RESP 18–20; TEMP 36.1–37.1; O2SAT 96–99
[2024-09-02] MEDS: hydrALAZINE HCL 25 MG TABLET PO ×3 (05:08→22:11)
[2024-09-02 06:02] LABS: Basophils % (Auto) 1 % (0-2.5); Eosinophils # (Auto) 0.3 Thou/mm3 (0.0-0.5); Eosinophils % (Auto) 5 % (0-10); Hematocrit 30.7 % (36.0-46.0); Hemoglobin 10.5 g/dL (12.0-16.0); Immature Granulocytes % (Auto) 1 % (0-0); Immature Granulocytes Auto 0.04 Thou/mm3 (0.00-0.00); Lymphocytes # (Auto) 1.2 Thou/mm3 (1.0-4.8); Lymphocytes % (Auto) 21 % (10-50); Mean Corpuscular HGB Conc 34.2 g/dl (31.0-37.0); Mean Corpuscular Hemoglobin 31.6 pg (25.0-35.0); Mean Corpuscular Volume 93 fL (80-100); Monocytes # (Auto) 0.8 Thou/mm3 (0.0-0.8); Monocytes % (Auto) 13 % (0-12); Neutrophils # (Auto) 3.4 Thou/mm3 (1.8-7.7); Neutrophils % (Auto) 59 % (37-80); Nucleated Red Blood Cell % 0 /100 WBC (0); Platelet Count 296 Thou/mm3 (140-440); RDW Standard Deviation 42.9 fL (36.4-46.3); Red Blood Count 3.32 Miln/mm3 (4.00-5.20); White Blood Count 5.7 Thou/mm3 (3.6-11.0)
[2024-09-02 06:28] LABS: Alanine Aminotransferase 31 U/L (10-49); Albumin, Serum 3.5 gm/dL (3.4-4.8); Albumin/Globulin Ratio 1.6 (1.2-2.2); Alkaline Phosphatase 92 U/L (46-116); Anion Gap 12 (7-16); Aspartate Amino Transferase 32 U/L (0-34); BUN/Creatinine Ratio 23 Ratio (12-20); Bilirubin,Total 0.5 mg/dL (0.3-1.2); Blood Urea Nitrogen 7 mg/dL (9-23); Calcium 8.5 mg/dL (8.3-10.6); Calcium (Corrected) 8.9 mg/dL (8.5-10.1); Carbon Dioxide 23.2 mMol/L (20.0-31.0); Chloride 101 mMol/L (98-107); Creatinine (Component) 0.3 mg/dL (0.6-1.3); Estimated Creatinine Clearance 180.4 mL/min (>60); Globulin 2.2 gm/dL (2.3-3.5); Glucose 94 mg/dL (74-106); Osmolality,Calculated 269 (275-295); Potassium 3.4 mMol/L (3.4-5.1); Sodium 136 mMol/L (136-145); Total Protein 5.7 gm/dL (5.7-8.2); eGFR > 60 See Note
[2024-09-02] MEDS: levETIRAcetam 250 MG TABLET 1500 MG PO ×2 (09:02→22:11)
[2024-09-02] MEDS: LOSARTAN POTASSIUM 25 MG TABLET 100 MG PO (09:04)
[2024-09-02] MEDS: carBAMazepine 100 MG CHEW 300 MG PO ×2 (09:05→22:11)
[2024-09-02] MEDS: TAMSULOSIN HCL 0.4 MG CAPSULE PO (09:05)
[2024-09-02] MEDS: SENNA TABLET 1 TAB PO (09:05)
[2024-09-02] MEDS: PANTOPRAZOLE 40 MG TABLET PO (09:05)
[2024-09-02] MEDS: SODIUM CHLORIDE 0.9% 1000 ML 1,000 ML 75 ML IV (11:15)
--- NOTE | 2024-09-02 12:06 | ESPR_ITS ---
<Statement entered by Louise James MD - 09/03/24 05:38> Patient was seen and examined by me personally. I have directly supervised and reviewed documentation by the team resident and agree with its findings with any exceptions or additional findings as below. Plan of care was discussed with the attending, Dr. Lebron. Patient this morning was asleep, when awakened did not have complaints. Later in the day patient had pain, therefore Drasco 5-325 was given and kept as pain regimen. Dr. Waldron was contacted regarding IR guided pancreatic mass biopsy and he felt that biopsy was not indicated due to similar size of this cystic mass dating back [address] Mancia was reached who agreed with non- surgical management of the right hip fracture. Will plan to discharge tomorrow back to assisted with pain control and recommendations for conservative management. Patient has additionally not had any seizure while in the hospital, will continue Keppra 1500 mg BID and carbamazepine 300 mg BID for anti-epileptic regimen. Louise James, PGY-2 Documentation for date of: 09/02/24 Subjective Subjective Interval history: 09/02/2024: No acute overnight events to report. Patient seen and examined in hospital bed remains at current baseline. IR team is rejecting doing biopsy of the pancreas as result we will start the patient on dysphagia II diet. Awaiting recommendations by Dr. Mancia at this time. Will continue to monitor the patient and expect discharge within the next 24 to 48 hours. Exam Vital Signs Temp Pulse Resp BP Pulse Ox O2 Del Method O2 Flow Rate 97.1 F 76 18 162/74 H 97 Room Air 1 09/02/24 11:59 09/02/24 11:59 09/02/24 11:59 09/02/24 11:59 09/02/24 11:59 09/02/24 11:59 09/01/24 04:00 Narrative Exam Physical Exam: General: Awake, answers some questions with 1-2 word answers, appears stated age with developmental delay CVS: RRR, S1 and S2 present, no murmurs, rubs or gallops . RESP: CTAB, no SOB, no rales, rhonchi or wheezing. No respiratory Distress GI: Normal BS, Nontender/Nondistended. MSK: Limited motion on the right Hip due to pain Skin: Warm to touch, Dry. No rashes or lesions. No hematomas Neuro: reporting analyst II-XII grossly intact. Sensation grossly intact. Psych: (AAO) x1 to person Objective Labs 09/03/24 05:15 09/03/24 05:15 Labs: Laboratory Results - last 24 hr 09/02/24 05:17 WBC 5.7 RBC 3.32 L Hgb 10.5 L Hct 30.7 L MCV 93 MCH 31.6 MCHC 34.2 RDW Std Deviation 42.9 Plt Count 296 D Neut % (Auto) 59 Lymph % (Auto) 21 [place] % (Auto) 13 H Eos % (Auto) 5 Baso % (Auto) 1 Neut # (Auto) 3.4 Lymph # (Auto) 1.2 [place] # (Auto) 0.8 Eos # (Auto) 0.3 Baso # (Auto) 0.0 Immature Gran # (Auto) 0.04 H Absolute Nucleated RBC 0.00 Immature Gran % 1 H Nucleated RBC % 0 Sodium 136 Potassium 3.4 Chloride 101 Carbon Dioxide 23.2 Anion Gap 12 BUN 7 L Creatinine 0.3 L Estim Creat Clear Calc 180.4 eGFR > 60 BUN/Creatinine Ratio 23 H Glucose 94 Calculated Osmolality 269 L Calcium 8.5 Corrected Calcium 8.9 Total Bilirubin 0.5 AST 32 ALT 31 Alkaline Phosphatase 92 Total Protein 5.7 Albumin 3.5 Globulin 2.2 L Albumin/Globulin Ratio 1.6 Quality Measures Quality Measures none Advance care planning discussed with:: other (Dr. Arango) Assessment & Plan Assessment Current Active Medications: Generic Name Dose Route Start Last Admin Trade Name Freq PRN Reason Stop Dose Admin Acetaminophen 650 mg 08/27/24 23:24 Acetaminophen 325 Mg Tablet PO 09/26/24 23:23 Q6H PRN Fever >100 or pain 1-3 Carbamazepine 300 mg 08/28/24 21:00 09/02/24 09:05 Carbamazepine 100 Mg Chew PO 09/27/24 20:59 300 mg BID BHARAT Administration Diltiazem HCl 180 mg 08/28/24 21:00 09/01/24 21:35 Diltiazem Cd 180 Mg Capcr PO 09/27/24 20:59 180 mg HS BHARAT Administration Hydralazine HCl 25 mg 08/30/24 14:00 09/02/24 05:08 Hydralazine Hcl 25 Mg Tablet PO 09/29/24 13:59 25 mg TID BHARAT Administration Sodium Chloride 1,000 mls @ 75 mls/hr 09/01/24 20:06 09/02/24 11:15 Ns IV 10/01/24 20:05 75 mls/hr .[id number] BHARAT Administration Levetiracetam 1,500 mg 08/27/24 23:45 09/02/24 09:02 Levetiracetam 250 Mg Tablet PO 09/26/24 23:44 1,500 mg BID BHARAT Administration Lorazepam 2 mg 08/28/24 15:28 Lorazepam 2 Mg/Ml Vial IVP 09/02/24 15:27 Q30M PRN SEIZURES Losartan Potassium 100 mg 08/30/24 11:15 09/02/24 09:04 Losartan Potassium 25 Mg Tablet PO 09/29/24 11:14 100 mg QDAY BHARAT Administration Ondansetron HCl 4 mg 08/27/24 23:24 Ondansetron Inj 2 Mg/Ml Inj 2 Ml IV 09/26/24 23:23 Q6H PRN NAUSEA OR VOMITING Protocol Pantoprazole Sodium 40 mg 08/30/24 09:00 09/02/24 09:05 Pantoprazole 40 Mg Tablet PO 09/27/24 08:59 40 mg QDAY BHARAT Administration Sennosides 1 tab 08/29/24 09:00 09/02/24 09:05 Senna Tablet PO 09/28/24 08:59 1 tab QDAY BHARAT Administration Protocol Tamsulosin HCl 0.4 mg 08/28/24 09:00 09/02/24 09:05 Tamsulosin Hcl 0.4 Mg Capsule PO 09/27/24 08:59 0.4 mg QDAY BHARAT Administration Plan 69 y/o female with PMHx of cerebral palsy, developmental delay, hypertension, seizures, bedbound since 2020 (takes Eliquis DVT prophylaxis) and urinary retention who is admitted for acute intertrochanteric fracture of R hip. #Acute intertrochanteric fracture of the right hip #Hx of seizures Patient is bedbound and is presenting from a fpc is under conservatorship by Dr. Arango Apparently patient had a witnessed seizure lasting 30 seconds and presented to the ED Patient is on home Keppra 1500 mg twice daily and carbamazepine 300 mg twice daily Femur x-ray and CT of the hip confirm acute intertrochanteric fracture of the right hip Dr Mancia, orthopedic surgery, consulted in the ED Orthopedic surgery is requesting cardiac and GI clearance as the patient is high risk for surgery Echo done in July 2024 shows: Normal LV size and function. Estimated LVEF 55 to 60%. Diastolic function indeterminate. Normal RV size and function. Mild TR. 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 Mancia regarding the next steps Dr Mancia consulted GI #History of hypertension #Hypotension #History of hyperlipidemia Blood pressure was measured to 70 systolic at home Brush Clearing Laborer Dr. Jennings Triglycerides 94, cholesterol 135, LDL 67, HDL 49 Plan: Continue with home Cardizem 180 CD #Bedbound #History of cerebral palsy #Developmental delay Patient is conserved, takes Eliquis she is mainly bedbound for DVT prophylaxis Dr. Arango is the patient's conservator Plan: Holding Eliquis 2.5 mg twice daily, will resume if surgery is off the table Hospital Management: Diet: Cardiac, dysphagia II Lines: PIV Bowel: Senna DVT prophylaxis: SCD GI prophylaxis: Protonix Dispo: Pending surgical clearance for trochanteric hip fracture repair versus pain management and conservative treatment based on what shared decision making between non-conservator Dr. Arango and medical team Code: Full Patient seen and examined with attending Dr. Lebron and senior resident Dr. Erika Reynoso, PGY-1 Attending Provider Attestation/Addendum Sheng, Indigo Lebron, , attest that I was physically present for the marie portions of the service and evaluated the patient with the resident and I reviewed and discussed the case with the resident and agree with the resident's findings and plans of care as documented above Patient seen and evaluated this AM. No acute events overnight. Patient has some pain with movement of her right hip that she refers to as her knee. Her right leg is externally rotated on exam. She is otherwise in no acute distress. Case discussed with ortho over the phone who also obtained a second opinion from ortho lockstitch front maker who agreed that patient should be treated conservatively. This was also agreed upon during the discussion between PGY1 and Dr. Arango, medical staff physician at [facility]. 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 Chief Nursing Executive was updated regarding plan of care, pending [place] lift and hospital bed. Anticipate DC within 24hrs.
--- NOTE | 2024-09-02 13:37 | PD.RESPRO ---
Documentation for date of: 09/02/24 Subjective Subjective Interval history: z Exam Vital Signs Temp Pulse Resp BP Pulse Ox O2 Del Method O2 Flow Rate 97.1 F 76 18 162/74 H 97 Room Air 1 09/02/24 11:59 09/02/24 11:59 09/02/24 11:59 09/02/24 11:59 09/02/24 11:59 09/02/24 11:59 09/01/24 04:00 Objective Labs 09/02/24 05:17 09/02/24 05:17 Labs: Laboratory Results - last 24 hr 09/02/24 05:17 WBC 5.7 RBC 3.32 L Hgb 10.5 L Hct 30.7 L MCV 93 MCH 31.6 MCHC 34.2 RDW Std Deviation 42.9 Plt Count 296 D Neut % (Auto) 59 Lymph % (Auto) 21 [place] % (Auto) 13 H Eos % (Auto) 5 Baso % (Auto) 1 Neut # (Auto) 3.4 Lymph # (Auto) 1.2 [place] # (Auto) 0.8 Eos # (Auto) 0.3 Baso # (Auto) 0.0 Immature Gran # (Auto) 0.04 H Absolute Nucleated RBC 0.00 Immature Gran % 1 H Nucleated RBC % 0 Sodium 136 Potassium 3.4 Chloride 101 Carbon Dioxide 23.2 Anion Gap 12 BUN 7 L Creatinine 0.3 L Estim Creat Clear Calc 180.4 eGFR > 60 BUN/Creatinine Ratio 23 H Glucose 94 Calculated Osmolality 269 L Calcium 8.5 Corrected Calcium 8.9 Total Bilirubin 0.5 AST 32 ALT 31 Alkaline Phosphatase 92 Total Protein 5.7 Albumin 3.5 Globulin 2.2 L Albumin/Globulin Ratio 1.6 Quality Measures Quality Measures none Assessment & Plan Assessment Current Active Medications: Generic Name Dose Route Start Last Admin Trade Name Freq PRN Reason Stop Dose Admin Acetaminophen 650 mg 08/27/24 23:24 Acetaminophen 325 Mg Tablet PO 09/26/24 23:23 Q6H PRN Fever >100 or pain 1-3 Carbamazepine 300 mg 08/28/24 21:00 09/02/24 09:05 Carbamazepine 100 Mg Chew PO 09/27/24 20:59 300 mg BID BHARAT Administration Diltiazem HCl 180 mg 08/28/24 21:00 09/01/24 21:35 Diltiazem Cd 180 Mg Capcr PO 09/27/24 20:59 180 mg HS BHARAT Administration Hydralazine HCl 25 mg 08/30/24 14:00 09/02/24 05:08 Hydralazine Hcl 25 Mg Tablet PO 09/29/24 13:59 25 mg TID BHARAT Administration Sodium Chloride 1,000 mls @ 75 mls/hr 09/01/24 20:06 09/02/24 11:15 Ns IV 10/01/24 20:05 75 mls/hr .[id number] BHARAT Administration Levetiracetam 1,500 mg 08/27/24 23:45 09/02/24 09:02 Levetiracetam 250 Mg Tablet PO 09/26/24 23:44 1,500 mg BID BHARAT Administration Lorazepam 2 mg 08/28/24 15:28 Lorazepam 2 Mg/Ml Vial IVP 09/02/24 15:27 Q30M PRN SEIZURES Losartan Potassium 100 mg 08/30/24 11:15 09/02/24 09:04 Losartan Potassium 25 Mg Tablet PO 09/29/24 11:14 100 mg QDAY BHARAT Administration Ondansetron HCl 4 mg 08/27/24 23:24 Ondansetron Inj 2 Mg/Ml Inj 2 Ml IV 09/26/24 23:23 Q6H PRN NAUSEA OR VOMITING Protocol Pantoprazole Sodium 40 mg 08/30/24 09:00 09/02/24 09:05 Pantoprazole 40 Mg Tablet PO 09/27/24 08:59 40 mg QDAY BHARAT Administration Sennosides 1 tab 08/29/24 09:00 09/02/24 09:05 Senna Tablet PO 09/28/24 08:59 1 tab QDAY BHARAT Administration Protocol Tamsulosin HCl 0.4 mg 08/28/24 09:00 09/02/24 09:05 Tamsulosin Hcl 0.4 Mg Capsule PO 09/27/24 08:59 0.4 mg QDAY BHARAT Administration
[2024-09-02] MEDS: HYDROcodone/APAP 5/325 TABLET 1 TAB PO (15:10)
--- NOTE | 2024-09-02 15:24 | PC.SS ---
Hospital Bed ? Patient?s diagnosis requires positioning of the head or upper body to be elevated more than 30 degrees. Also the diagnosis requires positioning in order to alleviate pain and if the patient requires frequent changes in the body positioning and/or has an immediate need for change in the body position. Pillows and wedges have been considered and ruled out. [facility] LIFT Patient requires transfer between the bed, chair, wheelchair and commode that requires the assistance of more than one person.? Without the use of the lift the patient would be confined or a dependent transfer. ?
--- NOTE | 2024-09-02 19:48 | PD.NEUROPROG ---
Documentation for date of: 09/02/24 Subjective Subjective Interval history: Patient was seen and MedSurg today at the bedside. No seizures reported after admission. She is refusing to eat most of the meals. Exam - Neurology Vital Signs Temp Pulse Resp BP Pulse Ox O2 Del Method O2 Flow Rate 97.0 F 101 H 18 97/53 L 98 Room Air 1 09/02/24 16:00 09/02/24 16:00 09/02/24 16:00 09/02/24 16:00 09/02/24 16:00 09/02/24 16:00 09/01/24 04:00 Narrative Exam General: AAOx2, developmentally delayed, resting comfortably in bed. Cardiovascular: Regular rate and rhythm, no murmurs, rubs, or gallops. Pulmonary: Chest clear to auscultation bilaterally. GI: Nontender to palpitation in lower abdomen, no guarding, active bowel sounds. Extremities: No edema noted lower extremities. Neuro: AAOx2, no focal motor or sensory deficits in the UE or LE bilat Objective Labs 09/02/24 05:17 09/02/24 05:17 Labs: Laboratory Results - last 24 hr 09/02/24 05:17 WBC 5.7 RBC 3.32 L Hgb 10.5 L Hct 30.7 L MCV 93 MCH 31.6 MCHC 34.2 RDW Std Deviation 42.9 Plt Count 296 D Neut % (Auto) 59 Lymph % (Auto) 21 [place] % (Auto) 13 H Eos % (Auto) 5 Baso % (Auto) 1 Neut # (Auto) 3.4 Lymph # (Auto) 1.2 [place] # (Auto) 0.8 Eos # (Auto) 0.3 Baso # (Auto) 0.0 Immature Gran # (Auto) 0.04 H Absolute Nucleated RBC 0.00 Immature Gran % 1 H Nucleated RBC % 0 Sodium 136 Potassium 3.4 Chloride 101 Carbon Dioxide 23.2 Anion Gap 12 BUN 7 L Creatinine 0.3 L Estim Creat Clear Calc 180.4 eGFR > 60 BUN/Creatinine Ratio 23 H Glucose 94 Calculated Osmolality 269 L Calcium 8.5 Corrected Calcium 8.9 Total Bilirubin 0.5 AST 32 ALT 31 Alkaline Phosphatase 92 Total Protein 5.7 Albumin 3.5 Globulin 2.2 L Albumin/Globulin Ratio 1.6 Assessment & Plan Additional Assessment & Plan Additional Plan: Patient is a 69 y/o female with PMHx of cerebral palsy, developmental delay, hypertension, seizures, bedbound since 2020 (takes Eliquis DVT prophylaxis) and urinary retention who is admitted for acute intertrochanteric fracture of R hip. #History of cerebral palsy #History of seizures: None reported since admission Continue with Keppra 1500 mg twice daily and carbamazepine 300 mg twice a day. Follow-up with the carbamazepine level as it becomes available. As needed benzo for breakthrough seizures #Acute intertrochanteric fracture of the right hip #Hx of Urinary retention #Pancreatic mass #History of hypertension #Hypotension #History of hyperlipidemia #Bedbound #History of cerebral palsy #Developmental delay Continue management per primary team
--- NOTE | 2024-09-02 21:10 | PD.IMPROG ---
Documentation for date of: 09/02/24 Subjective Subjective Interval history: Will speak to the radiology in the morning about the IR guided biopsy of the pancreatic mass Exam Vital Signs Temp Pulse Resp BP Pulse Ox O2 Del Method O2 Flow Rate 97.4 F 92 20 126/63 97 Room Air 1 09/02/24 20:00 09/02/24 20:00 09/02/24 20:00 09/02/24 20:00 09/02/24 20:00 09/02/24 20:00 09/01/24 04:00 Objective Labs 09/02/24 05:17 09/02/24 05:17 Labs: Laboratory Results - last 24 hr 09/02/24 05:17 WBC 5.7 RBC 3.32 L Hgb 10.5 L Hct 30.7 L MCV 93 MCH 31.6 MCHC 34.2 RDW Std Deviation 42.9 Plt Count 296 D Neut % (Auto) 59 Lymph % (Auto) 21 [place] % (Auto) 13 H Eos % (Auto) 5 Baso % (Auto) 1 Neut # (Auto) 3.4 Lymph # (Auto) 1.2 [place] # (Auto) 0.8 Eos # (Auto) 0.3 Baso # (Auto) 0.0 Immature Gran # (Auto) 0.04 H Absolute Nucleated RBC 0.00 Immature Gran % 1 H Nucleated RBC % 0 Sodium 136 Potassium 3.4 Chloride 101 Carbon Dioxide 23.2 Anion Gap 12 BUN 7 L Creatinine 0.3 L Estim Creat Clear Calc 180.4 eGFR > 60 BUN/Creatinine Ratio 23 H Glucose 94 Calculated Osmolality 269 L Calcium 8.5 Corrected Calcium 8.9 Total Bilirubin 0.5 AST 32 ALT 31 Alkaline Phosphatase 92 Total Protein 5.7 Albumin 3.5 Globulin 2.2 L Albumin/Globulin Ratio 1.6 Impressions Impression: Pancreatic mass the speak with the interventional radiologist tomorrow Assessment & Plan A&P Narrative # Ultrasound-guided pancreatic head mass CA 19?9 level Ultrasound-guided fine-needle biopsy by IR scheduled for Saturday or Saturday Will follow the patient Other medical problems include # Right hip fracture # 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
--- NOTE | 2024-09-02 21:56 | PD.ORTHCONPN ---
Subjective Subjective Brief History: Patient was brought to the emergency room after seizure being observed by [facility]. When admitted she was noted to have pain in her right hip girdle. I was contacted to evaluate her peritrochanteric right hip fracture Narrative: Patient asleep and easily aroused. Seemingly answers simple questions with understanding. Exam Vital Signs Temp Pulse Resp BP Pulse Ox O2 Del Method O2 Flow Rate 97.4 F 92 20 126/63 97 Room Air 1 09/02/24 20:00 09/02/24 20:00 09/02/24 20:00 09/02/24 20:00 09/02/24 20:00 09/02/24 20:00 09/01/24 04:00 Blood pressure 126/73 Narrative Exam Talk to the patient and ask her to open her eyes she said I do not want to. I asked her if she would move her upper extremities and she said no. She has had good range of motion of her upper extremities on previous visit. Examination of the lower extremity shows that her right and left foot are considerably warmer than they were on admission again she would not flex or extend her toes or ankles and has exhibited some periods of noncooperation well here at the hospital. Objective - Ortho Labs 09/02/24 05:17 09/02/24 05:17 Labs: Laboratory Results - last 24 hr 09/02/24 05:17 WBC 5.7 RBC 3.32 L Hgb 10.5 L Hct 30.7 L MCV 93 MCH 31.6 MCHC 34.2 RDW Std Deviation 42.9 Plt Count 296 D Neut % (Auto) 59 Lymph % (Auto) 21 [place] % (Auto) 13 H Eos % (Auto) 5 Baso % (Auto) 1 Neut # (Auto) 3.4 Lymph # (Auto) 1.2 [place] # (Auto) 0.8 Eos # (Auto) 0.3 Baso # (Auto) 0.0 Immature Gran # (Auto) 0.04 H Absolute Nucleated RBC 0.00 Immature Gran % 1 H Nucleated RBC % 0 Sodium 136 Potassium 3.4 Chloride 101 Carbon Dioxide 23.2 Anion Gap 12 BUN 7 L Creatinine 0.3 L Estim Creat Clear Calc 180.4 eGFR > 60 BUN/Creatinine Ratio 23 H Glucose 94 Calculated Osmolality 269 L Calcium 8.5 Corrected Calcium 8.9 Total Bilirubin 0.5 AST 32 ALT 31 Alkaline Phosphatase 92 Total Protein 5.7 Albumin 3.5 Globulin 2.2 L Albumin/Globulin Ratio 1.6 Hemoglobin 10.5 Assessment & Plan Assessment Additional comments: A candidate for surgery. I asked for a second opinion. Second opinion agreed not a candidate for surgery. Multiple medical problems including seizure disorder and inability to cooperate on a regular basis. Is a very big operation. The big item is that she is bedbound and a nonambulator. Generally speaking at 3 to 5 weeks fracture becomes very stable increase movement is permitted and I would anticipate at 4 to 5 weeks we can get her up in a chair. Plan DC when okay with hospital staff, Dr. Zavala, Dr. Austin pittman and. I will see her in 2 weeks at [facility] she leaves hospital Documentation for date of: 09/02/24
[2024-09-02] MEDS: DILTIAZEM CD 180 MG CAPCR PO (22:12)
[2024-09-03] VITALS (7 sets, daily range): BP systolic 111–164; BP diastolic 64–80; PULSE 73–83; RESP 16–20; TEMP 36.4–36.6; O2SAT 95–99
[2024-09-03] MEDS: SODIUM CHLORIDE 0.9% 1000 ML 1,000 ML 75 ML IV (01:15)
[2024-09-03] MEDS: HYDROcodone/APAP 5/325 TABLET 1 TAB PO (04:22)
[2024-09-03] MEDS: hydrALAZINE HCL 25 MG TABLET PO ×2 (05:55→14:14)
[2024-09-03 06:02] LABS: Basophils % (Auto) 1 % (0-2.5); Eosinophils # (Auto) 0.3 Thou/mm3 (0.0-0.5); Eosinophils % (Auto) 4 % (0-10); Hemoglobin 10.1 g/dL (12.0-16.0); Immature Granulocytes % (Auto) 1 % (0-0); Immature Granulocytes Auto 0.07 Thou/mm3 (0.00-0.00); Lymphocytes # (Auto) 1.4 Thou/mm3 (1.0-4.8); Lymphocytes % (Auto) 20 % (10-50); Mean Corpuscular HGB Conc 33.7 g/dl (31.0-37.0); Mean Corpuscular Hemoglobin 30.9 pg (25.0-35.0); Mean Corpuscular Volume 92 fL (80-100); Monocytes # (Auto) 0.7 Thou/mm3 (0.0-0.8); Monocytes % (Auto) 10 % (0-12); Neutrophils # (Auto) 4.5 Thou/mm3 (1.8-7.7); Neutrophils % (Auto) 64 % (37-80); Nucleated Red Blood Cell % 0 /100 WBC (0); Platelet Count 283 Thou/mm3 (140-440); RDW Standard Deviation 43.8 fL (36.4-46.3); Red Blood Count 3.27 Miln/mm3 (4.00-5.20); White Blood Count 7.1 Thou/mm3 (3.6-11.0)
[2024-09-03 06:54] LABS: Alanine Aminotransferase 26 U/L (10-49); Albumin, Serum 3.2 gm/dL (3.4-4.8); Albumin/Globulin Ratio 1.5 (1.2-2.2); Alkaline Phosphatase 85 U/L (46-116); Anion Gap 9 (7-16); Aspartate Amino Transferase 21 U/L (0-34); BUN/Creatinine Ratio 30 Ratio (12-20); Bilirubin,Total 0.4 mg/dL (0.3-1.2); Blood Urea Nitrogen 9 mg/dL (9-23); Calcium 8.1 mg/dL (8.3-10.6); Calcium (Corrected) 8.7 mg/dL (8.5-10.1); Carbon Dioxide 24.2 mMol/L (20.0-31.0); Chloride 103 mMol/L (98-107); Creatinine (Component) 0.3 mg/dL (0.6-1.3); Estimated Creatinine Clearance 180.4 mL/min (>60); Globulin 2.2 gm/dL (2.3-3.5); Glucose 108 mg/dL (74-106); Osmolality,Calculated 271 (275-295); Potassium 3.4 mMol/L (3.4-5.1); Sodium 136 mMol/L (136-145); Total Protein 5.4 gm/dL (5.7-8.2); eGFR > 60 See Note
[2024-09-03 06:58] LABS: CA 19-9 Antigen* 79 U/mL (<34)
[2024-09-03] MEDS: PANTOPRAZOLE 40 MG TABLET PO (09:53)
[2024-09-03] MEDS: levETIRAcetam 250 MG TABLET 1500 MG PO (09:53)
[2024-09-03] MEDS: SENNA TABLET 1 TAB PO (09:53)
[2024-09-03] MEDS: carBAMazepine 100 MG CHEW 300 MG PO (09:54)
[2024-09-03] MEDS: LOSARTAN POTASSIUM 25 MG TABLET 100 MG PO (09:54)
[2024-09-03] MEDS: TAMSULOSIN HCL 0.4 MG CAPSULE PO (09:55)
--- NOTE | 2024-09-03 10:13 | PC.SS ---
SS spoke to caregiver from retirement and provided her with SS contact information for Brigida. Brigida was unaviable. SS spoke to Mirtha Duran from [facility] who is aware pt will return home and per resident physician, Dr. Jarvis HH has not been ordered. Per Mirtha,
--- NOTE | 2024-09-03 10:17 | PC.SS ---
SS spoke to caregiver from [facility] and provided her with SS contact information for Brigida. Brigida was unavailable. SS spoke to Mirtha Duran from [facility] who is aware pt will return home and per resident physician, Dr. Jarvis HH has not been ordered (pt did not have hip surgery). SS attempted to call [facility] again but they did not answer.
--- NOTE | 2024-09-03 10:58 | ESDS_ITS ---
<Statement entered by Indigo Lebron DO - 09/04/24 08:51> I, Indigo Lebron DO, attest that I was physically present for the marie portions of the service and evaluated the patient with the resident and I reviewed and discussed the case with the resident and agree with the resident's findings and plans of care as documented above Planned Discharge Date 09/03/24 DS: Providers Provider Date of admission: 08/27/24 23:21 Primary care physician: Physician No Primary/Family Admitting Provider: Cherry Acosta MD Attending Provider on Admission: Indigo Lebron DO Consults: 08/27/24 21:28 Consult to Orthopedic Stat Comment: Subtrochanteric fracture right femur Consulting Provider: Bhupinder Mancia 08/27/24 22:43 Consult to Gastroenterology Stat Comment: Consulting Provider: Alexis Zavala Instructions: Mass head of pancreas 08/28/24 03:25 Consult to Cardiology Routine Comment: Consulting Provider: Berhane Perdomo Instructions: perioperative cardiac clearance for elective surgery 08/28/24 08:39 Consult to Neurology / Tele-Neurology Routine Comment: Breakthrough seizures on Keppra and carbamazepine Consulting Provider: Chapin Loya Attending Provider on DC: Angel Krishnan MD Discharging Provider: Angel Krishnan MD DS: Diagnosis Problem List Completed Was Problem List Reviewed/Reconciled?: Yes Hospital Course Hospital Course Hospital course: Patient is a 69-year-old female with past medical history of cerebral palsy, developmental delay, hypertension, seizures, being bedbound since 2020 and taking Eliquis for DVT prophylaxis, urinary retention but initially presented on 08/27/1974 after having a witnessed tonic-clonic seizure lasting for about 30 seconds. Patient lives at residential where she had a seizure and there might have been concern that the patient had hurt her hip on the right. Patient does have a history of a previous fall prior to this episode where several days later they found out that she did have hip fracture but the caregivers were unable to tell us which side. In the ED patient was found to have an acute fracture upon imaging of the right hip. Orthopedic surgeon was consulted for possible ORIF. Patient was also found to have asymptomatic bacteriuria as well as a pancreatic mass that has been present for many years and has been stable in size. Cardiology was consulted for cardiac clearance, however after further discussion with Dr. Arango from [facility] the decision was made to not pursue any further interventions at this time considering patient's status of immobility, wheelchair-bound as well as other comorbidities that do not make her a candidate for surgery. Instead conservative management is being pursued and patient will be sent back to care facility where she is going to follow-up with orthopedics, and neurology in about 2 weeks. Patient's plan is to be discharged on pain management for pain control. Her pain has been well-controlled in our facility. Patient was stable at the time of discharge. Problems addressed during this hospitalization: #Acute intertrochanteric fracture of the right hip #Hx of seizures #Pancreatic mass #History of hypertension #History of hyperlipidemia Plan: Patient will be discharged back to SNF with conservative management of her right hip fracture. Patient can take hydrocodone-acetaminophen 5-325 mg up to three times daily for severe pain, otherwise can use tylenol OTC Patient will start macrobid 100mg PO BID for 7 days for UTI Patient will follow up with orthopedics, Dr Mancia in 2 weeks, see instructions bellow Patient will follow up with Neurology, Dr Singer in 2 weeks I discussed patient's care with attending physician, Dr Vi Krishnan PGY3 Time Spent with Patient Time attestation: Total time spent providing and/or coordinating discharge services: Time spent: Greater than 30 minutes Exam Vital Signs Temp Pulse Resp BP Pulse Ox O2 Del Method O2 Flow Rate 97.6 F 73 17 164/66 H 99 Room Air 1 09/03/24 08:00 09/03/24 09:54 09/03/24 08:00 09/03/24 09:54 09/03/24 08:00 09/03/24 08:00 09/03/24 08:00 Narrative Exam Constitutional: Developmentally delayed elderly female in no acute distress Head: Normocephalic/Atraumatic CVS: RRR, S1 and S2 present, no murmurs, rubs or gallops . RESP: CTAB, no SOB, no rales, rhonchi or wheezing. No respiratory Distress GI: Normal BS, Nontender/Nondistended. MSK: Limited range of motion on the right hip side due to some tenderness. Upper extremities have full range of motion. Skin: Warm to touch, Dry. No rashes or lesions. No hematomas Neuro: legal entity controller II-XII grossly intact. Sensation grossly intact. Psych: (AAO)x1. Appropriate mood and affect. Discharge Plan Plan Patient Disposition: Home w/HOME HEALTH Patient condition on transfer: Stable Care Plan Goals: Patient will be discharged back to SNF with conservative management of her right hip fracture. Patient can take hydrocodone-acetaminophen 5-325 mg up to three times daily for severe pain, otherwise can use tylenol OTC Patient will start macrobid 100mg PO BID for 7 days for UTI Patient will follow up with orthopedics, Dr Mancia in 2 weeks, see instructions bellow Patient will follow up with Neurology, Dr Singer in 2 weeks Prescriptions/Referrals Prescriptions/Med Rec: New hydrocodone-acetaminophen 5-325 mg tablet 1 tab PO Q8H MDD no more than 4 tabs a day PRN (Reason: pain (scale score 7- 10)) Qty: 10 0RF Continued furosemide [Lasix] 40 MG tablet 40 mg PO QAM Qty: 0 Rx Instructions: for edema carbamazepine [Tegretol] 200 MG tablet 200 mg PO BID \ Days Qty: 0 simvastatin 20 MG tablet 20 mg PO HS Qty: 0 levetiracetam 500 MG tablet 1,500 mg PO BID Qty: 0 docusate sodium 100 MG capsule 100 mg PO BID Qty: 0 acetaminophen 325 mg Tablet 650 mg PO Q4H PRN (Reason: temp 101 *F) bisacodyl 10 mg Suppository 10 mg MD PRN PRN (Reason: Constipation) Rx Instructions: If no bm in 2 days May repeat in 8 hr if no result ferrous sulfate 325 mg (65 mg iron) Tablet 325 mg PO QDAY ketoconazole 2 % Cream 1 applic TOPICAL PRN PRN (Reason: Rash) cholecalciferol (vitamin D3) [Vitamin D3] 10 mcg (400 unit) Tablet 400 unit PO QDAY lactulose 10 gram/15 mL Solution 30 ml PO QDAY calcium carbonate 260 mg calcium (648 mg) tablet 600 mg PO BID potassium chloride 8 mEq tablet extended release 8 meq PO QAM Rx Instructions: for hypertension Eliquis 2.5 mg Tablet 2.5 mg PO BID Qty: 70 0RF omeprazole 20 mg Tablet,Delayed Release (Dr/Ec) 20 mg PO QDAY hydralazine 25 mg tablet 25 mg PO TID Qty: 90 0RF metoprolol succinate 50 mg tablet extended release 24 hr 50 mg PO QDAY ascorbic acid (vitamin C) [Vitamin C] 500 mg tablet 500 mg PO QDAY triamcinolone acetonide 0.1 % cream 1 applic TOPICAL PRN PRN (Reason: rash) acetaminophen 500 mg tablet 1,000 mg PO Q4H PRN (Reason: pain) dextromethorphan-guaifenesin 10-100 mg/5 mL syrup 10 ml PO Q6H PRN (Reason: cough/congestion) ipratropium-albuterol 0.5 mg-3 mg(2.5 mg base)/3 mL solution for nebulization 3 ml inhalation Q4H PRN (Reason: respiratory relief/congestion) Rx Instructions: q4-6hrs prn docusate sodium 250 mg capsule 250 mg PO BID losartan-hydrochlorothiazide [Hyzaar] 100-12.5 mg tablet 1 tab PO QDAY multivitamin,vi-lujm-Oh-FA-min Tablet 1 tab PO QDAY Rx Instructions: multivitamins with minerals diltiazem HCl 180 mg capsule,extended release 24hr 180 mg PO HS tamsulosin [Flomax] 0.4 mg capsule 0.4 mg PO QDAY Qty: 30 0RF Discontinued metoprolol succinate 25 mg Tablet Extended Release 24 Hr 25 mg PO QDAY losartan 100 mg tablet 100 mg PO QDAY Qty: 30 0RF Referrals: No Primary/Family,Physician [Primary Care Provider] - Patient/Caregiver Discharge Instructions Discharge Activity: activity as tolerated Other Discharge Activity Instructions:: Orthopedic: #1 she definitely needs heel protectors on discharge. Needs to be logrolled to the left side with pillow between thighs pillow and between legs. Skin care important. I would anticipate that the logroll supine to the left lateral decubitus needs to be done while awake. during sleeping hours she can stay supine. I am sure SNF is very good at watching sacrum and heels. Needs AP pelvis 2 weeks after discharge. Please have x-ray disc brought to my office. I will be happy to make a SNF call in 2 weeks. Education Materials: After a Hip Fracture: Common Questions Print Language: Persian Stand Alone Forms: [facility]ida Award Info., Patient Portal Info Letter Discharge Order Discharge Orders: Discharge (Routine); Ordered 09/03/24 Ordered By: Angel Ford Krishnan Quality Discharge Quality Measures VTE prophylaxis
--- NOTE | 2024-09-03 12:02 | PC.SS ---
SS received call from Brigida, [facility] who is requesting HH Services for PT and home health aide. SS provided her with verbal options for HH and her choice is [facility] or [facility]. Brigida is ok with using [facility] due to being local. SS has setup gurney transportation with [place] at [facility] who then transferred call to [place] from [place] transportation then, call was transfer to [place].? SS was able to setup transportation for 2pm. Ref# [id number].? SS has requested [facility].? Per [facility] telephone sales representative, [facility] is not a guaranteed transport company.? Estimated time is 3-4 hours.? SS has sent patient?s facesheet and ambulance form to [facility] using [employer].? SS has spoken to Marilynn at [facility] who has placed pt on will call list until she has been contacted by [facility]. Pt will return home. Bedside nurse, Kalie is aware. Both Diamante PHILLIPS & Kay are aware. Brigida from [facility] is aware. SS has confirmed with [facility] they are delivering hospital bed and everett lift this morning.
--- NOTE | 2024-09-03 12:10 | PC.SS ---
CHRISTI provided nurseKalie with Brigida's phone# [phone] to give report. SS has informed Dr. Jarvis caregiver is requesting patient's medications be sent to [facility] in [place].
--- NOTE | 2024-09-03 12:49 | PC.NURSE ---
Patient is for discharge back to [facility]. Report and discharge instructions were called in to Carline, patient's nurse around 12:30PM. 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
--- NOTE | 2024-09-03 21:38 | PD.NEUROPROG ---
Documentation for date of: 09/03/24 Subjective Subjective Interval history: Patient was seen and MedSurg today at the bedside. No seizures reported after admission. She is refusing to eat most of the meals. Exam - Neurology Vital Signs Temp Pulse Resp BP Pulse Ox O2 Del Method O2 Flow Rate 97.8 F 83 20 150/64 H 95 Room Air 1 09/03/24 12:00 09/03/24 14:14 09/03/24 12:00 09/03/24 14:14 09/03/24 12:00 09/03/24 08:00 09/03/24 08:00 Narrative Exam General: AAOx2, developmentally delayed, resting comfortably in bed. Cardiovascular: Regular rate and rhythm, no murmurs, rubs, or gallops. Pulmonary: Chest clear to auscultation bilaterally. GI: Nontender to palpitation in lower abdomen, no guarding, active bowel sounds. Extremities: No edema noted lower extremities. Neuro: AAOx2, no focal motor or sensory deficits in the UE or LE bilat Objective Labs 09/03/24 05:15 09/03/24 05:15 Labs: Laboratory Results - last 24 hr 08/29/24 09/03/24 18:22 05:15 WBC 7.1 RBC 3.27 L Hgb 10.1 L Hct 30.0 L MCV 92 MCH 30.9 MCHC 33.7 RDW Std Deviation 43.8 Plt Count 283 Neut % (Auto) 64 Lymph % (Auto) 20 [place] % (Auto) 10 Eos % (Auto) 4 Baso % (Auto) 1 Neut # (Auto) 4.5 Lymph # (Auto) 1.4 [place] # (Auto) 0.7 Eos # (Auto) 0.3 Baso # (Auto) 0.0 Immature Gran # (Auto) 0.07 H Absolute Nucleated RBC 0.00 Immature Gran % 1 H Nucleated RBC % 0 Sodium 136 Potassium 3.4 Chloride 103 Carbon Dioxide 24.2 Anion Gap 9 BUN 9 Creatinine 0.3 L Estim Creat Clear Calc 180.4 eGFR > 60 BUN/Creatinine Ratio 30 H Glucose 108 H Calculated Osmolality 271 L Calcium 8.1 L Corrected Calcium 8.7 Total Bilirubin 0.4 AST 21 ALT 26 Alkaline Phosphatase 85 Total Protein 5.4 L Albumin 3.2 L Globulin 2.2 L Albumin/Globulin Ratio 1.5 CA 19-9 Antigen 79 H Assessment & Plan Additional Assessment & Plan Additional Plan: Patient is a 69 y/o female with PMHx of cerebral palsy, developmental delay, hypertension, seizures, bedbound since 2020 (takes Eliquis DVT prophylaxis) and urinary retention who is admitted for acute intertrochanteric fracture of R hip. #History of cerebral palsy #History of seizures: None reported since admission Continue with Keppra 1500 mg twice daily and carbamazepine 300 mg twice a day. Follow-up with the carbamazepine level as it becomes available. As needed benzo for breakthrough seizures. Patient is stable for discharge from neurology standpoint. #Acute intertrochanteric fracture of the right hip #Hx of Urinary retention #Pancreatic mass #History of hypertension #Hypotension #History of hyperlipidemia #Bedbound #History of cerebral palsy #Developmental delay Continue management per primary team
--- NOTE | 2024-09-04 10:24 | PC.CC ---
Addendum entered by Pranay Garland RN 09/04/24 18:16: Accepted by [facility], start of care 09/06/24. Original Note: Call placed to [facility] to confirm forestry consultant for this patient, Solomon Dickson MD is forestry consultant. Referral sent to [facility] per the agencies preference.
== END 2024-09-03 15:07 | disposition home health service (06) | DRG 536 ==
LOC: SERX 21:07 → SERHOLD 23:44 → S3SX 08-28 03:55
PROVIDERS: Nurse Practitioner Family; Psychiatry & Neurology Neurology; Specialist; Student in an Organized Health Care Education/Training Program; Admitting Provider Internal Medicine; Emergency Provider Emergency Medicine; Visit Provider Internal Medicine
DX: S72.141A Displaced intertrochanteric fracture of right femur, initial encounter for closed fracture (principal); K86.2 Cyst of pancreas; I95.9 Hypotension, unspecified; E78.5 Hyperlipidemia, unspecified; S72.21XA Displaced subtrochanteric fracture of right femur, initial encounter for closed fracture; F79 Unspecified intellectual disabilities; G40.409 Other generalized epilepsy and epileptic syndromes, not intractable, without status epilepticus; G80.9 Cerebral palsy, unspecified; I10 Essential (primary) hypertension; I35.8 Other nonrheumatic aortic valve disorders; K86.9 Disease of pancreas, unspecified; I73.9 Peripheral vascular disease, unspecified; Z79.01 Long term (current) use of anticoagulants; Z86.19 Personal history of other infectious and parasitic diseases; Z74.01 Bed confinement status; Z79.899 Other long term (current) drug therapy; Z87.891 Personal history of nicotine dependence; Z87.440 Personal history of urinary (tract) infections; W19.XXXA Unspecified fall, initial encounter; Z99.3 Dependence on wheelchair; K80.20 Calculus of gallbladder without cholecystitis without obstruction
CPT/HCPCS: 36415; 73552; 73560; 73700; 80053; 80061; 81001; 83735; 84100; 85025; 85610; 85730; 86301; 87077; 87081; 87086; 87186; 93926; 96360; 96361; 99285; J1643; J1956; J2470; J3475; J7030; A9270

== ENCOUNTER → 2024-10-15 | Outpatient (CLI) | payer MEDICARE, MEDICAID, SELFPAY | END | disposition home or self-care (01) | LOC: CDIM 08:59 | PROVIDERS: PCP Family Medicine; Referring Provider Orthopaedic Surgery; Visit Provider Orthopaedic Surgery | DX: Z53.8 Procedure and treatment not carried out for other reasons (principal) ==

== ENCOUNTER → 2024-10-16 | Outpatient (CLI) | payer MEDICARE, MEDICAID, SELFPAY ==
--- NOTE | 2024-10-16 08:52 | XR_ITS ---
Examination:Right hip AP, lateral, AP pelvis 3 views Technique: Hip AP lateral, AP pelvis, 3 views Exam date and time:October 16, [address] right hip and 2024 plain films right hip August 27, 2024 INDICATIONS: History acute intertrochanteric fracture right hip FINDINGS: Partial healing intertrochanteric fracture right hip Stable alignment compared to August 27, 2024 No hip dislocation IMPRESSION: Partial healing intertrochanteric fracture right hip with abundant bone callus formation.
== END | disposition home or self-care (01) ==
LOC: SDIM 08:43
PROVIDERS: PCP Family Medicine; Referring Provider Orthopaedic Surgery; Visit Provider Orthopaedic Surgery
DX: S72.141A Displaced intertrochanteric fracture of right femur, initial encounter for closed fracture (principal); X58.XXXA Exposure to other specified factors, initial encounter
CPT/HCPCS: 73502

== ENCOUNTER → 2024-12-21 | Outpatient (CLI) | payer MEDICARE, MEDICAID, SELFPAY ==
--- NOTE | 2024-12-21 08:45 | XR_ITS ---
Examination:Right hip AP, lateral, AP pelvis 3 views Technique: Hip AP lateral, AP pelvis, 3 views Exam date and time:December 21, 2024 0851 hours INDICATIONS: History right hip fracture 4 months ago. FINDINGS: Right hip fracture with significant healing and residual deformity, stable alignment compared with October 16, 2024 IMPRESSION: Stable alignment or hip fracture compared with October 16, 2024.
== END | disposition home or self-care (01) ==
PROVIDERS: PCP Family Medicine; Referring Provider Orthopaedic Surgery; Visit Provider Orthopaedic Surgery
DX: S72.091A Other fracture of head and neck of right femur, initial encounter for closed fracture (principal); X58.XXXA Exposure to other specified factors, initial encounter
CPT/HCPCS: 73502